=== PATIENT | male | born 1970 | race Caucasian/White ===

== ENCOUNTER 2018-02-12 23:20 | Emergency (ER) | payer OTHER, SELFPAY ==
[2018-02-12 23:21] VITALS: BP 163/81; PULSE 85; RESP 16; TEMP 37; O2SAT 100; BMI 30.8
--- NOTE | 2018-02-12 23:35 | RAD_ITS ---
STUDY: X-RAY - LEFT HAND, ATTENTION FIFTH FINGER REASON FOR EXAM: Male, 47 years old. Smash injury. TECHNIQUE: 3 view(s) of the finger were obtained. COMPARISON: None. FINDINGS: Normal metacarpal head. Normal metacarpophalangeal joint. Normal proximal phalanx. Normal middle phalanx. There is a nondisplaced fracture of the tip of the distal phalanx. Normal proximal interphalangeal joint. Normal distal interphalangeal joint. There is soft tissue swelling. RAD/Finger(s) Min 2 Views IMPRESSION: Fracture of the tip of the distal phalanx. Electronically Signed: Rolly Brandon MD at 23:53 EDT Tel , Service support ,
--- NOTE | 2018-02-12 23:36 | ED.VISSUMM ---
- ER Visit Summary Date of Service: 02/12/18 Chief Complaint: Finger injury History of Present Illness: The patient is a 47 M who is right-hand dominant. He crushed his left small finger between a skid and a metal upright at around 7:30 PM today. He has noted some pain and swelling to the distal phalanx of the small finger. He had a small abrasion which was bleeding. He does not take blood thinners. He denies any other complaints or injuries. Physical Examination: Vital signs unremarkable. Left hand shows swelling of the small finger distal phalanx, diffusely. There is a pinpoint abrasion which is not bleeding. He also has a pinpoint subungual hematoma. Nail intact and normal. No obvious deformities. Normal sensation and capillary refill. Test Results: Xrays pending. Emergency Department Course and Treatment: Patient treated with Motrin and ice pack while awaiting results. X-rays show a tuft fracture. Although he has an abrasion, this is not an open fracture. Nailbed is normal. Patient placed in AlumaFoam splint. Follow-up with corporate care. Rest, ice, elevate. Bnem-mih-lylxehg remedies for pain. Will prescribe a short course of [place]. Treatment Plan: As above Disposition: Discharged Impression: 1. Left small finger tuft fracture This note was generated with [employer] dictation software. It may contain incorrect words, spelling, and punctuation that were not noted in review of the chart prior to signing ED Disposition - Plan for ED Patient: Chief Complaint: Upper Extremity Injury Referrals: NOT,DEFINED [NON-STAFF] -
[2018-02-12] MEDS: Ibuprofen 600 MG Tablet PO (23:48)
--- NOTE | 2018-02-13 00:01 | ED.DEP ---
ED Disposition - Plan for ED Patient: Chief Complaint: Upper Extremity Injury Instructions: ED Fx Finger Closed Prescriptions: Hydrocodone Bitart/Apap 5-325 [[place] 5MG-325MG] 1 tab PO Q6H PRN PRN 3 Days #10 tab PRN Reason: Pain Referrals: Corporate,Care [GROUP OF PHYSICIANS] -
[2018-02-13] MEDS: HYDROcodone Bitartrate/Apap 5/325 Tablet PO (00:13)
== END 2018-02-13 00:13 | disposition home or self-care (01) ==
LOC: ED 23:38
PROVIDERS: Emergency Provider Emergency Medicine
DX: S62.667A Nondisplaced fracture of distal phalanx of left little finger, initial encounter for closed fracture (principal); W23.0XXA Caught, crushed, jammed, or pinched between moving objects, initial encounter; Y93.9 Activity, unspecified; Y92.9 Unspecified place or not applicable; Y99.0 Civilian activity done for income or pay; I10 Essential (primary) hypertension
CPT/HCPCS: 73140; 99284

== ENCOUNTER 2019-08-19 09:14 | Inpatient (IN) | payer BC, SELFPAY ==
[2019-08-19] VITALS (23 sets, daily range): BP systolic 113–184; BP diastolic 69–117; PULSE 65–95; RESP 14–21; TEMP 36.5–36.9; O2SAT 95–100; BMI 29.5; BMI 29.6
--- NOTE | 2019-08-19 09:30 | EKG12_ITS ---
Test Reason : REPEAT CHEST PAIN Blood Pressure : / mmHG Vent. Rate : 098 BPM Atrial Rate : 098 BPM P-R Int : 176 ms QRS Dur : 092 ms QT Int : 356 ms P-R-T Axes : 044 013 066 degrees QTc Int : 454 ms Normal sinus rhythm ST elevation consider inferior injury or acute infarct ACUTE OR / STEMI Confirmed by RONAK GREY, MASHA ([id number]), dictionary editor SRI GUZMAN ([id number]) on 08/20/2019 9:27:08 AM Referred By: Pio Olivarez Confirmed By:MASHA SIMONS MD
--- NOTE | 2019-08-19 09:30 | EKG12_ITS ---
Test Reason : CP Blood Pressure : / mmHG Vent. Rate : 093 BPM Atrial Rate : 093 BPM P-R Int : 168 ms QRS Dur : 088 ms QT Int : 370 ms P-R-T Axes : 041 018 040 degrees QTc Int : 460 ms Normal sinus rhythm Abnormal ECG Subtle ST elevation in III, AVF Confirmed by RONAK GREY, MASHA ([id number]), script editor SRI GUZMAN ([id number]) on 08/20/2019 9:28:05 AM Referred By: Pio Olivarez Confirmed By:MASHA SIMONS MD
--- NOTE | 2019-08-19 09:30 | RAD_ITS ---
STUDY: X-RAY CHEST REASON FOR EXAM: Male, 49 years old. STEMI TECHNIQUE: Single portable frontal chest. COMPARISON: June 15, 2011. FINDINGS: The lungs appear clear. There is no pleural effusion. There is no pneumothorax. Normal size heart. Normal mediastinum and fiona. Normal visualized pulmonary arteries. Normal visualized aortic arch and descending thoracic aorta. There is no evident acute osseous abnormality. There is no demonstrated abnormality of the visualized soft tissue structures of the upper abdomen. RAD/Chest 1 View (Portable) IMPRESSION: No plain film evident acute cardiopulmonary disease. Electronically Signed: Fede Mata MD at 9:48 EST , Service support ,
--- NOTE | 2019-08-19 09:38 | ED.VIS.GEN ---
History of Present Illness Chief Complaint: Chest Pain Informant: Patient Onset: Today - 5 AM Timing: Waxes and wanes Current Severity: Moderate Maximum Severity: Moderate Narrative: Patient presents with chest pain that started at 5 AM this morning when he was at work. He states it was rather severe at onset and he laid his head down on the desk. He states he has been told in the past that he had spasm in his chest and he did not think much of it. He went home and tried to lie down to sleep, but pain became worse and he presented to the emergency room. He has a history of hypertension and high cholesterol. He has not been on medications in quite some time. - Past Medical History (1) High cholesterol Status: Chronic (2) Benign essential HTN Status: Chronic Past Medical History - Allergies and Home Meds Allergies/Adverse Reactions: Allergies No Known Allergies Allergy (Verified 08/19/19 09:21) Primary Care Physician: Care Physician,No Primary [Primary Care Provider] - Prior records reviewed: Yes Surgical History: no surgical history Lives: With Family Smoking Status: Former smoker Review of Systems General: Denies: Chills, Fever Eyes: Denies: Visual changes - bilaterally ENT: Denies: Bilateral ear pain Cardiovascular: Reports: Chest pain Respiratory: Reports: Dyspnea Gastrointestinal: Denies: Nausea, Vomiting Genitourinary: Denies: Dysuria Neurological: Denies: Headache Hematologic: Denies: Easy bruising Allergy: Denies: Uticaria Physical Exam Vital Signs/Narrative: Vital Signs Temp Pulse Resp BP Pulse Ox 08/19/19 09:15 97.7 F L 95 17 174/117 H 100 Inital Vital Signs reviewed: Yes General: Well nourished, Well developed Head: Normocephalic ENT: Moist mucous membranes Neck: Supple Cardiovascular: Regular rate, Regular rhythm Respiratory: No distress, CTA bilaterally Abdomen: Soft, Nontender Skin: Normal color, Rash Neurological: Alert Psychological: - - Anxious Diagnostic/Tx/Re-eval - EKG Initial EKG Interpretation: Sinus Rhythm - Initial EKG was sinus rhythm with minimal elevation in lead III only. Follow-up EKG Interpretation: Sinus Rhythm - ST elevation in the inferior leads with reciprocal ST depression in the high lateral leads. - Medical Decision Making Initial EKG was somewhat concerning in lead III only. EKG was repeated within 5 minutes and showed clear evidence of an inferior STEMI. STEMI alert was called. I spoke with Dr. Olivarez. Patient was consented, given aspirin, Brilinta, and heparin. 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 ED Disposition - Plan for ED Patient: Disposition: Acute Care Hospital [facility] Diagnosis: STEMI (ST elevation myocardial infarction) Referrals: Care Physician,No Primary [Primary Care Provider] -
[2019-08-19 09:42] LABS: Absolute Lymphocyte Count 2.12 X10^3/uL (0.83-4.51); Absolute Neutrophil Count 7.1 X10^3/uL (2.0-7.7); Basophil# 0.05 X10^3/uL; Basophil% 0.5 % (0-1); Eosinophil# 0.14 X10^3/uL; Eosinophils% 1.4 % (0-5); Hematocrit 45.7 % (40-54); Hemoglobin 15.8 g/dL (13.0-16.5); Lymphocyte # 2.12 X10^3/ul (4.0); Lymphocyte % 20.8 % (19-41); Mean Corp Hgb Conc 34.6 g/dL (32-36); Mean Corpuscular Hgb 28.4 pg (27.0-32.0); Mean Corpuscular Volume 82.2 fL (80-94); Mean Platelet Vol. 8.7 fl (6.2-12.0); Monocyte# 0.73 X10^3/uL; Monocyte% 7.1 % (0-10); NRBC Flagged by Analyzer 0 % (0-5); Neutrophil # 7.12 X10^3/uL (2.7-7.7); Neutrophil % 69.7 % (47-70); Platelet Count 377 K/mm3 (150-450); RBC Distribution Width CV 12.7 % (11.6-14.6); RBC Distribution Width SD 37.5 fl (35.1-43.9); Red Blood Count 5.56 M/mm3 (4.6-6.2); White Blood Count 10.2 K/mm3 (4.4-11.0)
[2019-08-19 09:53] LABS: Anion Gap 6 (5-15); BUN 16 mg/dL (7-18); BUN/Creat Ratio 18.2 RATIO (10-20); Calcium,Total 9.9 mg/dL (8.5-10.1); Chloride 108 mmol/L (98-107); Creatinine, Serum 0.88 mg/dL (0.70-1.30); EST Glomerular Filtration Rate 99 mL/min (>60); Est Glom Filt Rate - Afr Amer 120 mL/min (>60); Estimated Creatinine Clearance 124.03 ml/min; Glucose 111 mg/dL (74-106); International Normalized Ratio 1.1; Partial Thromboplast Time 27.5 Seconds (24.1-36.2); Potassium 4.1 mmol/L (3.5-5.1); Prothrombin Time (Protime)PT. 13.8 SECONDS (11.7-14.9); Sodium Level 143 mmol/L (136-145)
[2019-08-19 10:36] LABS: ACT Activated Clotting Time 175 sec (74-137)
[2019-08-19 10:36] LABS: ACT Activated Clotting Time 197 sec (74-137)
--- NOTE | 2019-08-19 10:48 | ECHOCS_ITS ---
Reason For Study: CAD/ASHD Procedure This was a 2D Doppler, Color Flow transthoracic echocardiogram. Contrast injection was performed. Exam performed portable in ICU/CCU. Left Ventricle Normal size and thickness. The estimated ejection fraction is 65 %. Normal diastology for age. No regional wall motion abnormalities noted. Right Ventricle Normal size and thickness. Normal systolic function. Atria Normal left atrium. Normal right atrium. Normal atrial septum. Mitral Valve The mitral valve is structurally normal. No prolapse or stenosis seen. Tricuspid Valve Normal tricuspid valve. Trivial tricuspid valve insufficiency. Right ventricular systolic pressure estimated to be 21 mmHg. Aortic Valve Normal aortic valve. Trisinus/trileaflet aortic valve. Pulmonic Valve Normal pulmonic valve. Trivial pulmonic valve insufficiency. Great Vessels Normal aortic root. Normal arch. Normal inferior vena cava. Inferior vena cava collapse with sniff. Pericardium/Pleural No pericardial effusion. Medication Diluted definity 2ml given slow IV push to enhance endocardial definition. MMode/2D Measurements & Calculations LVIDd: 4.3 cm IVSd: 1.3 cm Ao root diam: 3.1 cm LVIDs: 3.0 cm LVPWd: 1.1 cm RVDd: 4.1 cm FS: 31.4 % LAV(MOD-bp): 37.7 ml LVAd ap4: 30.6 cm2 SV(MOD-sp4): 56.7 ml LAV(MOD-bp) Indexed: 16.1 ml/m2 EDV(MOD-sp4): 94.8 ml LAV(MOD-sp2): 51.4 ml EDV(sp4-el): 98.0 ml LAV(MOD-sp4): 24.2 ml LVAs ap4: 18.3 cm2 ESV(MOD-sp4): 38.0 ml ESV(sp4-el): 39.9 ml EF(MOD-sp4): 59.9 % EF(sp4-el): 59.3 % SV(sp4-el): 58.1 ml LA A4 area: 12.5 cm2 LA dimension(2D): 3.6 cm RA A4 area: 14.3 cm2 Doppler Measurements & Calculations MV E max jatin: 51.3 cm/sec Lat Peak E' Jatin: 8.0 cm/sec Med Peak E' Jatin: 5.1 cm/sec MV A max jatin: 52.1 cm/sec E/E' lat: 6.4 E/E' med: 10.1 MV E/A: 0.99 Ao V2 max: 95.3 cm/sec LV V1 max: 90.6 cm/sec PA V2 max: 74.0 cm/sec Ao max P.6 mmHg LV V1 max P.3 mmHg Ao V2 mean: 69.4 cm/sec Ao mean P.1 mmHg Ao V2 VTI: 19.0 cm TR max jatin: 203.6 cm/sec TR max P.6 mmHg Interpretation Summary The estimated ejection fraction is 65 %. Normal diastology for age. Trivial tricuspid valve insufficiency. Right ventricular systolic pressure estimated to be 21 mmHg. The study was technically difficult. Contrast injection was performed. There is no comparison study available. Ordering Physician: Pio Olivarez Referring Physician: Pio Olivarez Performed By: Deborah Saldana, LORETO, RVT
--- NOTE | 2019-08-19 10:49 | EKG12_ITS ---
Test Reason : AM EKG Blood Pressure : / mmHG Vent. Rate : 058 BPM Atrial Rate : 058 BPM P-R Int : 180 ms QRS Dur : 094 ms QT Int : 446 ms P-R-T Axes : 047 022 025 degrees QTc Int : 437 ms Sinus bradycardia Otherwise normal ECG Confirmed by PERLA GREY, ELI ([id number]), dials supervisor NEAL KISER ([id number]) on 08/22/2019 11:31:29 AM Referred By: Pio Olivarez Confirmed By:ELI DUNCAN MD
--- NOTE | 2019-08-19 10:57 | CL.I_ITS ---
Patient Name: ALCIDES SHAH Study Date: 08/19/2019 Performing: Pio Olivarez MD Ht: 75.19 inches 191 cm : 1970 Wt: 235.89 lbs 107 kg Age: 49 Gender: male BSA: 2.36 PROCEDURE(S) PERFORMED PB86-WBF/COR/LV TJ84-CSI, SEAN AND/OR PTCA, ARTERY OR GRAFT, SINGLE VESSEL CLINICAL PROFILE AND CO-MORBIDITIES Indications: ACS <= 24 hrs, Suspected CAD, Acute Coronary Syndrome, STEMI inferior/lateral Heart Failure: None Stress/Imaging Stress/Image Study Performed: No Angina Classification Anginal Classification w/in 2 Weeks: No symptoms CAD Presentations: STEMI. 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 Unable to cross into ostial OM1 with new 2.0 x 8 Emerge balloon, no additional PCI perfromed on ostia l OM#1. 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 Olivarez Successful Mynx Control closure of RFA. Medical management of remaining CAD. DESCRIPTION OF PROCEDURE The patient arrived to the procedure lab. The risks and benefits of the procedure as well as a full d escription of our services here and lack of surgical backup were fully explained to the patient and/o r their significant other prior to the catheterization. The Timeout was completed, verifying the martha ect patient and procedure. The patient's procedural site was prepped and draped in the usual fashion. Local anesthetic was given subcutaneously to right groin region with Lidocaine 2%. Using a modified Seldinger technique, arterial access was obtained via the right femoral artery, a 6Fr sheath was inse rted.. Left Coronary Artery selective angiography was performed in multiple views using a 4 Fr. JL5 catheter. Right Coronary Artery selective angiography was then performed in multiple views using a 4 Fr. 3DRC catheter. Left Ventriculography was performed in MANCILLA projection using a 4 Fr. Pigtail cathet er. LV to AO pullback pressures were then recordedThe images were reviewed and options discussed. A decision was then made to proceed with an Intervention, IVUS or other adjunct procedure. Arterial sheath was exchanged for a 6 Fr Sheath. ebu 3.75 Guide catheter was inserted and engaged into the LCA. runthrough Guide wire was advanced to the Circumflex. emerge 2.00 x 12 Balloon cathete r was advanced across lesion in the circumflex, mid. PTCA balloon inflated at 9 atms for 5 secs. Hailey ogram performed post balloon dilatation. PTCA balloon inflated at 10 atms for 8 secs. synergy 3.00 x 20 Drug Eluting stent was advanced across the lesion in the circumflex, mid. Angiogram performed post stent deployment. nc emerge 3.5 x 8 Balloon catheter was inserted post stent. Angiogram performed po st balloon dilatation. bmw Guide wire was inserted as a lora wire into the main circ emerge 2.00 x 1 2 Balloon catheter was advanced across lesion in the first obtuse marginal, prox. on bmw PTCA balloon inflated at 8 atms for 8 secs. PTCA balloon inflated at 10 atms for 9 secs. synergy 2.5 x 16 Drug El uting stent was advanced across the lesion in the circumflex artery, mid. Angiogram performed post stent deployment. nc emerge 3.5 x 8 Balloon catheter was inserted post stent. Contrast was injected through the sheath and the Right Iliac and Femoral artery were assessed for possible cl osure device. The arterial sheath was pulled and a Mynx closure device was deployed for hemostasis CORONARY ANGIOGRAPHY DOMINANCE: Co- Dominant LEFT HEART ASSESSMENT Left Ventricular Ejection Fraction: by LV Gram 65 % Normal Left Ventricular systolic function LVEDP: 12 mmHg Normal Left Ventricular End Diastolic Pressure Normal LV wall motion LEFT MAIN: Angiographically normal LEFT ANTERIOR DESCENDING ARTERY: Mild luminal irregularities less than 30% CIRCUMFLEX ARTERY: MID CIRC: 85 % Stenosis RIGHT CORONARY ARTERY: Mild luminal irregularities less than 30% INTERVENTION INFORMATION LESION SITE: Circumflex (Mid) Lesion Complexity: High/C, lesion at bifurcation: Yes, thrombus present: No, lesion length: 36 mm, cu lprit lesion: Yes Pre Stenosis: 85 % Pre intervention MAYELIN flow: 3 PROCEDURE: Drug Eluting Stent with pre and post dilatation Post Stenosis: 0 % Post intervention MAYELIN flow: 3 Lesion Devices: Justino Sci EMERGE MR 2.00x12 BALLOON Terumo .014 Runthrough Extra Floppy 180cm straight Medtronic 6 Fr EBU3.75 100cm Guide Catheter Justino Sci Synergy MR SEAN 3.00x20 Justino Sci NC EMERGE MR 3.50x08 BALLOON Justino Sci Synergy MR SEAN 2.50x16 Lesion Devices: Terumo .014 Runthrough Extra Floppy 180cm straight [place] .014 [employer] [place] Straight 190cm Justino Sci EMERGE MR 2.00x08 BALLOON COMPLICATIONS No Complications PROCEDURE MEDICATIONS Oxygen: 2 L/min via nasal cannula Heparin 6000 unit(s) IV 08/19/2019 09:48:11 Nitro 200 mcg IC 08/19/2019 09:47:24 Nitro 200 mcg IC 08/19/2019 09:47:24 Nitro 200 mcg IC 08/19/2019 09:50:37 SUMMARY OF HEMODYNAMIC DATA Time AIR REST ECG 09:40:38 AO 152/107 (129) SA 09:43:24 LV 143/-20, 14 10:18:50 LV 132/-16, 11 10:18:57 LVp 135/-21, 14 10:19:11 AOp 128/74 (96) 10:19:16 Signed By Pio Olivarez MD On 08/19/2019 10:56:38 AM Pio Olivarez MD
[2019-08-19 11:22] LABS: Cholesterol 255 mg/dL (200); High Density Lipoprotein 44 mg/dL; Triglycerides 109 mg/dL; Very Low Density Lipoprotein 22 mg/dL (5-40)
[2019-08-19] MEDS: 0.9% Normal Saline 1,000 ML 150 ML IV (11:47)
[2019-08-19] MEDS: Acetaminophen 325 MG Tablet 650 MG PO ×2 (11:57→18:22)
[2019-08-19] MEDS: diazePAM 5 MG Tablet PO (11:58)
[2019-08-19] MEDS: Metoprolol Tartrate 25 MG Tablet PO ×2 (12:17→21:04)
[2019-08-19] MEDS: Lisinopril 5 MG Tablet PO (12:18)
--- NOTE | 2019-08-19 12:35 | HP.PCM_ITS ---
Problem List (1) Arteriosclerosis of coronary artery in patient with history of myocardial infarction Status: Chronic Comment: Successful PTCA/SEAN to mid LCX with a 3.0 x 20 Promus Synergy. Unable to cross into ostial OM1 with new 2.0 x 8 Emerge balloon, no additional PCI perfromed on ostial OM#1. Per DJN @ [facility] 08/19/19 (2) Hyperlipidemia Status: Chronic (3) Stented coronary artery Status: Acute Comment: Successful PTCA/SEAN to mid LCX with a 3.0 x 20 Promus Synergy. Unable to cross into ostial OM1 with new 2.0 x 8 Emerge balloon, no additional PCI perfromed on ostial OM#1. 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 Patient felt sudden onset of midsternal chest pain with radiation to left arm associated with mild shortness of breath. Patient admitted that he was having shortness of breath on exertion for few weeks but he was ignored. Patient also has history of hypertension, dyslipidemia but is not on any medications. In ED, twelve-lead EKG showed ST elevation in lead III and a STEMI alert was called. Patient had aspirin and Brilinta and heparin IV bolus. Patient blood pressure was high in ED 170/117, 184/112 and was controlled. Patient had emergent cardiac cath which showed near subtotal occlusion of mid circumflex and PCI was done. Patient admitted in ICU Past Medical History Past Medical History (Chronic Problems): Chronic Problems (Last Updated 08/19/19 @ 11:03 by Ann Haji) Arteriosclerosis of coronary artery in patient with history of myocardial inf arction (Chronic) Successful PTCA/SEAN to mid LCX with a 3.0 x 20 Promus Synergy. Unable to cross into ostial OM1 with new 2.0 x 8 Emerge balloon, no additional PCI perfromed on ostial OM#1. Per DJN @ [facility] 08/19/19 Hyperlipidemia (Chronic) Calculus of kidney and ureter (Chronic) Benign essential HTN (Chronic) Aspiration pneumonia (Chronic) Medical History: Medical History (Last Updated 08/19/19 @ 11:03 by Ann Haji) Arteriosclerosis of coronary artery in patient with history of myocardial infarction (Chronic) I25.10, I25.2 Successful PTCA/SEAN to mid LCX with a 3.0 x 20 Promus Synergy. Unable to cross into ostial OM1 with new 2.0 x 8 Emerge balloon, no additional PCI perfromed on ostial OM#1. Per DJN @ [facility] 08/19/19 Hyperlipidemia (Chronic) E78.5 STEMI (ST elevation myocardial infarction) (Acute) I21.3 Calculus of kidney and ureter (Chronic) N20.2 Benign essential HTN (Chronic) I10 Aspiration pneumonia (Chronic) J69.0 Allergies No Known Allergies Allergy (Verified 08/19/19 09:21) Home Medications: Ambulatory Orders Medication Instructions Recorded Gabapentin 800 mg PO QHS 08/19/19 Pramipexole Di-HCl [Pramipexole 0.5 mg PO QHS 08/19/19 Dihydrochloride] Ramelteon 8 mg PO QHS 08/19/19 Surgical History: Surgical History (Last Updated 08/19/19 @ 11:03 by Ann Haji) Stented coronary artery (Chronic) Onset Date: 08/19/19 Z95.5 Successful PTCA/SEAN to mid LCX with a 3.0 x 20 Promus Synergy. Unable to cross into ostial OM1 with new 2.0 x 8 Emerge balloon, no additional PCI perfromed on ostial OM#1. Per DJN @ [facility] 08/19/19 Surgical History: no surgical history Lives: With Family Smoking Status: Former smoker Tobacco Use: Chew - Quit 2 years ago - *Family History Sibling History Items: Hypertension Review of Systems Constitutional: Denies: Chills, Fever, Weight Change HEENT: Denies: Head Aches, Sinus Congestion, Sinus Drainage Cardiovascular: Reports: Chest Pain. Denies: Palpitations Respiratory: Reports: Shortness of breath at rest, Shortness of breath upon exertion. Denies: Cough, Sputum production Gastrointestinal: Denies: Abdominal Pain, Nausea, Vomiting Genitourinary: Denies: Dysuria Musculoskeletal: Denies: Joint Pain, Joint Tenderness Skin: Denies: Rash, Wounds Neurological: Denies: Numbness, Tingling, Focal weakness Psychiatric: Denies: Anxiety, Depression, Homicidal Ideations, Suicidal Ideations Hematologic/ Lymphatic: Denies: Easy Bruising, Easy Bleeding VTE Information - Inpt Only VTE Present on Admission: No VTE Mechan Device Prophylaxis: None VTE Pharm Prophylaxis ordered?: Yes Patient Problems: Active and Suspected Problems (Last Updated 08/19/19 @ 11:03 by Ann Haji) Stented coronary artery (Acute 08/19/19) Successful PTCA/SEAN to mid LCX with a 3.0 x 20 Promus Synergy. Unable to cross into ostial OM1 with new 2.0 x 8 Emerge balloon, no additional PCI perfromed on ostial OM#1. Per DJN @ [facility] 08/19/19 STEMI (ST elevation myocardial infarction) (Acute) - Physical Exam Vitals/I&O's: Vital Signs Temp Pulse Resp BP Pulse Ox 98.4 F 88 18 164/112 H 98 08/19/19 12:00 08/19/19 12:17 08/19/19 12:00 08/19/19 12:17 08/19/19 12:00 Oxygen Delivery Method Room Air Weight: 236 lb 8.896 oz Body Mass Index (BMI) 29.5 Intake and Output for Last 24 Hours 08/17/19 08/18/19 08/19/19 23:59 23:59 23:59 Output Total 600 / 600 Balance -600 / -600 General: Alert, Oriented x3, Cooperative HEENT: Atraumatic, PERRLA, EOMI, Normocephalic Neck: Supple, No JVD, Negative Carotid Bruits Lungs: Clear to auscultation, Normal air movement, No rhonchi, No rales Cardiovascular: Regular rate, Regular Rhythm, Normal S1, Normal S2, No murmurs Abdomen: Bowel Sounds Present, Soft, Non Tender, Non-Distended Extremities: No edema, Capillary Refill Less than 3 Seconds Skin: No rashes, No breakdown, - - Right groin cardiac cath access site: No bruise or hematoma Musculoskeletal: No Tenderness to Palpation of Joints or Extremities Neurological: Cranial nerves II-XII grossly intact Psych/Mental Status: Normal Affect, Appropriate Laboratory Results 08/19/19 09:20: WBC 10.2, RBC 5.56, Hgb 15.8, Hct 45.7, MCV 82.2, MCH 28.4, MCHC 34.6, RDW Std Deviation 37.5, RDW Coeff of Ottoniel 12.7, Plt Count 377, MPV 8.7, Immature Gran % (Auto) 0.500, Neut % (Auto) 69.7, Lymph % (Auto) 20.8, [place] % (Auto) 7.1, Eos % (Auto) 1.4, Baso % (Auto) 0.5, Absolute Neuts (auto) 7.1, Absolute Lymphs (auto) 2.12, Nucleated RBC % 0 08/19/19 09:20: PT 13.8, INR 1.1, APTT 27.5 08/19/19 09:20: Sodium 143, Potassium 4.1, Chloride 108 H, Carbon Dioxide 29.0, Anion Gap 6, BUN 16, Creatinine 0.88, Estim Creat Clear Calc 124.03, Est GFR (MDRD) Af Amer 120, Est GFR (MDRD) Non-Af 99, BUN/Creatinine Ratio 18.2, Glucose 111 H, Calcium 9.9, Troponin I 0.076 H 08/19/19 09:20: Triglycerides 109, Cholesterol 255 H, LDL Cholesterol 189 H, VLDL Cholesterol 22, HDL Cholesterol 44 08/19/19 09:46: Activated Clotting Time 175 H 08/19/19 10:20: Activated Clotting Time 197 H Current Medications Acetaminophen (Tylenol) 650 mg PO Q6H PRN PRN PRN Reason: Pain Score 1-3/10 Last Admin: 08/19/19 11:57 Dose: 650 mg Documented by: Aspirin (Ecotrin) 81 mg PO DAILY@0800 [facility] Atorvastatin Calcium (Lipitor) 80 mg PO QHS [facility] Atropine Sulfate () 0.5 mg IV UD PRN PRN Reason: HR <50 bpm Diazepam (Valium) 5 mg PO Q6H PRN PRN PRN Reason: BACK SPASMS/ANXIETY Last Admin: 08/19/19 11:58 Dose: 5 mg Documented by: Gabapentin (Neurontin) 800 mg PO QHS [facility] Heparin Sodium (Beef Lung) (Heparin 500 Unit/5 Ml (100/Ml)) 500 unit IV UD PRN PRN Reason: HEPARIN FLUSH Sodium Chloride () 1,000 mls @ 150 mls/hr IV .Q6H40M [facility] Stop: 08/19/19 17:28 Last Admin: 08/19/19 11:47 Dose: 150 mls/hr Documented by: Labetalol HCl (Trandate) 5 mg IV X1 PRN PRN Reason: SBP > 160 when pulling sheath Lisinopril (Zestril) 5 mg PO DAILY [facility] Last Admin: 08/19/19 12:18 Dose: 5 mg Documented by: Metoclopramide HCl (Reglan) 5 mg IV Q6H PRN PRN PRN Reason: NAUSEA/VOMITING Metoprolol Tartrate (Lopressor (Beta Veronica)) 25 mg PO BID [facility] Last Admin: 08/19/19 12:17 Dose: 25 mg Documented by: Morphine Sulfate () 2 - 4 mg IV Q4H PRN PRN PRN Reason: Pain Score 1-10/10 Nitroglycerin (Nitrostat) 0.4 mg SUBLINGUAL Q5M PRN PRN Reason: CARDIAC/CHEST PAIN Non-Formulary Medication (Ramelteon) 8 mg PO QHS [facility] Pramipexole Dihydrochloride (Mirapex) 0.5 mg PO QHS [facility] Sodium Chloride () 500 ml IV BOLUS PRN PRN Reason: VASO-VAGAL PROTOCOL Ticagrelor (Brilinta) 90 mg PO BID [facility] Assessment/Plan All Active Problems (Last Updated 08/19/19 @ 11:03 by Ann Haji) Stented coronary artery (Acute 08/19/19) STEMI (ST elevation myocardial infarction) (Acute) The patient is a 49 year old M with history of hypertension and dyslipidemia came to ER with chest pain that started about 5 AM while he was at work. Patient felt sudden onset of midsternal chest pain with radiation to left arm associated with mild shortness of breath. In ED, twelve-lead EKG showed ST elevation in lead III and a STEMI alert was called. Patient had aspirin and Brilinta and heparin IV bolus. Patient blood pressure was high in ED 170/117, 184/112 and was controlled. Patient had emergent cardiac cath which showed near subtotal occlusion of mid circumflex and PCI was done. 1 Inferior wall STEMI/single-vessel coronary artery disease: Patient is admitted in ICU. Cardiac cath showed EF 65% by LV gram single-vessel coronary artery disease of mid left circumflex. On aspirin, Brilinta, lisinopril, metoprolol and high intensity statin, atorvastatin 80 mg at bedtime. 2D echo is ordered. 2. Hypertension: On lisinopril 5 mg daily. Currently blood pressure is controlled. Needs further follow-up and titrate up the dose as needed. 3. Dyslipidemia: Fasting profile shows total cholesterol 255, LDL 189, HDL 44: On atorvastatin as mentioned above. 4. DVT prophylaxis: On Lovenox 40 mg to be started 24 hours after the removal of sheath. BiLateral SCDs Code Visit Inpatient E&M: 25943 Init Hosp L3
--- NOTE | 2019-08-19 13:06 | CRPHASE1_ITS ---
Patient Communication PHII Cardiac Rehab Discussed with Patient:: Yes Guide to Cardiac Rehab Given to Patient:: Yes Cardiac Rehab Facility Choice List Given to Patient:: Yes - pt chooses [facility] Choice Program [facility] CR PHII:: Communication Given to CR, Refer to [facility] Conservation Or Heritage Architect:: Pio Olivarez Phase II Cardiac Rehab:: Yes Sessions:: 36 sessions - 3 days/wk, 12 weeks Risk Factors/Lifestyle Hx Hypertension: Yes Hx Dyslipidemia: Yes Hx Obesity: Yes Height: 1.91 m Weight:: 107.048 kg BMI: 29.5 Laboratory Values: Cardiac Rehab Phase I Labs Triglycerides 109 mg/dL (-199) 08/19/19 09:20 Cholesterol 255 mg/dL (200) H 08/19/19 09:20 LDL Cholesterol 189 mg/dL (0-130) H 08/19/19 09:20 HDL Cholesterol 44 mg/dL (40-) 08/19/19 09:20 Phase I Education Given On:: [place], Nutrition, Antiplatelet medication, CHF, Smoking cessation, Diabetes - Type I, Diabetes - Type II Issues Affecting Care:: None Knowledge of Condition:: Yes Hospital Course Cardiac Cath Date:: 08/19/19 Medical/Surgical History CA:: Yes - STEMI Hypertension:: Yes Dyslipidemia:: Yes Discharge/Home/Social Eval Discharge Disposition: Home Cardiac Rehabilitation Info Cardiac Rehabilitation Program Information: Cardiac Rehabilitation is important for patients like you who are recovering from a heart problem. Cardiac rehabilitation programs are recognized as integral to the continued care of the patient with coronary heart disease. The cardiac rehabilitation program is designed to optimize a patient's physical, psychological, and social functioning. Health neonatal intensive care unit nurse work in cardiac rehabilitation programs and assist you with getting the treatments you need to get stronger and healthier - like exercise, healthy eating habits, and medications. Cardiac rehabilitation has been show to help people with heart problems live longer and have better life enjoyment than people who do not go to cardiac rehabilitation. Please contact the Cardiac Rehabilitation Program at [facility] at in two weeks if you have not heard from them.
--- NOTE | 2019-08-19 13:10 | CRPH1.INSTRU ---
General Education CAD and cardiac anatomy and function:: Patient communicates acknowledgment Explanation of diagnoses and procedures:: Patient communicates acknowledgment Sign/Symptoms of AL:: Patient communicates acknowledgment Antiplatelet therapy: Patient communicates acknowledgment Proper use of NTG-SL: Not instructed Emergency procedures and activation of EMS: Patient communicates acknowledgment Compliance of all prescribed medications: Patient communicates acknowledgment Smoking Nicotine/Smoking Response Code:: Patient communicates acknowledgment Dyslipidemia Patient Dyslipidemia Risk Factors Are:: Total Cholesterol, Triglycerides Dyslipidemia Response Code:: Patient communicates acknowledgment Overweight/Obesity Patient Overweight/Obesity Risk Factors Are:: Overweight = 26-29 Recommendations Include:: Weight loss of 5-10%, Reduced calorie diet, Exercise 5-7 times/week Overweight/Obesity:: Patient communicates acknowledgment Hypertension Recommendations Include:: Maintain BP <130/85, BP <130/80 if diabetic, DASH dietary guidelines, Decrease/maintain normal body weight, Moderation of ETOH Hypertension:: Patient communicates acknowledgment Heart Disease Heart Disease Response Code:: Patient communicates acknowledgment Diabetes Diabetes:: Patient communicates acknowledgment Metabolic Syndrome Metabolic Syndrome Response Code:: Patient communicates acknowledgment Sedentary Sedentary Response Code:: Patient communicates acknowledgment Stress Stress Response Code:: Patient communicates acknowledgment
[2019-08-19] MEDS: Pramipexole Di-HCl 0.5 MG Tablet PO (21:04)
[2019-08-19] MEDS: Atorvastatin Calcium 80 MG Tablet PO (21:04)
[2019-08-19] MEDS: TICAGRELOR 90 MG TABLET PO (21:04)
[2019-08-19] MEDS: Gabapentin 800 MG Tablet PO (21:04)
[2019-08-19] MEDS: RAMELTEON 8 MG TABLET PO (21:05)
[2019-08-20] VITALS (18 sets, daily range): BP systolic 84–132; BP diastolic 52–87; PULSE 50–91; RESP 12–20; TEMP 36.6–37.2; O2SAT 95–100
[2019-08-20 04:15] LABS: Hematocrit 39.7 % (40-54); Hemoglobin 13.5 g/dL (13.0-16.5); Mean Corpuscular Hgb 28.3 pg (27.0-32.0); Mean Corpuscular Volume 83.2 fL (80-94); Mean Platelet Vol. 8.7 fl (6.2-12.0); Platelet Count 261 K/mm3 (150-450); RBC Distribution Width CV 12.8 % (11.6-14.6); RBC Distribution Width SD 38.6 fl (35.1-43.9); Red Blood Count 4.77 M/mm3 (4.6-6.2); White Blood Count 8.1 K/mm3 (4.4-11.0)
[2019-08-20 04:59] LABS: AST(SGOT) 23 U/L (15-37); Alanine Aminotransfer ALT/SGPT 39 U/L (16-61); Albumin, Serum 3.3 g/dL (3.2-5.0); Alkaline Phosphatase 83 U/L (45-117); Anion Gap 4 (5-15); BUN 15 mg/dL (7-18); BUN/Creat Ratio 19.4 RATIO (10-20); Calcium,Total 8.4 mg/dL (8.5-10.1); Chloride 108 mmol/L (98-107); Creatinine, Serum 0.77 mg/dL (0.70-1.30); EST Glomerular Filtration Rate 115 mL/min (>60); Est Glom Filt Rate - Afr Amer 139 mL/min (>60); Estimated Creatinine Clearance 141.75 ml/min; Globulin 3.2 g/dL (2.2-4.2); Glucose 99 mg/dL (74-106); Potassium 4.3 mmol/L (3.5-5.1); Protein, Total 6.5 g/dL (6.4-8.2); Sodium Level 139 mmol/L (136-145)
[2019-08-20] MEDS: Aspirin E.C. 81 MG Tablet PO (08:20)
[2019-08-20] MEDS: Acetaminophen 325 MG Tablet 650 MG PO ×2 (08:20→16:48)
--- NOTE | 2019-08-20 08:22 | PN_ITS ---
Patient Problems: Active and Suspected Problems (Last Updated 08/19/19 @ 11:03 by Ann Haji) Stented coronary artery (Acute 08/19/19) Successful PTCA/SEAN to mid LCX with a 3.0 x 20 Promus Synergy. Unable to cross into ostial OM1 with new 2.0 x 8 Emerge balloon, no additional PCI perfromed on ostial OM#1. Per DJN @ [facility] 08/19/19 STEMI (ST elevation myocardial infarction) (Acute) Reason for Visit: Inferior wall STEMI. 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 Currently 112/65. Heart rate normal sinus rhythm. Vitals/I&O's: Vital Signs Temp Pulse Resp BP Pulse Ox 97.9 F 79 16 112/65 100 08/20/19 04:00 08/20/19 07:31 08/20/19 07:00 08/20/19 07:00 08/20/19 07:00 Oxygen Delivery Method Room Air Weight: 231 lb 0.711 oz Body Mass Index (BMI) 29.5 Intake and Output for Last 24 Hours 08/18/19 08/19/19 08/20/19 23:59 23:59 23:59 Intake Total 1600 / 1600 120 / 120 Output Total 1350 / 1350 Balance 250 / 250 120 / 120 General: Alert, Oriented x3, Cooperative HEENT: Atraumatic, PERRLA, EOMI, Normocephalic Neck: Supple, No JVD, Negative Carotid Bruits Lungs: Clear to auscultation, Normal air movement, No rhonchi, No wheeze, No rales Cardiovascular: Regular rate, Regular Rhythm, Normal S1, Normal S2, No murmurs, - - Normal sinus rhythm on cardiac telemetry Abdomen: Bowel Sounds Present, Soft, Non Tender Extremities: No edema, Capillary Refill Less than 3 Seconds Skin: No rashes, No breakdown Musculoskeletal: No Tenderness to Palpation of Joints or Extremities Neurological: Cranial nerves II-XII grossly intact Psych/Mental Status: Normal Affect, Appropriate Laboratory Results 08/19/19 09:20: WBC 10.2, RBC 5.56, Hgb 15.8, Hct 45.7, MCV 82.2, MCH 28.4, MCHC 34.6, RDW Std Deviation 37.5, RDW Coeff of Ottoniel 12.7, Plt Count 377, MPV 8.7, Immature Gran % (Auto) 0.500, Neut % (Auto) 69.7, Lymph % (Auto) 20.8, [place] % (Auto) 7.1, Eos % (Auto) 1.4, Baso % (Auto) 0.5, Absolute Neuts (auto) 7.1, Absolute Lymphs (auto) 2.12, Nucleated RBC % 0 08/19/19 09:20: PT 13.8, INR 1.1, APTT 27.5 08/19/19 09:20: Sodium 143, Potassium 4.1, Chloride 108 H, Carbon Dioxide 29.0, Anion Gap 6, BUN 16, Creatinine 0.88, Estim Creat Clear Calc 124.03, Est GFR (MDRD) Af Amer 120, Est GFR (MDRD) Non-Af 99, BUN/Creatinine Ratio 18.2, Glucose 111 H, Calcium 9.9, Troponin I 0.076 H 08/19/19 09:20: Triglycerides 109, Cholesterol 255 H, LDL Cholesterol 189 H, VLDL Cholesterol 22, HDL Cholesterol 44 08/19/19 09:46: Activated Clotting Time 175 H 08/19/19 10:20: Activated Clotting Time 197 H 08/19/19 12:50: Troponin I 0.860 H* 08/19/19 14:45: Troponin I 1.370 H* 08/19/19 18:05: Troponin I 2.110 H* 08/20/19 04:00: WBC 8.1, RBC 4.77, Hgb 13.5, Hct 39.7 L, MCV 83.2, MCH 28.3, MCHC 34.0, RDW Std Deviation 38.6, RDW Coeff of Ottoniel 12.8, Plt Count 261, MPV 8.7 08/20/19 04:00: Sodium 139, Potassium 4.3, Chloride 108 H, Carbon Dioxide 27.0, Anion Gap 4 L, BUN 15, Creatinine 0.77, Estim Creat Clear Calc 141.75, Est GFR (MDRD) Af Amer 139, Est GFR (MDRD) Non-Af 115, BUN/Creatinine Ratio 19.4, Glucos e 99, Calcium 8.4 L, Total Bilirubin 0.70, AST 23, ALT 39, Alkaline Phosphatase 83, Total Protein 6.5, Albumin 3.3, Globulin 3.2, Albumin/Globulin Ratio 1.0 Current Medications Acetaminophen (Tylenol) 650 mg PO Q6H PRN PRN PRN Reason: Pain Score 1-3/10 Last Admin: 08/20/19 08:20 Dose: 650 mg Documented by: Aspirin (Ecotrin) 81 mg PO DAILY@0800 [facility] Last Admin: 08/20/19 08:20 Dose: 81 mg Documented by: Atorvastatin Calcium (Lipitor) 80 mg PO QHS [facility] Last Admin: 08/19/19 21:04 Dose: 80 mg Documented by: Atropine Sulfate () 0.5 mg IV UD PRN PRN Reason: HR <50 bpm Diazepam (Valium) 5 mg PO Q6H PRN PRN PRN Reason: BACK SPASMS/ANXIETY Last Admin: 08/19/19 11:58 Dose: 5 mg Documented by: Enoxaparin Sodium (Lovenox) 40 mg SC DAILY [facility] Gabapentin (Neurontin) 800 mg PO QHS [facility] Last Admin: 08/19/19 21:04 Dose: 800 mg Documented by: Heparin Sodium (Beef Lung) (Heparin 500 Unit/5 Ml (100/Ml)) 500 unit IV UD PRN PRN Reason: HEPARIN FLUSH Labetalol HCl (Trandate) 5 mg IV X1 PRN PRN Reason: SBP > 160 when pulling sheath Lisinopril (Zestril) 5 mg PO DAILY [facility] Last Admin: 08/19/19 12:18 Dose: 5 mg Documented by: Metoclopramide HCl (Reglan) 5 mg IV Q6H PRN PRN PRN Reason: NAUSEA/VOMITING Metoprolol Tartrate (Lopressor (Beta Veronica)) 25 mg PO BID [facility] Last Admin: 08/19/19 21:04 Dose: 25 mg Documented by: Morphine Sulfate () 2 - 4 mg IV Q4H PRN PRN PRN Reason: Pain Score 1-10/10 Nitroglycerin (Nitrostat) 0.4 mg SUBLINGUAL Q5M PRN PRN Reason: CARDIAC/CHEST PAIN Pramipexole Dihydrochloride (Mirapex) 0.5 mg PO QHS [facility] Last Admin: 08/19/19 21:04 Dose: 0.5 mg Documented by: Sodium Chloride () 500 ml IV BOLUS PRN PRN Reason: VASO-VAGAL PROTOCOL Ticagrelor (Brilinta) 90 mg PO BID [facility] Last Admin: 08/19/19 21:04 Dose: 90 mg Documented by: STROKE Vital Signs/Narrative: Vital Signs Pulse Resp BP Pulse Ox 08/20/19 07:31 79 08/20/19 07:00 73 16 112/65 100 08/20/19 06:00 56 L 13 98/62 99 08/20/19 05:00 50 L 17 105/85 H 98 Medical Necessity - Tobacco Use Smoking Status: Former smoker Tobacco Use: Chew - Quit 2 years ago Assessment/Plan All Active Problems (Last Updated 08/19/19 @ 11:03 by Ann Haji) Stented coronary artery (Acute 08/19/19) STEMI (ST elevation myocardial infarction) (Acute) The patient is a 49 year old M with history of hypertension and dyslipidemia came to ER with chest pain that started about 5 AM while he was at work. Patient felt sudden onset of midsternal chest pain with radiation to left arm associated with mild shortness of breath. In ED, twelve-lead EKG showed ST elevation in lead III and a STEMI alert was called. Patient had aspirin and Brilinta and heparin IV bolus. Patient blood pressure was high in ED 170/117, 184/112 and was controlled. Patient had emergent cardiac cath which showed near subtotal occlusion of mid circumflex and PCI was done. 1 Inferior wall STEMI/single-vessel coronary artery disease: Patient is admitted in ICU. Cardiac cath showed EF 65% by LV gram single-vessel coronary artery disease of mid left circumflex. On aspirin, Brilinta, lisinopril, metoprolol and high intensity statin, atorvastatin 80 mg at bedtime. 2D echo is ordered. 08/20: Discussed with lead maintenance technician. Need 1 more day of monitoring. On low-dose lisinopril 5 mg daily. Continue aspirin, Brilinta, beta-veronica metoprolol and atorvastatin. 2. Hypertension: On lisinopril 5 mg daily. Currently blood pressure is controlled. 08/20: Blood pressure is on lower side. Continue lisinopril with holding par ameter. 3. Dyslipidemia: Fasting profile shows total cholesterol 255, LDL 189, HDL 44: On atorvastatin as mentioned above. 4. DVT prophylaxis: On Lovenox 40 mg to be started 24 hours after the removal of sheath. BiLateral SCDs Code Visit Inpatient E&M: 36010 Subs Hosp L3
--- NOTE | 2019-08-20 08:48 | PN.CARD_ITS ---
Subjectve: Patient doing very well this morning. Minimal chest pain from yesterday, mostly some soreness, right groin is clean/dry/intact, no evidence of thrills, bruits or hematoma. No significant tenderness. 2+ DP and PT pulses bilaterally. EKG shows normal sinus rhythm with complete resolution of his inferior ST elevation and minimal inferior Q waves. Max troponin 2.1 thus far. Telemetry negative. Echo pending. Objective: Vital Signs Temp Pulse Resp BP Pulse Ox 98.5 F 68 13 119/77 100 08/20/19 08:00 08/20/19 08:00 08/20/19 08:00 08/20/19 08:00 08/20/19 08:00 Oxygen Delivery Method Room Air Weight: 231 lb 0.711 oz Body Mass Index (BMI) 29.5 Intake and Output for Last 24 Hours 08/18/19 08/19/19 08/20/19 23:59 23:59 23:59 Intake Total 1600 / 1600 120 / 120 Output Total 1350 / 1350 Balance 250 / 250 120 / 120 General: Awake, Alert, Oriented x 3 HEENT: PERRL, EOMI, Sclera Non Icteric Neck: Supple, Good ROM, No Lymph Node Enlargement Lungs: Clear to auscultation Cardiovascular: Regular Rhythm, Normal S1, Normal S2, No Murmurs, No Rubs, No Gallops 08/19/19 09:20: WBC 10.2, RBC 5.56, Hgb 15.8, Hct 45.7, MCV 82.2, MCH 28.4, MCHC 34.6, Plt Count 377, MPV 8.7, Immature Gran % (Auto) 0.500, Neut % (Auto) 69.7, Lymph % (Auto) 20.8, [place] % (Auto) 7.1, Eos % (Auto) 1.4, Baso % (Auto) 0.5, Absolute Neuts (auto) 7.1, Nucleated RBC % 0 08/19/19 09:20: PT 13.8, INR 1.1, APTT 27.5 08/19/19 09:20: Sodium 143, Potassium 4.1, Chloride 108 H, Carbon Dioxide 29.0, Anion Gap 6, BUN 16, Creatinine 0.88, Est GFR (MDRD) Af Amer 120, Est GFR (MDRD) Non-Af 99, BUN/Creatinine Ratio 18.2, Glucose 111 H, Calcium 9.9, Troponin I 0.076 H 08/19/19 09:20: Triglycerides 109, Cholesterol 255 H, LDL Cholesterol 189 H, VLDL Cholesterol 22, HDL Cholesterol 44 08/19/19 12:50: Troponin I 0.860 H* 08/19/19 14:45: Troponin I 1.370 H* 08/19/19 18:05: Troponin I 2.110 H* 08/20/19 04:00: WBC 8.1, RBC 4.77, Hgb 13.5, Hct 39.7 L, MCV 83.2, MCH 28.3, MCHC 34.0, Plt Count 261, MPV 8.7 08/20/19 04:00: Sodium 139, Potassium 4.3, Chloride 108 H, Carbon Dioxide 27.0, Anion Gap 4 L, BUN 15, Creatinine 0.77, Est GFR (MDRD) Af Amer 139, Est GFR (MDRD) Non-Af 115, BUN/Creatinine Ratio 19.4, Glucose 99, Calcium 8.4 L, Total Bilirubin 0.70 Rhythm: EKG: ECHO: Pending Stress Test: Cardiac Cath: PCI: CT Surgery: Holter monitor: EPS: PPM: CXR: Chest CT Scan: Medical Necessity - Tobacco Use Smoking Status: Former smoker Tobacco Use: Chew - Quit 2 years ago Assessment/Plan 1. Coronary artery disease: The patient presents with acute inferior wall ST elevation myocardial infarction and underwent successful emergent angioplasty and drug-eluting stenting x2 to the left circumflex with an excellent result. The patient has no additional coronary arteries that require further evaluation. An echocardiogram is pending. At this point I would recommend continuing the patient on baby aspirin, B rilinta, Lopressor and lisinopril. We will decrease his lisinopril to 2.5 mg a day given his asymptomatic hypotension. I would recommend continued telemetry monitoring but on a PCU status. The bernadette ent has no significant arrhythmias and is tolerating his medicines well, he may be discharged home tomorrow morning. Patient require least 1 week of work off given his STEMI and right groin access. Patient will be enrolled in cardiac rehab which will he will attend in 2 weeks time. 2. Hyperlipidemia: Patient was initiated on antilipid therapy of Lipitor. He requires aggressive LDL reduction. Repeat lipid profile in 6 weeks time. 3. Thank you very much for the opportunity to participate in the cardiac care of your patient. Discussed with Dr. Weathers. Code Visit Inpatient E&M: 33762 Subs Hosp L2
--- NOTE | 2019-08-20 09:55 | CASEMGMT ---
RN CM Assessment Presentation: PTCA/SEAN to mid LCx, PCI ostial OM#1 Intro role of CM and purpose of RN CM assessment. Demographics, PCP and Pharmacy verified. PCP: No PCP. List of [facility] PCP's given to pt (from [employer] website). Reviewed process and benefits for establishing with local PCP on discharge. Pt is agreeable would like to set this up on his own after reviewing list. Specialists: Dr. Olivarez, cardiology Preferred Pharmacy: [facility] Insurance: [employer] Prescription Benefit: yes. Reviewed Brilinta Card and copay reduction savings at pharmacy. Pt has good understanding including strict medication compliance as ordered by physician and f/u as recommended. LNOK: Drea Zambrano Living Arrangements: Lives independently, no ambulatory DME or care needs. Transportation: drives DME: Cpap Patient DC goals: Home DC PLAN: Home. Lydia PERKINS RN ACM
[2019-08-20] MEDS: Lisinopril 2.5 MG Tablet PO (10:07)
[2019-08-20] MEDS: Metoprolol Tartrate 25 MG Tablet PO ×2 (10:07→21:30)
[2019-08-20] MEDS: TICAGRELOR 90 MG TABLET PO ×2 (10:07→21:30)
--- NOTE | 2019-08-20 10:49 | EKG12_ITS ---
Test Reason : PCI Blood Pressure : / mmHG Vent. Rate : 088 BPM Atrial Rate : 088 BPM P-R Int : 182 ms QRS Dur : 088 ms QT Int : 366 ms P-R-T Axes : 057 029 029 degrees QTc Int : 442 ms Normal sinus rhythm Normal ECG Confirmed by PERLA GREY, ELI ([id number]), editorial manager GABY PRUETT ([id number]) on 08/23/2019 3:22:43 PM Referred By: Pio Olivarez Confirmed By:ELI DUNCAN MD
[2019-08-20] MEDS: Morphine 4 MG/ML Syringe IV (12:24)
[2019-08-20] MEDS: Enoxaparin 40 MG/0.4 ML Syringe SC (12:24)
--- NOTE | 2019-08-20 12:25 | CASEMGMT ---
RN CM Note: Updated pt's pharmacy correctly in computer. Bettye Ko. Call to [facility]- pharmacy is open tomorrow 9-5pm. Pt is aware. Lydia PERKINS RN ACM
[2019-08-20] MEDS: Gabapentin 800 MG Tablet PO (21:29)
[2019-08-20] MEDS: RAMELTEON 8 MG TABLET PO (21:29)
[2019-08-20] MEDS: Atorvastatin Calcium 80 MG Tablet PO (21:30)
[2019-08-20] MEDS: Pramipexole Di-HCl 0.5 MG Tablet PO (21:30)
[2019-08-21] VITALS: PULSE 71
[2019-08-21 03:15] VITALS: BP 102/59; PULSE 79; RESP 17; TEMP 36.7; O2SAT 96
[2019-08-21 04:00] VITALS: PULSE 61
[2019-08-21 07:49] VITALS: PULSE 81
--- NOTE | 2019-08-21 07:57 | DCINST_ITS ---
- Discharge Diagnoses Current Active Problems: Current Active and Chronic Problems (Last Updated 08/19/19 @ 11:03 by Ann Haji) Arteriosclerosis of coronary artery in patient with history of myocardial infarction (Chronic) Successful PTCA/SEAN to mid LCX with a 3.0 x 20 Promus Synergy. Unable to cross into ostial OM1 with new 2.0 x 8 Emerge balloon, no additional PCI perfromed on ostial OM#1. Per [facility] @ [facility] 08/19/19 Hyperlipidemia (Chronic) Stented coronary artery (Acute 08/19/19) Successful PTCA/SEAN to mid LCX with a 3.0 x 20 Promus Synergy. Unable to cross into ostial OM1 with new 2.0 x 8 Emerge balloon, no additional PCI perfromed on ostial OM#1. [facility] 08/19/19 STEMI (ST elevation myocardial infarction) (Acute) You will use the following diet at home:: Cardiac Weight Bearing Status: Weight bearing as tolerated Additional Activity Instructions:: No riding, heavy lifting or driving or heavy work for 1 week. Work off for 1 week Call your doctor if you observe: Fever of 101 or Higher, Coldness, Increased Pain, Change in Color, Inability to urinate, Inability to have a bowel movement, Shortness of breath, Dizziness, Fainting spells, Swelling in the ankles, Chest pain, Prolonged hiccoughing, Increased palpitations (irregular heartbeat), Calf discomfort, Uncontrolled pain Allergies/Adverse Reactions: Allergies No Known Allergies Allergy (Verified 08/19/19 09:21) Medications to take at Discharge Gabapentin 800 mg PO QHS 08/19/19 Pramipexole Di-HCl [Pramipexole Dihydrochloride] 0.5 mg PO QHS 08/19/19 Ramelteon 8 mg PO QHS 08/19/19 Aspirin E.C. [Ecotrin] 81 mg PO DAILY@0800 #30 tab 08/21/19 Atorvastatin Calcium [Lipitor] 80 mg PO QHS #30 tab 08/21/19 Lisinopril [Zestril] 2.5 mg PO DAILY #30 tab 08/21/19 Metoprolol Tartrate [Lopressor (beta opal)] 25 mg PO BID #60 tab 08/21/19 Nitroglycerin (INPATIENT USE) [Nitrostat] 0.4 mg SUBLINGUAL Q5M PRN #30 tab.subl 08/21/19 Ticagrelor [Brilinta] 90 mg PO BID #60 tab 08/21/19 The following prescriptions were given: Ticagrelor [Brilinta] 90 mg PO BID #60 tab Transmission Status: Pending to [id number] Aspirin E.C. [Ecotrin] 81 mg PO DAILY@0800 #30 tab Transmission Status: Pending to [facility] [place] [address] Atorvastatin Calcium [Lipitor] 80 mg PO QHS #30 tab Transmission Status: Pending to [facility] Metoprolol Tartrate [Lopressor (beta opal)] 25 mg PO BID #60 tab Transmission Status: Pending to [facility] [place] [address] Nitroglycerin (INPATIENT USE) [Nitrostat] 0.4 mg SUBLINGUAL Q5M PRN #30 tab.subl PRN Reason: Cardiac/Chest Pain Transmission Status: Pending to [facility] [facility] Lisinopril [Zestril] 2.5 mg PO DAILY #30 tab Transmission Status: Pending to [facility] [facility] Orders to be completed after discharge: Phase II, Outpatient Cardiac Rehab Location: None Selected Primary Care Physician: Care Physician,No Primary [Primary Care Provider] - Please follow up with your Primary Care Physician in: in 2 week Test Results: Test results from this visit will be discussed in further detail at your follow- up appointment, if applicable. Please Follow Up With: Pio Olivarez MD When: in 2 weeks
--- NOTE | 2019-08-21 07:58 | PCM.DC.SUM ---
Discharge Date and Diagnosis - Problem List Patient Problems: Active and Suspected Problems (Last Updated 08/19/19 @ 11:03 by Ann Haji) Stented coronary artery (Acute 08/19/19) Successful PTCA/SEAN to mid LCX with a 3.0 x 20 Promus Synergy. Unable to cross into ostial OM1 with new 2.0 x 8 Emerge balloon, no additional PCI perfromed on ostial OM#1. Per [facility] 08/19/19 STEMI (ST elevation myocardial infarction) (Acute) Date of Admission: 08/19/19 Date of Discharge: 08/21/19 - Primary Discharge Diagnosis Active and Suspected Problems (Last Updated 08/19/19 @ 11:03 by Ann Haji) Stented coronary artery (Acute 08/19/19) Successful PTCA/SEAN to mid LCX with a 3.0 x 20 Promus Synergy. Unable to cross into ostial OM1 with new 2.0 x 8 Emerge balloon, no additional PCI perfromed on ostial OM#1. Per [facility] 08/19/19 STEMI (ST elevation myocardial infarction) (Acute) - Secondary Discharge Diagnosis Chronic Problems (Last Updated 08/19/19 @ 11:03 by Ann Haji) Arteriosclerosis of coronary artery in patient with history of myocardial infarction (Chronic) Successful PTCA/SEAN to mid LCX with a 3.0 x 20 Promus Synergy. Unable to cross into ostial OM1 with new 2.0 x 8 Emerge balloon, no additional PCI perfromed on ostial OM#1. Per [facility] 08/19/19 Hyperlipidemia (Chronic) Calculus of kidney and ureter (Chronic) Benign essential HTN (Chronic) Aspiration pneumonia (Chronic) Hospital Course and Treatment Summary of Care Provided: [] The patient is a 49 year old M with history of hypertension and dyslipidemia came to ER with chest pain that started about 5 AM while he was at work. Patient felt sudden onset of midsternal chest pain with radiation to left arm associated with mild shortness of breath. In ED, twelve-lead EKG showed ST elevation in lead III and a STEMI alert was called. Patient had aspirin and Brilinta and heparin IV bolus. Patient blood pressure was high in ED 170/117, 184/112 and was controlled. Patient had emergent cardiac cath which showed near subtotal occlusion of mid circumflex and PCI was done. 1 Inferior wall STEMI/single-vessel coronary artery disease: Patient is admitted in ICU. Cardiac cath showed EF 65% by LV gram single-vessel coronary artery disease of mid left circumflex. On aspirin, Brilinta, lisinopril, metoprolol and high intensity statin, atorvastatin 80 mg at bedtime. 08/20: Discussed with forestry extension specialist. Need 1 more day of monitoring. On low-dose lisinopril 5 mg daily. Continue aspirin, Brilinta, beta-veronica metoprolol and atorvastatin. Lisinopril changed to 2.5 mg daily 08/21/2019: Echo on 08/20/2019 reported as: Interpretation Summary The estimated ejection fraction is 65 %. Normal diastology for age. Trivial tricuspid valve insufficiency. Right ventricular systolic pressure estimated to be 21 mmHg. The study was technically difficult. Contrast injection was performed. There is no comparison study available. Blood pressure is on lower side. On low-dose of lisinopril 2.5 mg daily. Advised to hold if systolic blood pressure less than 110 mmHg. 2. Hypertension: Blood pressure on lower side. On lisinopril 2.5 mg daily. Currently blood pressure is controlled. 08/20: Blood pressure is on lower side. Continue lisinopril with holding parameter. 3. Dyslipidemia: Fasting profile shows total cholesterol 255, LDL 189, HDL 44: On atorvastatin as mentioned above. 4. DVT prophylaxis: On Lovenox 40 mg to be started 24 hours after the removal of sheath. BiLateral SCDs Discharge medication reconciliation done. Discharge follow-up instructions completed. Discharge process discussed with the patient and all questions were answered to patient's satisfaction. Patient was advised no heavy work/lifting, riding or driving for 1 week. Work off for 1 week. Prescription sent to the patient's pharmacy. Total time spent, exact 35 minutes on discharge meds reconciliation, examination, review of imaging and blood test and discussion with the patient on follow-up instructions. Patient Problems: Active and Suspected Problems (Last Updated 08/19/19 @ 11:03 by Ann Haji) Stented coronary artery (Acute 08/19/19) Successful PTCA/SEAN to mid LCX with a 3.0 x 20 Promus Synergy. Unable to cross into ostial OM1 with new 2.0 x 8 Emerge balloon, no additional PCI perfromed on ostial OM#1. Per [facility] @ [facility] 08/19/19 STEMI (ST elevation myocardial infarction) (Acute) Subjective: Seen and examined. Telemetry shows normal sinus rhythm. No acute events overnight. Blood pressure overnight was 108/69, 102/59 - Physical Exam Vitals/I&O's: Vital Signs Temp Pulse Resp BP Pulse Ox 98.0 F 81 17 102/59 L 96 08/21/19 03:15 08/21/19 07:49 08/21/19 03:15 08/21/19 03:15 08/21/19 03:15 Oxygen Delivery Method Room Air Weight: 231 lb 0.711 oz Body Mass Index (BMI) 29.5 Intake and Output for Last 24 Hours 08/19/19 08/20/19 08/21/19 23:59 23:59 23:59 Intake Total 1600 / 1600 1320 / 1320 120 / 120 Output Total 1350 / 1350 Balance 250 / 250 1320 / 1320 120 / 120 General: Alert, Oriented x3, Cooperative HEENT: Atraumatic, PERRLA, EOMI, Normocephalic Neck: Supple, No JVD, Negative Carotid Bruits Lungs: Clear to auscultation, Normal air movement, No rhonchi, No wheeze, No rales Cardiovascular: Regular rate, Regular Rhythm, Normal S1, Normal S2, No murmurs Abdomen: Bowel Sounds Present, Soft, Non Tender, Non-Distended Extremities: No edema, Capillary Refill Less than 3 Seconds, - - Right groin hematoma Skin: No rashes, No breakdown Musculoskeletal: No Tenderness to Palpation of Joints or Extremities, Arthritic Changes Neurological: Cranial nerves II-XII grossly intact, Deep Tendon Reflexes 2+/4 and Symmetrical, Neuro grossly intact, Motor Exam 5/5 strength throughout Psych/Mental Status: Normal Affect, Appropriate Current Medications Acetaminophen (Tylenol) 650 mg PO Q6H PRN PRN PRN Reason: Pain Score 1-3/10 Last Admin: 08/20/19 16:48 Dose: 650 mg Documented by: Aspirin (Ecotrin) 81 mg PO DAILY@0800 [facility] Last Admin: 08/20/19 08:20 Dose: 81 mg Documented by: Atorvastatin Calcium (Lipitor) 80 mg PO QHS [facility] Last Admin: 08/20/19 21:30 Dose: 80 mg Documented by: Atropine Sulfate () 0.5 mg IV UD PRN PRN Reason: HR <50 bpm Diazepam (Valium) 5 mg PO Q6H PRN PRN PRN Reason: BACK SPASMS/ANXIETY Last Admin: 08/19/19 11:58 Dose: 5 mg Documented by: Enoxaparin Sodium (Lovenox) 40 mg SC DAILY [facility] Last Admin: 08/20/19 12:24 Dose: 40 mg Documented by: Gabapentin (Neurontin) 800 mg PO QHS [facility] Last Admin: 08/20/19 21:29 Dose: 800 mg Documented by: Heparin Sodium (Beef Lung) (Heparin 500 Unit/5 Ml (100/Ml)) 500 unit IV UD PRN PRN Reason: HEPARIN FLUSH Labetalol HCl (Trandate) 5 mg IV X1 PRN PRN Reason: SBP > 160 when pulling sheath Lisinopril (Zestril) 2.5 mg PO DAILY [facility] Last Admin: 08/20/19 10:07 Dose: 2.5 mg Documented by: Metoclopramide HCl (Reglan) 5 mg IV Q6H PRN PRN PRN Reason: NAUSEA/VOMITING Metoprolol Tartrate (Lopressor (Beta Veronica)) 25 mg PO BID [facility] Last Admin: 08/20/19 21:30 Dose: 25 mg Documented by: Morphine Sulfate () 2 - 4 mg IV Q4H PRN PRN PRN Reason: Pain Score 1-10/10 Last Admin: 08/20/19 12:24 Dose: 2 mg Documented by: Nitroglycerin (Nitrostat) 0.4 mg SUBLINGUAL Q5M PRN PRN Reason: CARDIAC/CHEST PAIN Pramipexole Dihydrochloride (Mirapex) 0.5 mg PO QHS [facility] Last Admin: 08/20/19 21:30 Dose: 0.5 mg Documented by: Sodium Chloride () 500 ml IV BOLUS PRN PRN Reason: VASO-VAGAL PROTOCOL Ticagrelor (Brilinta) 90 mg PO BID [facility] Last Admin: 08/20/19 21:30 Dose: 90 mg Documented by: Home Medications: Medications to take at Discharge Gabapentin 800 mg PO QHS 08/19/19 Pramipexole Di-HCl [Pramipexole Dihydrochloride] 0.5 mg PO QHS 08/19/19 Ramelteon 8 mg PO QHS 08/19/19 Aspirin E.C. [Ecotrin] 81 mg PO DAILY@0800 #30 tab 08/21/19 Atorvastatin Calcium [Lipitor] 80 mg PO QHS #30 tab 08/21/19 Lisinopril [Zestril] 2.5 mg PO DAILY #30 tab 08/21/19 Metoprolol Tartrate [Lopressor (beta veronica)] 25 mg PO BID #60 tab 08/21/19 Nitroglycerin (INPATIENT USE) [Nitrostat] 0.4 mg SUBLINGUAL Q5M PRN #30 tab.subl 08/21/19 Ticagrelor [Brilinta] 90 mg PO BID #60 tab 08/21/19 Following Prescrptions Were Given to Patient: Ticagrelor [Brilinta] 90 mg PO BID #60 tab Transmission Status: Pending to [address] Aspirin E.C. [Ecotrin] 81 mg PO DAILY@0800 #30 tab Transmission Status: Pending to [address] Atorvastatin Calcium [Lipitor] 80 mg PO QHS #30 tab Transmission Status: Pending to [address] Metoprolol Tartrate [Lopressor (beta veronica)] 25 mg PO BID #60 tab Transmission Status: Pending to [address] Nitroglycerin (INPATIENT USE) [Nitrostat] 0.4 mg SUBLINGUAL Q5M PRN #30 tab.subl PRN Reason: Cardiac/Chest Pain Transmission Status: Pending to [address] Lisinopril [Zestril] 2.5 mg PO DAILY #30 tab Transmission Status: Pending to [address] Other Amb Orders: Phase II, Outpatient Cardiac Rehab Location: None Selected Primary Care Physician: Care Physician,No Primary [Primary Care Provider] - Please Follow Up With: Pio Olivarez MD Medical Necessity - Tobacco Use Smoking Status: Former smoker Tobacco Use: Chew - Quit 2 years ago Meaningful Use Info Meaningful Use Diagnoses (Choose all that apply): AMI - AMI Aspirin given w/in 24hrs of arrival?: Yes ASA at discharge?: Yes Statins at discharge?: Yes Karthikeyan/ARB at discharge?: Yes Beta Veronica at discharge?: Yes Done w/ Acute UT measure.: Yes Documented LVEF (%): 65 Code Visit Inpatient E&M: 15935 Disch Hosp
--- NOTE | 2019-08-21 08:33 | PCM.PN.CARD ---
Subjectve: Patient doing very well this morning. No further chest pain, ambulated around without difficulty. Telemetry negative. EKG demonstrates normal sinus rhythm with resolving inferior wall myocardial infarction. Hemoglobin and creatinine are within nominal limits. Objective: Vital Signs Temp Pulse Resp BP Pulse Ox 98.0 F 81 17 102/59 L 96 08/21/19 03:15 08/21/19 07:49 08/21/19 03:15 08/21/19 03:15 08/21/19 03:15 Oxygen Delivery Method Room Air Weight: 231 lb 0.711 oz Body Mass Index (BMI) 29.5 Intake and Output for Last 24 Hours 08/19/19 08/20/19 08/21/19 23:59 23:59 23:59 Intake Total 1600 / 1600 1320 / 1320 120 / 120 Output Total 1350 / 1350 Balance 250 / 250 1320 / 1320 120 / 120 General: Awake, Alert, Oriented x 3 HEENT: PERRL, EOMI, Sclera Non Icteric Neck: Supple, Good ROM, No Lymph Node Enlargement Lungs: Clear to auscultation Cardiovascular: Regular Rhythm, Normal S1, Normal S2, No Murmurs, No Rubs, No Gallops Vascular: No Carotid Bruits, Normal Femoral Pulses, Normal Radial Pulses, Normal Dorsalis Pedal Pulse, Normal Posterior Tibial Pulses Abdomen: Bowel Sounds Present, Soft, Non Tender, No HSM, No Organomegaly Extremities: No Cyanosis, No Clubbing, No edema Neurological: No Focal Motor or Sensory Deficit Rhythm: EKG: ECHO: Stress Test: Cardiac Cath: PCI: CT Surgery: Holter monitor: EPS: PPM: CXR: Chest CT Scan: Medical Necessity - Tobacco Use Smoking Status: Former smoker Tobacco Use: Chew - Quit 2 years ago Assessment/Plan 1. Coronary artery disease: The patient presents with acute inferior wall ST elevation myocardial infarction and underwent successful emergent angioplasty and drug-eluting stenting x2 to the left circumflex with an excellent result. The patient has no additional coronary arteries that require further evaluation. An echocardiogram is pending. At this point I would recommend continuing the patient on baby aspirin, Brilinta, Lopressor and lisinopril. Patient's blood pressure seems to be tolerating lower dose lisinopril. Patient had no further arrhythmias overnight. Patient may be discharged home and follow-up with Dr. Olivarez going forward. He will be enrolled in cardiac rehab in 2 weeks time. Arrangements will be made for the patient to see us in the office in 1 to 2 weeks time. Patient require least 1 week of work off given his STEMI and right groin access. 2. Hyperlipidemia: Patient's LDL was 189, and HDL was 44. Patient was initiated on antilipid therapy of Lipitor. He requires aggressive LDL reduction. Repeat lipid profile in 6 weeks time. 3. Thank you very much for the opportunity to participate in the cardiac care of your patient. Patient will be discharged home. Code Visit Inpatient E&M: 74420 Subs Hosp L2
[2019-08-21 09:03] VITALS: BP 151/99; PULSE 78; RESP 16; TEMP 36.8; O2SAT 99
[2019-08-21 09:05] VITALS: PULSE 85
[2019-08-21] MEDS: Aspirin E.C. 81 MG Tablet PO (09:05)
[2019-08-21] MEDS: Metoprolol Tartrate 25 MG Tablet PO (09:05)
[2019-08-21] MEDS: TICAGRELOR 90 MG TABLET PO (09:05)
[2019-08-21] MEDS: Lisinopril 2.5 MG Tablet PO (09:08)
--- NOTE | 2019-08-21 10:00 | EKG12_ITS ---
Test Reason : AM EKG Blood Pressure : / mmHG Vent. Rate : 065 BPM Atrial Rate : 065 BPM P-R Int : 172 ms QRS Dur : 092 ms QT Int : 406 ms P-R-T Axes : 048 009 012 degrees QTc Int : 422 ms Normal sinus rhythm Inferior infarct , age undetermined Abnormal ECG When compared with ECG of 20-AUG-2019 05:31, MANUAL COMPARISON REQUIRED, DATA IS UNCONFIRMED Confirmed by RONAK GREY, MASHA ([id number]), newspaper editor managing SRI GUZMAN ([id number]) on 08/27/2019 9:15:07 AM Referred By: Pio Olivarez Confirmed By:MASHA SIMONS MD
== END 2019-08-21 09:35 | disposition home or self-care (01) | DRG 247 ==
LOC: ED 09:33 → ICU 09:40
PROVIDERS: Admitting Provider Internal Medicine; Emergency Provider Emergency Medicine; Referring Provider Internal Medicine Cardiovascular Disease; Visit Provider Internal Medicine
DX: I21.19 ST elevation (STEMI) myocardial infarction involving other coronary artery of inferior wall (principal); I10 Essential (primary) hypertension; E78.5 Hyperlipidemia, unspecified; I25.10 Atherosclerotic heart disease of native coronary artery without angina pectoris; Z87.891 Personal history of nicotine dependence
CPT/HCPCS: 71045; 80048; 80053; 80061; 84484; 85025; 85027; 85347; 85610; 85730; 92941; 93005; 93306; 93458; 99284; J7030; J7040; Q9957; Q9967; A4216; C1725; C1769; C1874; C1887; C8929; C9606

== ENCOUNTER → 2020-04-17 14:16 | Outpatient (CLI) | payer BC, SELFPAY ==
[2019-08-19 13:10] VITALS: BMI 29.5
[2020-04-06 11:08] VITALS: BMI 29.8
--- NOTE | 2020-04-17 14:41 | PCM.CR.HP2 ---
CR - History & Physical - General Arrival date:: 04/17/20 Arrival time:: 14:15 Date of Referral:: 08/19/19 - DELAYED START DUE TO COVID- Date of CR Evaluation:: 04/17/20 Referring Physician: DR. DIEZ patient will be going under Dr. Raymond's services Primary Diagnosis: STEMI, S/P PCI w/coronary stenting - History of Present Cardiac Event Onset Date: Enter Onset Date of cardiac illnesses in Comment field below Acute Myocardial Infarction within 12 months:: Yes - STEMI 08/19/20196 PTCA or coronary stenting:: Yes - 08/19/2019 Type of Symptoms:: CHEST PAIN, DIAPHORESIS, NAUSEA, SHORTNESS OF BREATH Interventions with present event:: HEART CATH / STENT PLACEMENT - Medications Home Medications: Ambulatory Orders Medication Instructions Recorded Gabapentin 800 mg PO QHS 08/19/19 Pramipexole Di-HCl [Pramipexole 0.5 mg PO QHS 08/19/19 Dihydrochloride] Ramelteon 8 mg PO QHS 08/19/19 Nitroglycerin (INPATIENT USE) 0.4 mg SUBLINGUAL Q5M PRN #30 08/21/19 [Nitrostat] tab.subl losartan 25 mg tablet 12.5 mg PO DAILY #30 tab 09/03/19 aspirin 81 mg tablet,delayed 81 mg PO DAILY@0800 #30 tab 09/17/19 release atorvastatin 80 mg tablet 80 mg PO QHS #30 tab 09/17/19 metoprolol tartrate 25 mg tablet 25 mg PO BID #60 tab 09/17/19 ticagrelor 90 mg tablet 90 mg PO BID #60 tab 09/17/19 - Allergies Allergies/Adverse Reactions: Allergies lisinopril Adverse Reaction (Intermediate, Verified 09/03/19 14:34) cough - Sleep Disorder Evaluation Hx of Sleep Apnea: Yes Do you snore loudly (louder than talking or can be heard through closed doors)?: Yes - PATIENT HAS CPAP at HS Do you often feel tired/ fatigued/ sleepy during daytime?: No Has anyone observed you stop breathing during sleep?: No History of Hypertension (for STOP score): Yes STOP Results: Positive Advanced Directives - Advanced Directives Power of Fermentation Scientist: No Living Will: No Advance Directives Information Provided: Yes Advance Directives on File: No DNR Order?:: No - MOLST See MOLST form: No Past Medical History - Covid-19 Screening Fever: No Unexplained muscle aches: No Current respiratory symptoms: No Upper respiratory infections symptoms: No Gastro-intestinal symptoms: No Hbs-Cqud-Ikhifj symptoms: No Has tested positive for COVID-19 in last 30 days: No Had contact w/person w/symptoms or Covid-19 (+) last 14 days: No Has High Risk Exposures ID'd by Health dept/Inf Control team: No 65 years or older:: No Lives in Assisted Living facility:: No Has a chronic lung disease or moderate to severe asthma:: No Has a serious heart condition:: No Immunocompromised:: No Severely obese (Body Mass Index of 40 or higher):: No Diabetic:: No Has chronic kidney disease undergoing dialysis:: No - Past Medical Illness Medical History: Past Medical History (Last Reviewed 04/06/20 @ 11:08 by Ann Haji) Arteriosclerosis of coronary artery in patient with history of myocardial infarction (Chronic) I25.10, I25.2 Successful PTCA/SEAN to mid LCX with a 3.0 x 20 Promus Synergy. Unable to cross into ostial OM1 with new 2.0 x 8 Emerge balloon, no additional PCI perfromed on ostial OM#1. 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 Unable to cross into ostial OM1 with new 2.0 x 8 Emerge balloon, no additional PCI perfromed on ostial OM#1. Per DJN @ [facility] 08/19/19 Surgical History: no surgical history Social History - Smoking History Smoking Status: Former smoker Hx Tobacco Use: No Hx Smoking Exposure: No - Alcohol Use Alcohol Usage: Yes - SOCIALLY, - Substance Abuse Hx Substance Use: No - Occupation Occupation (List type of work in comments):: Employed Hours worked per day:: 12 - GOING TO 12 HOUR SHIFTS 6A-6P - Hobbies, Recreation, Social Activities Hobbies: Other Recreational Activities: I am able to engage in all my recreational activities Social Environment - Status Marital Status: - Current Living Arrangements Living Environment:: Spouse - Children How many children do you have?: 5 Do any of your children live nearby?: Yes - OLDEST 25, YOUNGEST AGE 7 - Safety Do you feel safe in your surroundings?: Yes - Assistance Do you need any assistance at home?: NONE Review of Systems - Review of Systems Hints: Right click = Denies (Slash). Left click = Reports (Humphrey) Review of Present Symptoms: Reports: Dizziness/Lightheadedness - IF RAISE UP TO FAST; STILL GETTING USED TO LOW BP., Sleep - Normal. 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 PATIENT WAS REFERRED BY DR. SIDRA DIEZ BUT WILL BE TRANSFERRING TO DR. RAYMOND'S SERVICES DUE TO THE DEPARTURE OF DR. DIEZ. - Vital Signs Temperature: 97.2 F Respiratory Rate: 124 Pulse Ox: 97 Blood Pressure: 120/68 - Pulse Pulse Rate: 91 - Hypertension Blood Pressure Sitting - Left Arm: 120/68 - Stress Stress: Recent, Work-related, Home/Family - Blood Cholesterol/Lipids Total Cholesterol (mg/dL) Goal = less than 200 mg/dL: 150 - 08/19/2019 HDL Cholesterol (mg/dL) Goal = less than 40 mg/dL: 44 LDL Cholesterol (mg/dL) Goal = less than 70 mg/dL: 189 Triglycerides (mg/dL) Goal = less than 150 mg/dL: 109 - Obesity Height: 6 ft 3 in Weight:: 239 lb Weight in Pounds: 239.0 lbs Weight Source: Estimated by Patient Body Mass Index (BMI): 29.8 Nutritional Referral for Obesity: No - Physical Inactivity Physical Inactivity: Reg Exercise 30 min/day, Physically demanding job - Risk Stratification Risk Guidelines: Lowest Risk: Risk Factor for Smoking, Risk Factor for Dyslipidemia, Risk Factor for Diabetes, Risk Factor for Hypertension, Risk Factor for Sedentary Lifestyle, Risk Factor for Depression, Moderate Risk: Risk Factor for Obesity - For Smoking Smoking Risk Guidelines: Smoking Low Risk: None or quit greater than 6 months ago. Smoking Moderate Risk: Smoker or quit 6 months or less ago. Smoking High Risk: Smoker - For Dyslipidemia Dyslipidemia Risk Guidelines: Low Risk: Moderate Risk: High Risk: 15-25% fat 25.1-29% fat >/= 30% fat. <7% sat fat 7-9% sat fat >9% sat fat. <150 mg chol 150-299 mg chol >/= 300 mg chol. LDL <100 LDL 100-129 LDL >/= 130. Chol/HDL ratio <5.0 Chol/HDL ratio 5.0-6.0 Chol/HDL ratio >6.0. Triglycerides <100 Triglycerides 100-149 Triglycerides >/= 150 - For Diabetes Mellitus Diabetes Risk Guidelines: Diabetes Low Risk: HgA1c <6.5% and/or FBG <120. Diabetes Moderate Risk: HgA1c 6.6-7.9% and/or FBG 120-180. Diabetes High Risk: HgA1c >/= 8% and/or FBG >180 - For Obesity/Overweight Obesity/Overweight Risk Guidelines: Obesity Low Risk: BMI <25.0. Obesity Moderate Risk: BMI 25-29.9. Obesity High Risk: BMI >/= 30.0 - For Hypertension Hypertension Risk Guidelines: Hypertension Low Risk: Systolic <120 and Diastolic <80. Hypertension Moderate Risk: Systolic 120-139 and Diastolic 80-89. Hypertension High Risk: Systolic >/= 140 and Diastolic >/= 90 - For Sedentary Lifestyle Sedentary Lifestyle Risk Guidelines: Sedentary Lifestyle Low Risk: >/= 1,500 kcal/week. Sedentary Lifestyle Moderate Risk: 700-1,499 kcal/week. Sedentary Lifestyle High Risk: < 700 kcal/week - For Depression Depression Risk Guidelines: Depression Low Risk: Not clinically depressed. Depression Moderate Risk: Mildly depressed. Depression High Risk: Clinically depressed Motivation - Motivation to Participate On a scale of 1 to 10, how prepared are you to commit to attending program?: 9 What do you see as barriers to successfully being able to complete the program?: WORK SCHEDULE SINCE CHANGE JOBS AND GOING TO 12 HOUR SHIFTS What do you see as the benefits of succesfully completing the program? In other words, what do you hope to get out of participating in the program?: GET HEALTHIER Are there issues you are dealing with that will interfere with completing the program?: NONE Do you have a spouse or signficant other, family or friends who will help support you to complete the program?: YES
--- NOTE | 2020-04-17 14:42 | CR.ITP_ITS ---
Diagnosis - General Information Admitting Diagnosis: STEMI, S/P PCI W/CORONARY STENT Personal Learning Style:: Audio/Visual, Written Barriers to Learning: Vision Impairment Gave educational material for:: Treating Heart Disease, Emotions & Heart Disease, Stress Management & Relaxation, Sleep Disorders & Heart Disease, How The Heart Works, What it means to have Heart Disease, How Coronary Artery Disease is Diagnosed, Heart Procedures, What Heart Medications Do, Risk Factors & Modifications, Living an Active Life, Nutrition - Education/Goals Individual Counseling: Initial Assessment: Abnormal Cholesterol Levels, High Blood Pressure Cardiac Rehabilitation Goals: 1. Maintain the individual as the primary focus of care. 2. To improve the patient's quality of life. 3. Identification of cardiac risk factors and provide cardiac risk factor management. 4. Enhance the psychosocial status of the patient. 5. Reconditioning enough to allow the patient to resume customary activities. 6. Control symptoms of cardiac disease Personal Goals: Initial Assessment: Improve energy level, Participate in home exercise program, Improve muscle strength and endurance, Improve diet and eating habits (eat healthier), Control risk factors (learn risk factor modification) Scale for measuring improvement of personal goals: Enter appropriate number in Comments. 2 = Unchanged. 3 = Slightly Better. 4 = Moderate Improvement. 5 = Met my Goal - Diagnosis & Disease Process Outcomes/Goals: Pt IDs own risk factors & lifestyle modifications by Session 10, Verbalizes symptoms of angina & response by session 3., Pt independently manages Plan/Interventions: Assist Pt to ID & engage in lifestyle modification to reduce CVD risk, Instruct on individual risk factors, Review symptoms of angina & emergency actions, Review secondary diagnosis & identify educational needs. - Safety Referral to Physical Therapy: No Referral to [facility] Case Management: No Fall Risk Assessed:: Yes Assistive Devices:: None Exercise - Initial Assessment - Visit Date of Eval: 04/17/20 Session #:: 0 - PRE CARDIAC REHAB EVALUATION Mets: Pre-: >7 METS for 30 minutes by discharge - Physician Prescribed Exercise Modalities: Treadmill, Rower, Airdyne, NuStep Frequency: 2x/week for 18 weeks [36 sessions] - PATIENT CHANGING JOBS TO 12 HOUR SHIFTS, MAY ONLY BE DOING 2 DAYS PER WEEK DUE TO WORK SCHEDULE Intensity: 60-80% of age predicted maximum heart rate reserve Target Heart Rate:: 112-146 EKG Type: NSR Current Physical Activity or Exercising minutes: PHYSICAL RELATED JOB - Outcomes & Goals Goals:: Verbalizes understanding of THR, RPE & goal METS by session 6, Documents in home exercise log/reports 30 min aerobic 5 day/wk by DC, Demonstrates accurate pulse taking by DC - Intervention & Plan Exercise Program Goals: Instruct on personal THR & RPE, Instruct on MET level & personal MET goal, Show patient to take own pulse /validate performance until accurate, Instruct on home exercise - Physical Activity Home Exercise Physical Activity - Home Exercise: Safe Exercise, Warm-up, Self-monitoring, Cool-Down, Home Exercise > 30 min Daily, Sitting Time <3 hours/daily - Outcomes & Goals Outcomes/Goals: Demonstrates correct Warm-up/exercise Cool-Down (S3) if = 2.5 METs, Verbalizes symptoms of exercise intolerance by Session 3 (S3), Demonstrate safe equipment use (S3) & follows exercise prescrition (6) - Intervention & Plan Plan/Intervention: Instruct warm-up & cool-down if exercising at > 2 METs, Instruct on symptoms of exercise intolerance & actions to take, Instruct & monitor on saf, Assess intial functional capacity & safety risk Nutrition - Initial Assessment - Program Goals Nutrition Program Goals: LDL <100 optimal. 100 - 129 Near optimal. 130 - 159 Borderline High. 160 - 189 High. Total Cholesterol <200 desirable. 200 - 239 Borderline High. >/= 240 High. HDL < 40 Low >/=60 High. Triglycerides <150 desirable. <199 optimal. VlDL 5 - 40. HgbA1C <7%. BMI <25 Patient has diagnosis of Hyperlipidemia (ICD E78)?: Yes - Visit Date of Assessment:: 04/17/20 Session #:: 0 - PRE CARDIAC REHAB ASSESSMENT - Cholesterol/Lipids Triglycerides (mg/dL): 109 - 08/20/2019 Total Cholesterol (mg/dL): 150 LDL Cholesterol (mg/dL): 189 HDL Cholesterol (mg/dL): 44 Determine presence & major risk factors that modify LDL goal: Hypertension or hypertensive medication, Age men > 45 years; women >/= 55 years Outcomes/Goals: Pt IDs own risk factors & lifestyle modifications by Session 10, Verbalizes symptoms of angina & response by session 3., Pt independently manages Intervention/Plan: Instruct on personal lipid levels & lipid goals/NCEP guidelines, Instruct on cholesterol Referral to dietitian:: Yes - MEDICAL NUTRITION THERAPY - Diabetes (Other Core Measures) Diabetes Type: Not Applicable - Weight Mgt (Other Care) Not Applicable: Yes Height: 6 ft 3 in Weight:: 239 lb BMI: 29.8 Diagnosis Overweight/Obesity BMI> 30% ICD-10 E66: No Diagnosis High BMI/Morbid Obesity BMI> 35% ICD-10 Z68: No Outcomes/Goals: Pt sets, maintains & shows weight loss goal & trend during rehab Intervention/Plan: Instruct on ideal BMI & set weight loss goal w/patient - Healthy Eating Habits Will attend diet classes:: Yes Outcomes/Goals:: Consume diet rich in vegs,fruits,whole grain/high fiber,fish,lean meat, Limit sat/trans fats,cholesterol & added salts & sugars Intervention/Plan:: Assess current eating habits - Education Gave educational materials for:: Healthy eating Medical - Initial Assessment - Visit Date of Eval: 04/17/20 Session #:: 0 - PRE CARDIAC REHAB - Medication Compliance Preventative Medication(s):: Aspirin, Ticagrelor/P2Y12 inhibitor, Statin/lipid, Beta opal H/O mental health issues: depression, anxiety, or addiction?: No Doesn?t believe in the benefits of treatment?: No Believes medications are unnecessary or harmful?: No Has a concern about medication side effects?: No Expresses concern over the cost of medications?: No Outcomes/Goals: Verbalizes medications,desired effect & common side effects @ DC, Pt self-reports following medication regimen, Keeps card in wallet w/medications listed by DC Interventions/plans: Instruct on medication effects & side effects, Review medication list w/patient every two weeks, Instruct importance of taking meds as ordered & assist problem solving - Tobacco Use Tobacco Use: Non-smoker - Hypertension Resting Blood Pressure:: 120/68 [place] [employer] Hypertension Guidelines: [place] [employer] Hypertension Guidelines. Normal BP Less than 120/80. Elevated BP 120/80. Hypertension Stage 1: BP 130-139/80-89. Hypertesnion Stage 2: BP 140 or higher/90 or higher. Hypertension Crisis: BP higher than 180/120 - Tobacco Cessation Referral Smoking Cessation Referral:: No Individual Education/Counseling:: No Education Schedule Given:: Yes Psychosocial - Initial Assess - VIsit Date of Eval: 04/17/20 Session #:: 0 - PRE-CARDIAC REHAB Not Applicable: No History of previous Mental disease:: No History of Emotional Disorders: Depression Self-reported stressors: Family, Financial - Target Goals Target Goals: Assess presence or absence of depression. Using a valid screening tool, maximizes coping skills. Positive support system - Psychosocial Test Tool Used:: Eric Burrows QOL Cardiac, PHQ-9 Questionnaire phq-9 Severity: Severity. 1-4 Minimal Depression. 5-9 Mild Depression. 10-14 Moderate Depression. 15-19 Moderately Sever Depression. 20-27 Severe Depression. Rule: - Referral to Behavioral Health PS - Interventions: Yes Attend Stress Management Classes, No Referral to Behavioral Health if PHQ-9 score >9:, No Referral to [facility], No Referral to Physician if PHQ-9 if score is 5-9: - Outcomes/Goals: See list Psychosocial Outcomes/Goals:: ID's personal stressors & 2 strategies to manage stress by discharge - Intervention/Plan: See List Interventions/Plan:: Assess stressors,coping strategies & signs of derpression on admission, Instruct/assist pt to develop coping & personal stress Mgt strategies, Instruct patient to recognize signs & symptoms of depression, Instruct patient to recog Patient Health Questionnaire Initial Assessment 1. Little interest or pleasure in doing things: More than half the days 2. Feeling down, depressed, or hopeless: Several days 3. Trouble falling or staying asleep, or sleeping too much: More than half the days 4. Feeling tired or having little energy: More than half the days 5. Poor appetite or overeating: Nearly every day 6. Feeling bad about yourself -- or that you are a failure or have let yourself or your family down: Not at all 7. Trouble concentrating on things, such as reading the newspaper or watching television: Not at all 8. Moving or speaking so slowly that other people could have noticed. Or the opposite - being so fidgety or restless that you have been moving around a lot more than usual: Not at all 9. Thoughts that you would be better off , or of hurting yourself in some way: Not at all How difficult have these problems made it for you to do your work, take care of things at home, or get along with other people?: Not difficult at all Total Score: 10 HENRY-Q SV Test - Statements CAD is a disease of the arteries in the heart: False Examples of risk factors for heart disease: True Angina is chest pain or discomfort: I Don't Know The benefits of resistance training include: True Eating more meat and dairy products: I Don't Know Anti-platelet medications such as aspirin are important: True The only effective way to manage stress: I Don't Know An exercise warm-up slowly increases heart rate: True Prepared, processed foods usually have high sodium: I Don't Know Depression is common after a heart attack: I Don't Know The statin medications lower cholesterol: True To control blood pressure, lower the amount of sodium: True If someone gets chest discomfort during walking: False Transfats are partially hydrogenated vegetable oils: I Don't Know Sleep apnea that is not treated increases the risk: I Don't Know To control cholesterol, one should become a vegetarian: I Don't Know Someone knows if he/she is exercising at the right level: I Don't Know Diabetes cannot be prevented with exercise & health eating: False Stress is a large risk for heart attack: True A diet that can help lower blood pressure is rich in: True - Total Score Total Correct Responses: 11 Self-Efficacy Initial Assessment We would like to know how confident you are in doing certain activities. Please select your confidence level for:: Select your confidence level for the following using the scale 1-10 where 1 is not at all confident and 10 is totally confident. Your score is the average of all 6 responses. Fatigue: How confident are you that you can keep the fatigue caused by your disease from interfering with the things you want to do? Select Number: 3 Physical Discomfort or Pain: How confident are you that you can keep the physical discomfort or pain of your disease from interfering with the things you want to do? Select Number: 3 Emotional Distress: How confident are you that you can keep the emotional distress caused by your disease from interfering with the things you want to do? Select Number: 3 Other Symptoms or Health Problems: How confident are you that you can keep other symptoms or health problems from interfering with the things you want to do? Select Number: 3 Different Tasks and Activities: How confident are you that you can do the different tasks and activities needed to manage your health condition so as to reduce your need to see a doctor? Select Number: 10 Medication: How confident are you that you can do things other than just taking medication to reduce how much your illness affects your everyday life? Select Number: 10 Total Score:: 5 Nutrition Survey - Nutrition Survey Instructions Scoring Instructions: Scoring is as follows: Yes = 1 points. No = 0 point. Patient score that is >/=12 is considered to be at potential nutritional risk and could benefit from a referral to a registered dietitian. - Nutrition Survey Initial Have you lost >10 lbs over the past 2 months without trying?: No Are you following a special diet at home for diabetes, low fat, or low salt?: No Are you interested in meeting with a dietitian for help understanding your diet?: No Do you eat less than 3 meals a day?: Yes Do you eat fatty meats (lott, sausage, ribs, etc), fried foods, desserts, large amounts of salad dressings, margarine, butter, or cheese most days?: Yes Do you have food allergies? [Enter types in comment field]: No Do you eat in restaurants more than 3 times a week?: No Do you season food with salt, seasoning salt, or garlic salt?: Yes Do you used canned, boxed, frozen meals, or soups, seasoning packets?: Yes Total Score:: 4
[2020-04-17 15:00] VITALS: BP 120/68; PULSE 91; RESP 124; TEMP 36.2; O2SAT 97; BMI 29.8
[2020-04-17 15:33] VITALS: BP 120/68; BMI 29.8
== END ==
PROVIDERS: Referring Provider Internal Medicine Cardiovascular Disease; Visit Provider Internal Medicine Cardiovascular Disease
DX: Z95.5 Presence of coronary angioplasty implant and graft (principal)

== ENCOUNTER → 2020-08-28 11:02 | Outpatient (CLI) | payer OTHER, SELFPAY ==
[2020-04-17 15:00] VITALS: BMI 29.8
[2020-04-17 15:33] VITALS: BMI 29.8
[2020-08-28 12:08] LABS: AST(SGOT) 19 U/L (15-37); Alanine Aminotransfer ALT/SGPT 30 U/L (16-61); Albumin, Serum 4.3 g/dL (3.2-5.0); Alkaline Phosphatase 110 U/L (45-117); Bilirubin, Direct 0.21 mg/dL (0.00-0.30); Cholesterol 108 mg/dL (200); Globulin 3.4 g/dL (2.2-4.2); High Density Lipoprotein 41 mg/dL; Protein, Total 7.7 g/dL (6.4-8.2); Triglycerides 47 mg/dL; Very Low Density Lipoprotein 9 mg/dL (5-40)
== END ==
PROVIDERS: Referring Provider Specialist; Visit Provider Specialist
DX: E78.5 Hyperlipidemia, unspecified (principal); I25.10 Atherosclerotic heart disease of native coronary artery without angina pectoris; I25.2 Old myocardial infarction
CPT/HCPCS: 36415; 80061; 80076

== ENCOUNTER 2021-04-11 16:09 | Emergency (ER) | payer OTHER, SELFPAY ==
[2020-04-17 15:33] VITALS: BMI 29.8
[2021-04-11 16:10] VITALS: BP 150/92; PULSE 76; RESP 16; TEMP 36.7; O2SAT 100; BMI 28.1
--- NOTE | 2021-04-11 16:22 | EDS_ITS ---
HPI History of Present Illness Chief Complaint: Cough Detail of Chief Complaint: Cough and Covid symptoms x3 days Informant: patient Narrative Narrative: Patient presents to the emergency department with complaint of a cough x3 days. He complains of headache as well as body aches. Patient states that he has had several coworkers tested positive for COVID-19 although he was not in their immediate area. Patient's has been immunized against Covid and she is asymptomatic. Cough is mostly nonproductive. Patient denies any chest pain. Patient does have history of hypertension coronary artery disease with 2 cardiac stents. Prior similar symptoms: No PFSH PFSH Medical History (Updated 04/11/21 @ 17:[address] Ramez Cohen, DO) Arteriosclerosis of coronary artery in patient with history of myocardial infarction Aspiration pneumonia Benign essential HTN Calculus of kidney and ureter Hyperlipidemia STEMI (ST elevation myocardial infarction) Home Medications gabapentin 800 mg PO QHS 08/19/19 [History Last Taken 08/18/19] pramipexole 0.5 mg PO QHS 08/19/19 [History Last Taken 08/18/19] ramelteon 8 mg PO QHS 08/19/19 [History Last Taken 08/19/19] aspirin 81 mg tablet,delayed release 81 mg PO DAILY@0800 #30 tab 09/17/19 [Rx Last Taken Unknown] losartan 25 mg tablet 12.5 mg PO DAILY #45 tab 09/21/20 [Rx Last Taken Unknown] atorvastatin 80 mg tablet 80 mg PO QHS #90 tab 10/05/20 [Rx Last Taken Unknown] metoprolol tartrate 25 mg tablet 25 mg PO BID #180 tab 10/05/20 [Rx Last Taken Unknown] ticagrelor 90 mg tablet 90 mg PO BID #60 tab 10/12/20 [Rx Last Taken Unknown] nitroglycerin 0.4 mg sublingual tablet 0.4 mg SUBLINGUAL Q5M PRN #25 tab 12/24/20 [Rx Last Taken Unknown] Allergy/AdvReac Type Severity Reaction Status Date / Time lisinopril AdvReac Intermediate cough Verified 11/02/20 08:54 Surgical History Stented coronary artery (08/19/19) Social History (Updated 11/02/20 @ 09:25 by Kalpesh Saldana TRANSIT DRIVER, TRANSIT DRIVER-C) Smoking Status: Unknown if ever smoked ROS ROS ED Constitutional Constitutional ED: Reports systems reviewed and no addt'l complaints, except as documented; Denies body ache(s), change in weight or chills Eyes Eyes: Denies acute decrease in peripheral vision, change in vision, double vision or loss of vision ENT ENT ED: Reports none; Denies ear pain, lip swelling, loss taste/smell, neck pain, otalgia or sore throat Cardiovascular Cardiovascular: Reports none; Denies abdominal pain, chest pain with activity, leg edema, lightheadedness, palpitations, rapid heart rate or syncope Respiratory/Chest Respiratory/Chest: Reports none and cough; Denies change in mental status, dry cough, dyspnea, hemoptysis, shortness of breath at rest or shortness of breath with exertion Gastrointestinal Gastrointestinal: Reports none; Denies abdominal pain, change in stool character, diarrhea, hematemesis, hematochezia, melena, rectal bleeding or vomiting Genitourinary Genitourinary ED: Reports none; Denies abdominal discomfort, anuria, dysuria, genital pain or polyuria Musculoskeletal Musculoskeletal: Reports none and myalgias; Denies arthralgias, back pain, diff iculty walking, extremity pain or muscle weakness Integumentary Reports none; Denies abscess or rash Neurologic Neurologic: Reports none; Denies abnormal gait, confusion, focal weakness, frequent falls, headache(s), loss of vision, numbness, paresthesias, radicular pain, vertigo or weakness Psychiatric Psychiatric: Reports systems reviewed and no addt'l complaints, except as documented and none; Denies behavioral changes, confusion, difficulty concentrating, hallucinations, suicidal ideation, tactile hallucinations or visual hallucinations Endocrine Endocrinology: Denies none, cold intolerance, excessive sweating, fatigue or heat intolerance Hematologic/Lymphatic Hematologic/Lymphatic: Reports none; Denies anemia, easy bleeding or easy bruising Allergic/Immunologic Allergic/Immunologic ED: Denies as per HPI, none, lip swelling, mouth swelling, throat swelling, tongue swelling or hives EXAM Physical Exam Const Vital Signs: 04/11/21 16:10 04/11/21 17:05 Temperature 98.0 F Temperature Source Temporal Pulse Rate 76 Respiratory Rate 16 Respiratory Effort Normal Non-Labored Respiratory Depth Normal Respiratory Pattern Normal Blood Pressure 150/92 H Blood Pressure Mean 111 Pulse Ox 100 Oxygen Delivery Method Room Air Positive well nourished and well developed General Appearance ED: well developed and NAD HEENT Reports TM's clear and moist mucous membranes normocephalic and atraumatic; Negative for trauma or tenderness Tympanic Membrane ED: Yes TM's clear Eyes PERRL and EOMs intact bilaterally General Eye ED: Negative for pale conjunctiva or scleral icterus Neck no lymphadenopathy, supple and no JVD General: Negative for tenderness Chest Wall inspection of chest normal and palpation of chest normal Chest: Negative for tenderness Resp normal respiratory effort and clear to auscultation bilaterally Effort and Inspection: Negative for respiratory distress or pain with movement Auscultation: Negative for rhonchi, wheezes or diminished lung sounds Cardio regular rate, regular rhythm, S1 normal heart sound, S2 normal heart sound and no murmurs Peripheral Pulses: pulses 2+ throughout GI normal to inspection, nondistended, normoactive bowel sounds, soft to palpation, non-tender, non-distended and no masses Back/Spine no CVA tenderness and no thoracic nor lumbar tenderness Extremity normal to inspection General Extremety ED: Negative for edema General Extremity: Negative for edema Neuro oriented x3, CN's II-XII intact bilaterally, no sensory deficits noted and gait normal Sensorium / Orientation: awake, alert, oriented to person, oriented to place and oriented to time Motor Exam: strength 5/5 throughout and strength abnormal Psych mental status grossly normal Skin no rashes or lesions noted and no wounds MDM MDM MDM Narrative Medical decision making narrative: We will make a referral to outpatient antibody infusion. Patient advised return if increasing shortness of breath or conditions worsen anyway. He is advised to quarantine for 14 days. Lab Data Attestation: I reviewed the patient's lab results. Discharge Plan Triage Chief Complaint: Cough ED Provider: Ramez Cohen Dx/Rx/DC Orders Clinical Impression: COVID-19 Instructions: COVID-19 and the Flu: What's the Difference?, How COVID-19 Spreads, Symptoms of COVID-19 Infection Prescriptions: No Action pramipexole 0.5 MG tablet 0.5 mg PO QHS RF: 0 gabapentin 800 tablet 800 mg PO QHS RF: 0 ramelteon 8 tablet 8 mg PO QHS RF: 0 aspirin 81 mg tablet,delayed release (DR/EC) 81 mg PO DAILY@0800 Qty: 30 RF: 12 losartan 25 mg tablet 12.5 mg PO DAILY Qty: 45 RF: 3 atorvastatin 80 mg tablet 80 mg PO QHS Qty: 90 RF: 3 metoprolol tartrate 25 mg tablet 25 mg PO BID Qty: 180 RF: 3 ticagrelor 90 mg tablet 90 mg PO BID Qty: 60 RF: 12 nitroglycerin 0.4 mg tablet, sublingual 0.4 mg sublingual Q5M PRN (Reason: Cardiac/Chest Pain) Qty: 25 RF: 3 Other Ambulatory Orders: COVID Outpatient Monoclonal Antibody Referral (Routine) Location: None Selected Ordered By: Dr. Ramez Cohen Primary Care Provider: Care Physician,No Primary Referrals: Jared Oliva MD [STAFF PHYSICIAN] - 1 Week Care Physician,No Primary [Primary Care Provider] -
== END 2021-04-11 17:25 ==
LOC: ED 16:37
PROVIDERS: Emergency Provider Emergency Medicine
DX: U07.1 COVID-19 (principal); I25.10 Atherosclerotic heart disease of native coronary artery without angina pectoris; I25.2 Old myocardial infarction; Z95.5 Presence of coronary angioplasty implant and graft
CPT/HCPCS: 87426; 99282

== ENCOUNTER 2021-04-12 15:54 | Outpatient (CLI) | payer OTHER, SELFPAY ==
[2020-04-17 15:33] VITALS: BMI 29.8
[2021-04-12] MEDS: 0.9% Saline Lock 10 ML Syringe IV (16:17)
[2021-04-12 16:18] VITALS: BP 115/91; PULSE 87; RESP 20; TEMP 37.7; O2SAT 98; BMI 28.0
[2021-04-12 16:55] VITALS: BP 119/83; PULSE 86; RESP 16; TEMP 37.7; O2SAT 96
[2021-04-12 17:51] VITALS: BP 116/80; PULSE 86; RESP 16; TEMP 37.2; O2SAT 97
== END 2021-04-12 17:55 | disposition home or self-care (01) ==
LOC: ICUOUT 15:54 → MS2 15:55
PROVIDERS: Referring Provider Nurse Practitioner Acute Care; Visit Provider Nurse Practitioner Acute Care
DX: U07.1 COVID-19 (principal)
CPT/HCPCS: 96365; J7050; M0243; A4216; Q0244

== ENCOUNTER → 2021-12-21 | Outpatient (CLI) | payer OTHER, SELFPAY ==
[2020-04-17 15:33] VITALS: BMI 29.8
[2021-12-21 15:29] LABS: AST(SGOT) 42 U/L (15-37); Alanine Aminotransfer ALT/SGPT 66 U/L (16-61); Albumin, Serum 3.7 g/dL (3.2-5.0); Alkaline Phosphatase 89 U/L (45-117); Bilirubin, Direct 0.25 mg/dL (0.00-0.30); Cholesterol 117 mg/dL (200); Globulin 3.2 g/dL (2.2-4.2); High Density Lipoprotein 39 mg/dL; Protein, Total 6.9 g/dL (6.4-8.2); Triglycerides 88 mg/dL; Very Low Density Lipoprotein 18 mg/dL (5-40)
== END | disposition home or self-care (01) ==
LOC: LAB 14:31
PROVIDERS: Referring Provider Physician Assistant Medical; Visit Provider Physician Assistant Medical
DX: E78.00 Pure hypercholesterolemia, unspecified (principal); E78.5 Hyperlipidemia, unspecified
CPT/HCPCS: 36415; 80061; 80076

== ENCOUNTER 2022-04-11 15:13 | Emergency (ER) | payer OTHER, SELFPAY ==
[2020-04-17 15:33] VITALS: BMI 29.8
[2022-04-11 15:14] VITALS: BP 167/104; PULSE 60; RESP 16; TEMP 36.6; O2SAT 98; BMI 28.0
--- NOTE | 2022-04-11 15:23 | CT_ITS ---
HISTORY: Abdominal and left groin symptoms started this a.m., history of kidney stones. TECHNIQUE: Helically acquired images were obtained of the abdomen and pelvis without oral or IV contrast. A radiation dose optimization technique was used for this scan. 444 images. COMPARISON: None.. FINDINGS: LOWER CHEST: Lung bases clear. BOWEL: Mild hiatal hernia. Bowel including appendix nondilated. Mild colonic diverticulosis. No focal pericolonic inflammatory change. PERITONEUM: No significant free fluid. LIVER/SPLEEN: Nonenlarged. Calcified splenic granulomas. GALLBLADDER/BILIARY TREE: Small calcified gallstone. KIDNEYS AND URETERS: 2 mm left upper pole calculus. 5 mm left lower pole calculus. Mild left hydronephrosis secondary to a 2 mm distal ureteral calculus. No right nephrolithiasis or hydronephrosis. PANCREAS: No peripancreatic inflammation. ADRENAL GLANDS: 2.4 cm low-attenuation right adrenal nodule. VESSELS: No abdominal aortic aneurysm. Mild atherosclerosis. PELVIC ORGANS: Decompressed urinary bladder. ABDOMINAL WALL: Small fat-containing umbilical and inguinal hernias. BONES: Intact. CT/Abdomen/Pelvis without Cont IMPRESSION: Mild left hydronephrosis secondary to a 2 mm distal ureteral calculus. Left nephrolithiasis. Cholelithiasis. Mild hiatal hernia. Colonic diverticulosis without acute diverticulitis. Small right adrenal adenoma. Electronically Signed: Alla Vasquez MD at 16:36 EDT ,
--- NOTE | 2022-04-11 15:25 | EDS_ITS ---
HPI History of Present Illness Chief Complaint: Abd Pain Informant: patient Onset/Context/Timing Onset: Today Current Severity: Severe Maximum Severity: Severe Narrative Narrative: Patient presents with left flank pain that started around noon today. Feels similar to prior kidney stones. Patient states the pain started in his back and is now along the left groin line. He has had cold sweats and nausea from the pain. He has not yet taken anything for pain. [facility] Medical History Aspiration pneumonia Atherosclerotic heart disease of [place] coronary artery without angina pectoris Calculus of kidney and ureter COVID-19 (04/11/21) Essential hypertension Hyperlipidemia ST elevation myocardial infarction (STEMI) of inferior wall (08/19/19) Home Medications gabapentin 800 mg tablet 800 mg PO QHS 08/19/19 [History Last Taken 04/11/21] pramipexole 0.5 mg tablet 0.5 mg PO QHS 08/19/19 [History Last Taken 04/11/21] aspirin 81 mg tablet,delayed release 81 mg PO DAILY@0800 #30 tabs 09/17/19 [Rx Last Taken 04/12/21] nitroglycerin 0.4 mg sublingual tablet 0.4 mg sublingual Q5M PRN Cardiac/Chest Pain #25 tabs 12/24/20 [Rx Last Taken Unknown] losartan 25 mg tablet 12.5 mg PO DAILY #45 tabs 09/21/21 [Rx Last Taken Unknown] atorvastatin 80 mg tablet 80 mg PO QHS #90 tabs 09/29/21 [Rx Last Taken Unknown] metoprolol tartrate 25 mg tablet 25 mg PO BID #180 tabs 10/18/21 [Rx Last Taken Unknown] doxepin 10 mg capsule 10 mg PO DAILY 12/21/21 [History Last Taken Unknown] mirtazapine 45 mg tablet 45 mg PO DAILY 12/21/21 [History Last Taken Unknown] hydrocodone-acetaminophen 5-325mg 5mg-325mg 1 tab PO Q6H PRN pain 3 days #14 tabs 04/11/22 [Rx Last Taken Unknown] ketorolac 10 mg tablet 10 mg PO Q6H PRN pain 3 days #10 tabs 04/11/22 [Rx Last Taken Unknown] ondansetron 4 mg disintegrating tablet 4 mg PO Q8H PRN nausea and vomiting #10 tabs 04/11/22 [Rx Last Taken Unknown] tamsulosin 0.4 mg capsule (Flomax) 0.4 mg PO DAILY #7 caps 04/11/22 [Rx Last Taken Unknown] Allergy/AdvReac Type Severity Reaction Status Date / Time lisinopril AdvReac Intermediate cough Verified 04/11/22 15:16 Surgical History History of coronary artery stent placement (08/19/19) Social History Smoking Status: Former smoker ROS ROS ED Constitutional Constitutional ED: Reports sweats; Denies chills or fever(s) Eyes Eyes: Denies change in vision or discharge from eye(s) ENT ENT ED: Denies discharge from eye(s), rhinorrhea or sore throat Cardiovascular Cardiovascular: Denies chest pain or palpitations Respiratory/Chest Respiratory/Chest: Denies cough or dyspnea Gastrointestinal Gastrointestinal: Reports abdominal pain and nausea; Denies diarrhea or vomiting Genitourinary Genitourinary ED: Denies difficulty urinating or dysuria Musculoskeletal Musculoskeletal: Reports back pain; Denies extremity pain Integumentary Denies Abrasions or rash Neurologic Neurologic: Denies headache(s) or weakness Allergic/Immunologic Allergic/Immunologic ED: Denies lip swelling or urticaria EXAM Physical Exam Const Vital Signs: 04/11/22 15:14 04/11/22 17:15 Temperature 97.8 F Temperature Source Temporal Pulse Rate 60 Respiratory Rate 16 Blood Pressure 167/104 H Blood Pressure Mean 125 Pulse Ox 98 20 Oxygen Delivery Method Room Air Room Air Positive well nourished and well developed General Appearance ED: well developed HEENT Reports normocephalic and head/scalp atraumatic Eyes PERRL and EOMs intact bilaterally Neck supple Chest Wall inspection of chest normal and palpation of chest normal Resp normal respiratory effort and clear to auscultation bilaterally Cardio regular rate and regular rhythm GI non-tender Palpation: soft Back/Spine General Back: CVA tenderness left Extremity normal to inspection Neuro oriented x3 and no sensory deficits noted Sensorium / Orientation: alert Motor Exam: strength 5/5 throughout Psych mental status grossly normal Skin no rashes or lesions noted MDM MDM MDM Narrative Medical decision making narrative: Patient was given Toradol, morphine, Zofran, IV fluids. This was followed by a dose of Dilaudid for continued pain. Lab work obtained along with CT scan and urinalysis. Lab Data Attestation: I reviewed the patient's lab results. Labs: Laboratory Results - last 24 hr 04/11/22 04/11/22 15:40 15:40 WBC 7.0 RBC 5.41 Hgb 15.7 Hct 44.3 MCV 81.9 MCH 29.0 MCHC 35.4 RDW Std Deviation 37.8 RDW Coeff of [place] 12.9 Plt Count 326 MPV 8.8 Immature Gran % (Auto) 0.400 Neut % (Auto) 68.0 Lymph % (Auto) 20.9 [place] % (Auto) 6.2 Eos % (Auto) 3.6 Baso % (Auto) 0.9 Absolute Neuts (auto) 4.7 Absolute Lymphs (auto) 1.46 Nucleated RBC % 0 Sodium 144 Potassium 3.5 Chloride 111 H Carbon Dioxide 26.0 Anion Gap 7 BUN 9 Creatinine 1.02 Estim Creat Clear Calc 106.37 Est GFR (MDRD) Af Amer 99 Est GFR (MDRD) Non-Af 82 BUN/Creatinine Ratio 8.8 L Glucose 146 H Calcium 9.3 Radiography Diagnostic Testing: Clinical Impression(s) from Imaging Studies Abdomen/Pelvis CT 04/11/22 15:23 IMPRESSION: Mild left hydronephrosis secondary to a 2 mm distal ureteral calculus. Left nephrolithiasis. Cholelithiasis. Mild hiatal hernia. Colonic diverticulosis without acute diverticulitis. Small right adrenal adenoma. Electronically Signed: Alla Vasquez MD at 16:36 EDT , Treatment and Re-Evaluation Narrative: Low repeat evaluation patient still having significant pain. CBC and chemistry studies unremarkable with normal renal function. He has not yet been able to provide a urine sample. CT scan reveals mild left hydronephrosis secondary to a 2 mm distal left ureteral calculus. Test results discussed with patient and at bedside. Patient will be remedicated at this time. I will have oncoming physician check urine and ensure his pain is under control prior to discharge. I anticipate discharge and will have prescriptions at the pharmacy for him. Discharge Plan Triage Chief Complaint: Abd Pain ED Provider: Floridalma Wang Dx/Rx/DC Orders Clinical Impression: Ureterolithiasis Instructions: ED Kidney Stone w/ Colic Prescriptions: New hydrocodone-acetaminophen 5-325 mg tablet 1 tab PO Q6H PRN (Reason: pain) 3 Days Qty: 14 0RF ondansetron 4 mg tablet,disintegrating 4 mg PO Q8H PRN (Reason: nausea and vomiting) Qty: 10 0RF ketorolac 10 mg tablet 10 mg PO Q6H PRN (Reason: pain) 3 Days Qty: 10 0RF tamsulosin [Flomax] 0.4 mg capsule 0.4 mg PO DAILY Qty: 7 0RF No Action mirtazapine 45 mg tablet 45 mg PO DAILY doxepin 10 mg capsule 10 mg PO DAILY pramipexole 0.5 MG tablet 0.5 mg PO QHS gabapentin 800 tablet 800 mg PO QHS aspirin 81 mg tablet,delayed release (DR/EC) 81 mg PO DAILY@0800 Qty: 30 12RF nitroglycerin 0.4 mg tablet, sublingual 0.4 mg sublingual Q5M PRN (Reason: Cardiac/Chest Pain) Qty: 25 3RF losartan 25 mg tablet 12.5 mg PO DAILY Qty: 45 3RF atorvastatin 80 mg tablet 80 mg PO QHS Qty: 90 3RF metoprolol tartrate 25 mg tablet 25 mg PO BID Qty: 180 3RF Primary Care Provider: Fely Bob NP Referrals: Shaquille Atkinson MD [Med Staff - Active Staff] - As Needed Fely Bob NP, MANAGER PROJECT MANAGEMENT-C [Primary Care Provider] - Disposition Disposition: Home, Self Care
[2022-04-11] MEDS: Morphine 4 MG/ML Syringe IV (15:45)
[2022-04-11] MEDS: 0.9% Normal Saline 1,000 ML 250 ML IV (15:45)
[2022-04-11] MEDS: Ondansetron 4 MG/2 ML Vial IV ×2 (15:45→17:57)
[2022-04-11] MEDS: Ketorolac 30 MG/ML Syringe IV (15:45)
[2022-04-11 15:55] LABS: Absolute Lymphocyte Count 1.46 X10^3/uL (0.83-4.51); Absolute Neutrophil Count 4.7 X10^3/uL (2.0-7.7); Basophil# 0.06 X10^3/uL; Basophil% 0.9 % (0-1); Eosinophil# 0.25 X10^3/uL; Eosinophils% 3.6 % (0-5); Hematocrit 44.3 % (40-54); Hemoglobin 15.7 g/dL (13.0-16.5); Lymphocyte # 1.46 X10^3/ul (0.83-4.51); Lymphocyte % 20.9 % (19-41); Mean Corp Hgb Conc 35.4 g/dL (32-36); Mean Corpuscular Volume 81.9 fL (80-94); Mean Platelet Vol. 8.8 fl (6.2-12.0); Monocyte# 0.43 X10^3/uL; Monocyte% 6.2 % (0-10); NRBC Flagged by Analyzer 0 % (0-5); Neutrophil # 4.74 X10^3/uL (2.7-7.7); Platelet Count 326 K/mm3 (150-450); RBC Distribution Width CV 12.9 % (11.6-14.6); RBC Distribution Width SD 37.8 fl (35.1-43.9); Red Blood Count 5.41 M/mm3 (4.6-6.2)
[2022-04-11] MEDS: HYDROmorphone 1 MG/ML Syringe IV ×2 (16:06→17:57)
[2022-04-11 16:18] LABS: Anion Gap 7 (5-15); BUN 9 mg/dL (7-18); BUN/Creat Ratio 8.8 RATIO (10-20); Calcium,Total 9.3 mg/dL (8.5-10.1); Chloride 111 mmol/L (98-107); Creatinine, Serum 1.02 mg/dL (0.70-1.30); EST Glomerular Filtration Rate 82 mL/min (>60); Est Glom Filt Rate - Afr Amer 99 mL/min (>60); Estimated Creatinine Clearance 106.37 ml/min; Glucose 146 mg/dL (74-106); Potassium 3.5 mmol/L (3.5-5.1); Sodium Level 144 mmol/L (136-145)
[2022-04-11] MEDS: Tamsulosin HCl 0.4 MG Capsule PO (17:00)
[2022-04-11] MEDS: HYDROmorphone 0.5 MG/0.5 ML SYRINGE IV (17:00)
[2022-04-11 17:15] VITALS: RESP 20
[2022-04-11 18:16] LABS: Mucous, Urine 0 SEEN /hpf (<or=2+); Squamous Epithelial Cells - UA 0 SEEN /hpf (0-5)
[2022-04-11 18:24] LABS: Color, Urine Amber (Yellow); Glucose, Dipstick Normal (Normal); Ketone-Dipstick 15 mg/dl (Negative); Leukocyte Esterase-Dipstick 25 /ul (Negative); Nitrite-Dipstick Negative (Negative); Occult Blood-Urine 250 /ul (Negative); Protein-Dipstick 30 mg/dl (Negative); Urine Bilirubin Dipstick Negative (Negative); Urine Clarity Sl. Cloudy (Clear); Urine Urobilinogen 4 mg/dl (Normal)
[2022-04-11 18:39] LABS: Red Blood Cells-Urine 50-100 SEEN /hpf (0-5)
[2022-04-11 18:40] LABS: Bacteria 1+ /hpf (None Seen); Calcium Oxalate Crystals Ur RARE /hpf (<or=2+)
[2022-04-11 18:41] LABS: White Blood Cells 0-5 SEEN /hpf (0-5)
[2022-04-11 19:24] VITALS: PULSE 74; RESP 15; O2SAT 99
== END 2022-04-11 19:29 | disposition home or self-care (01) ==
PROVIDERS: Emergency Provider Emergency Medicine; PCP Nurse Practitioner Family; Visit Provider Emergency Medicine
DX: N20.1 Calculus of ureter (principal); E78.5 Hyperlipidemia, unspecified; R11.0 Nausea; I10 Essential (primary) hypertension; I25.10 Atherosclerotic heart disease of native coronary artery without angina pectoris; R10.9 Unspecified abdominal pain; Z79.82 Long term (current) use of aspirin; Z79.899 Other long term (current) drug therapy; Z87.891 Personal history of nicotine dependence
CPT/HCPCS: 74176; 80048; 81001; 85025; 96361; 96374; 96375; 96376; 99283; J7030; A4216; J2405

== ENCOUNTER 2022-04-14 11:24 | Observation (INO) | payer OTHER, SELFPAY ==
[2020-04-17 15:33] VITALS: BMI 29.8
[2022-04-14 11:26] VITALS: BP 142/105; PULSE 70; RESP 17; TEMP 36.5; O2SAT 99; BMI 30.5
[2022-04-14] MEDS: morphine 8 MG/ML Syringe IV (11:47)
[2022-04-14] MEDS: Ondansetron 4 MG/2 ML Vial IV ×2 (11:47→12:37)
[2022-04-14] MEDS: Ketorolac 15 MG/ML Vial IV (11:47)
--- NOTE | 2022-04-14 11:53 | EDS_ITS ---
HPI History of Present Illness Chief Complaint: Flank Pain Detail of Chief Complaint: Acute left flank pain Informant: patient Onset/Context/Timing Onset: Hours Context: Sudden Onset Timing: Continuous and Waxes and wanes Quality: Left flank radiating to the left groin Location: Left flank that is colicky Current Severity: Severe Maximum Severity: Severe Worsened by: Nothing Relieved by: Nothing Associated Symptoms Associated Symptoms: Nausea and urgency Narrative Narrative: Patient is a 52-year-old male who was seen 2 days ago and diagnosed with a left distal 2 mm ureteral calculus. Patient does not have a urologist. Patient denies fever or chills. Patient denies vomiting or diarrhea. Patient denies change in color of his urine, dysuria. Does report urgency. He denies testicular or scrotal swelling. There is no history of trauma. He has not noted a rash. Prior similar symptoms: Yes Recent Illness/Hospitalization: Yes [facility] Medical History Aspiration pneumonia Atherosclerotic heart disease of [place] coronary artery without angina pectoris Calculus of kidney and ureter COVID-19 (04/11/21) Essential hypertension Hyperlipidemia ST elevation myocardial infarction (STEMI) of inferior wall (08/19/19) Home Medications gabapentin 800 mg tablet 800 mg PO QHS 08/19/19 [History Last Taken 04/11/21] pramipexole 0.5 mg tablet 0.5 mg PO QHS 08/19/19 [History Last Taken 04/11/21] aspirin 81 mg tablet,delayed release 81 mg PO DAILY@0800 #30 tabs 09/17/19 [Rx Last Taken 04/12/21] nitroglycerin 0.4 mg sublingual tablet 0.4 mg sublingual Q5M PRN Cardiac/Chest Pain #25 tabs 12/24/20 [Rx Last Taken Unknown] losartan 25 mg tablet 12.5 mg PO DAILY #45 tabs 09/21/21 [Rx Last Taken Unknown] atorvastatin 80 mg tablet 80 mg PO QHS #90 tabs 09/29/21 [Rx Last Taken Unknown] metoprolol tartrate 25 mg tablet 25 mg PO BID #180 tabs 10/18/21 [Rx Last Taken Unknown] doxepin 10 mg capsule 10 mg PO DAILY 12/21/21 [History Last Taken Unknown] mirtazapine 45 mg tablet 45 mg PO DAILY 12/21/21 [History Last Taken Unknown] hydrocodone-acetaminophen 5-325mg 5mg-325mg 1 tab PO Q6H PRN pain 3 days #14 tabs 04/11/22 [Rx Last Taken Unknown] ketorolac 10 mg tablet 10 mg PO Q6H PRN pain 3 days #10 tabs 04/11/22 [Rx Last Taken Unknown] ondansetron 4 mg disintegrating tablet 4 mg PO Q8H PRN nausea and vomiting #10 tabs 04/11/22 [Rx Last Taken Unknown] tamsulosin 0.4 mg capsule (Flomax) 0.4 mg PO DAILY #7 caps 04/11/22 [Rx Last Taken Unknown] Allergy/AdvReac Type Severity Reaction Status Date / Time lisinopril AdvReac Intermediate cough Verified 04/14/22 11:25 Surgical History History of coronary artery stent placement (08/19/19) Social History (Updated 04/14/22 @ 11:[address] Juan Watts MD) household members: spouse Smoking Status: Former smoker substance use type: does not use ROS ROS ED Constitutional Constitutional ED: Denies chills, fever(s), subjective, sweats or weight loss Eyes Eyes: Denies blurry vision, change in vision or diplopia Cardiovascular Cardiovascular: Denies chest pain or palpitations Respiratory/Chest Respiratory/Chest: Denies cough or dyspnea Gastrointestinal Gastrointestinal: Reports abdominal pain and nausea; Denies diarrhea, melena or vomiting Genitourinary Genitourinary ED: Reports urinary frequency; Denies dysuria or hematuria Musculoskeletal Musculoskeletal: Reports back pain; Denies arthralgias, myalgias or neck pain Integumentary Denies abscess, Abrasions or rash Neurologic Neurologic: Denies paresthesias or weakness Hematologic/Lymphatic Hematologic/Lymphatic: Reports systems reviewed and no addt'l complaints, except as documented; Denies anemia, easy bleeding or easy bruising Allergic/Immunologic Allergic/Immunologic ED: Denies mouth swelling, tongue swelling or urticaria EXAM Physical Exam Const Vital Signs: 04/14/22 11:26 04/14/22 12:41 04/14/22 13:13 Temperature 97.7 F L Temperature Source Temporal Pulse Rate 70 89 Respiratory Rate 17 23 H 18 Blood Pressure 142/105 H 144/113 H Blood Pressure Mean 117 123 Pulse Ox 99 98 Oxygen Delivery Method Room Air Room Air Room Air Positive well nourished and well developed; Negative for unkempt General Appearance ED: well developed; Negative for unkempt, cyanotic, diaphoretic, NAD or pallor HEENT Reports moist mucous membranes HEENT Narrative: Head is atraumatic normocephalic. Ears normal. Nares patent. Teeth normal. Eyes PERRL and EOMs intact bilaterally General Eye ED: Negative for pale conjunctiva or scleral icterus Neck no lymphadenopathy, supple and no JVD Chest Wall inspection of chest normal and palpation of chest normal Resp normal respiratory effort and clear to auscultation bilaterally Cardio regular rate, regular rhythm, S1 normal heart sound, S2 normal heart sound and no murmurs GI normal to inspection, nondistended, normoactive bowel sounds, non-tender and non-distended; Negative for hepatosplenomegaly Back/Spine no CVA tenderness Cervical Spine: Negative for cervical spine tenderness Thoracic Spine / Upper Back: Negative for thoracic spinal tenderness Lumbar Spine / Lower Back: Negative for lumbar spinal tenderness Extremity normal to inspection Neuro oriented x3, CN's II-XII intact bilaterally and no sensory deficits noted Sensorium / Orientation: alert Motor Exam: strength 5/5 throughout Psych Psych Narrative: Patient is in obvious distress. Patient is curled up with his buttocks in the ER. Appearance: Negative for unkempt Skin no rashes or lesions noted, no wounds and skin turgor normal General Skin Exam: Negative for jaundice or pallor MDM MDM MDM Narrative Medical decision making narrative: Since patient was seen 2 days ago and had a CAT scan that indicated the etiology of his pain was a 2 mm left UVJ stone and no history of passing the stone will treat him symptomatically. Will obtain UA to rule out infection. He was treated with Zofran, morphine and Toradol IV push. Patient was reassessed at 1230. He is still in significant pain. He had episode of emesis. Additional dose of Zofran was ordered and 1 mg of Dilaudid was ordered. I was informed that 1315 patient is still in position in obvious discomfort. An additional milligram of Dilaudid was ordered. KUB was ordered. Patient does have microscopic hematuria as well as calcium oxalate crystals. If there is no improvement after the second dose of Dilaudid will contact urology for admission. Patient was reassessed at 1353. He is still in discomfort. He is no longer diaphoretic. He states the pain has improved but is still severe. Lab Data Attestation: I reviewed the patient's lab results. Labs: Laboratory Results - last 24 hr 04/14/22 11:45 Urine Color Yellow Urine Clarity Clear Urine pH 5.0 Ur Specific [place] 1.025 Urine Protein 30 H Urine Glucose (UA) Normal Urine Ketones 5 H Urine Occult Blood 250 H Urine Nitrite Negative Urine Bilirubin Negative Urine Urobilinogen 1 H Ur Leukocyte Esterase 25 H Urine RBC 5-10 SEEN Urine WBC 0 SEEN Ur Squamous Epith Cells 0 SEEN Calcium Oxalate Crystal 2+ Urine Bacteria 0 SEEN Urine Mucus 2+ Radiography Chest X-Ray - ED: 1 View and Read by ED Physician (KUB reveals small calcified stone in the area of the left UVJ. Since patient is still in significant pain will contact urology for admission) Diagnostic Testing: Clinical Impression(s) from Imaging Studies KUB X-Ray 04/14/22 13:25 IMPRESSION: 4.8 mm calculus in the lower pole calyx of the left kidney. Electronically Signed: Kelvin Okeefe MD at 13:43 EDT , Discharge Plan Dx/Rx/DC Orders Clinical Impression: Hydronephrosis with urinary obstruction due to ureteral calculus, Nausea & vomiting Disposition Disposition: Acute Care [facility]
[2022-04-14 11:55] LABS: Bacteria 0 SEEN /hpf (None Seen); Squamous Epithelial Cells - UA 0 SEEN /hpf (0-5); White Blood Cells 0 SEEN /hpf (0-5)
[2022-04-14 11:58] LABS: Color, Urine Yellow (Yellow); Glucose, Dipstick Normal (Normal); Ketone-Dipstick 5 mg/dl (Negative); Leukocyte Esterase-Dipstick 25 /ul (Negative); Nitrite-Dipstick Negative (Negative); Occult Blood-Urine 250 /ul (Negative); Protein-Dipstick 30 mg/dl (Negative); Specific Gravity, Urine 1.025 (1.002-1.030); Urine Bilirubin Dipstick Negative (Negative); Urine Clarity Clear (Clear); Urine Urobilinogen 1 mg/dl (Normal)
[2022-04-14] MEDS: 0.9% Normal Saline 1,000 ML 150 ML IV (12:04)
[2022-04-14] MEDS: HYDROmorphone 1 MG/ML Syringe IV ×2 (12:37→13:20)
[2022-04-14 12:41] VITALS: RESP 23
[2022-04-14 13:13] VITALS: BP 144/113; PULSE 89; RESP 18; O2SAT 98
[2022-04-14 13:17] LABS: Calcium Oxalate Crystals Ur 2+ /hpf (<or=2+); Mucous, Urine 2+ /hpf (<or=2+); Red Blood Cells-Urine 5-10 SEEN /hpf (0-5)
--- NOTE | 2022-04-14 13:25 | RAD_ITS ---
STUDY: X-RAY - ABDOMEN/PELVIS REASON FOR EXAM: Male, 52 years old. 2 mm stone left UVJ TECHNIQUE: Single AP view of the abdomen / pelvis. COMPARISON: None. FINDINGS: There is a moderate amount of colonic fecal material. There is a 4.8 mm calculus in the lower pole calyx of the left kidney. The visualized liver, spleen are grossly normal in size and morphology. Normal soft tissue structures. Normal visualized osseous structures. RAD/Abdomen Single View (Portable) IMPRESSION: 4.8 mm calculus in the lower pole calyx of the left kidney. Electronically Signed: Kelvin Okeefe MD at 13:43 EDT ,
--- NOTE | 2022-04-14 14:00 | NURSING ---
MED SURG OBS DENNIS HYDRONEPHROSIS DUE TO LEFT UVJ STONE, NAUSEA, VOMITING
[2022-04-14 14:03] VITALS: BP 144/113; PULSE 89; RESP 18; TEMP 36.5; O2SAT 98
[2022-04-14 15:12] VITALS: BMI 30.5
[2022-04-14] MEDS: 0.9% Normal Saline 1,000 ML 100 ML IV (15:44)
[2022-04-14] MEDS: Cefazolin 1 GM/50 ML BAG IV ×2 (15:50→23:06)
[2022-04-14] MEDS: Morphine 2 MG/ML Syringe IV ×3 (15:53→20:23)
[2022-04-14] MEDS: Ketorolac 30 MG/ML Syringe IV ×2 (16:36→23:06)
[2022-04-14 16:37] LABS: Hematocrit 41.9 % (40-54); Hemoglobin 14.8 g/dL (13.0-16.5); Mean Corp Hgb Conc 35.3 g/dL (32-36); Mean Corpuscular Hgb 28.8 pg (27.0-32.0); Mean Corpuscular Volume 81.7 fL (80-94); Platelet Count 289 K/mm3 (150-450); RBC Distribution Width CV 12.7 % (11.6-14.6); RBC Distribution Width SD 38.3 fl (35.1-43.9); Red Blood Count 5.13 M/mm3 (4.6-6.2); White Blood Count 9.3 K/mm3 (4.4-11.0)
[2022-04-14 16:50] LABS: Anion Gap 8 (5-15); BUN 14 mg/dL (7-18); BUN/Creat Ratio 13.9 RATIO (10-20); Calcium,Total 9.2 mg/dL (8.5-10.1); Chloride 109 mmol/L (98-107); Creatinine, Serum 1.01 mg/dL (0.70-1.30); EST Glomerular Filtration Rate 83 mL/min (>60); Est Glom Filt Rate - Afr Amer 101 mL/min (>60); Estimated Creatinine Clearance 104.58 ml/min; Glucose 117 mg/dL (74-106); Potassium 3.8 mmol/L (3.5-5.1); Sodium Level 142 mmol/L (136-145)
[2022-04-14 19:39] VITALS: BP 110/65; PULSE 68; RESP 18; TEMP 36.6; O2SAT 100
[2022-04-14 23:05] VITALS: PULSE 66
[2022-04-14] MEDS: Metoprolol Tartrate 25 MG Tablet PO (23:05)
[2022-04-14] MEDS: Gabapentin 800 MG Tablet PO (23:06)
[2022-04-14] MEDS: 0.9% Saline Lock 10 ML Syringe IV (23:06)
[2022-04-15] MEDS: Morphine 2 MG/ML Syringe IV (00:50)
[2022-04-15] MEDS: 0.9% Saline Lock 10 ML Syringe IV ×2 (00:51→06:07)
[2022-04-15 01:50] VITALS: PULSE 66; RESP 18; TEMP 36.9; O2SAT 95
[2022-04-15] MEDS: 0.9% Normal Saline 1,000 ML 100 ML IV (01:50)
[2022-04-15] MEDS: Cefazolin 1 GM/50 ML BAG IV (06:07)
[2022-04-15] MEDS: Ketorolac 30 MG/ML Syringe IV (06:07)
[2022-04-15 07:23] LABS: Hematocrit 34.7 % (40-54); Hemoglobin 11.9 g/dL (13.0-16.5); Mean Corp Hgb Conc 34.3 g/dL (32-36); Mean Corpuscular Hgb 28.6 pg (27.0-32.0); Mean Corpuscular Volume 83.4 fL (80-94); Platelet Count 202 K/mm3 (150-450); RBC Distribution Width CV 12.8 % (11.6-14.6); RBC Distribution Width SD 38.6 fl (35.1-43.9); Red Blood Count 4.16 M/mm3 (4.6-6.2); White Blood Count 8.9 K/mm3 (4.4-11.0)
--- NOTE | 2022-04-15 07:31 | PCM.HP.STD ---
HPI - General General Date of Admission: 04/14/22 HPI Narrative ALCIDES SHAH, is a 52 M who presents to the emergency room with severe pain on the left side he has a tiny stone in the distal left ureter probably is already passed the stone he has no severe pain this morning just some mild bother so we will probably discharge him home this morning after observation overnight. [facility] Medical History Aspiration pneumonia Atherosclerotic heart disease of [place] coronary artery without angina pectoris Calculus of kidney and ureter COVID-19 (04/11/21) Essential hypertension Former smoker Hernia Hyperlipidemia Restless legs syndrome (RLS) ST elevation myocardial infarction (STEMI) of inferior wall (08/19/19) Home Medications gabapentin 800 mg tablet 800 mg PO QHS 08/19/19 [History Last Taken 04/13/22] pramipexole 0.5 mg tablet 0.5 mg PO QHS 08/19/19 [History Last Taken 04/13/22] aspirin 81 mg tablet,delayed release 81 mg PO DAILY@0800 #30 tabs 09/17/19 [Rx Last Taken 04/13/22] nitroglycerin 0.4 mg sublingual tablet 0.4 mg sublingual Q5M PRN Cardiac/Chest Pain #25 tabs 12/24/20 [Rx Last Taken Unknown] losartan 25 mg tablet 12.5 mg PO DAILY #45 tabs 09/21/21 [Rx Last Taken 04/13/22] atorvastatin 80 mg tablet 80 mg PO QHS #90 tabs 09/29/21 [Rx Last Taken 04/13/22] metoprolol tartrate 25 mg tablet 25 mg PO BID #180 tabs 10/18/21 [Rx Last Taken 04/13/22] doxepin 10 mg capsule 10 mg PO QHS insomnia 12/21/21 [History Last Taken 04/13/22] hydrocodone-acetaminophen 5-325mg 5mg-325mg 1 tab PO Q6H PRN pain 3 days #14 tabs 04/11/22 [Rx Last Taken 04/13/22] ketorolac 10 mg tablet 10 mg PO Q6H PRN pain 3 days #10 tabs 04/11/22 [Rx Last Taken 04/13/22] ondansetron 4 mg disintegrating tablet 4 mg PO Q8H PRN nausea and vomiting #10 tabs 04/11/22 [Rx Last Taken 04/13/22] tamsulosin 0.4 mg capsule (Flomax) 0.4 mg PO DAILY #7 caps 04/11/22 [Rx Last Taken 04/13/22] citalopram 10 mg tablet 10 mg PO DAILY 04/14/22 [History Last Taken 04/13/22] mirtazapine 30 mg tablet 30 mg PO QHS sleep 04/14/22 [History Last Taken 04/13/22] ropinirole 1 mg tablet 1 mg PO DAILY 04/14/22 [History Last Taken 04/13/22] Allergy/AdvReac Type Severity Reaction Status Date / Time lisinopril AdvReac Intermediate cough Verified 04/14/22 11:25 Surgical History History of coronary artery stent placement (08/19/19) Social History (Updated 04/14/22 @ 11:[address] Juan Watts MD) household members: spouse Smoking Status: Former smoker substance use type: does not use Vital Signs Vital Signs Vital Signs: 04/14/22 11:26 04/14/22 12:41 04/14/22 13:13 Temperature 97.7 F L Temperature Source Temporal Pulse Rate 70 89 Respiratory Rate 17 23 H 18 Respiratory Effort Respiratory Depth Respiratory Pattern Blood Pressure 142/105 H 144/113 H Blood Pressure Mean 117 123 Blood Pressure Source Blood Pressure Position Blood Pressure Location Pulse Ox 99 98 Oxygen Delivery Method Room Air Room Air Room Air 04/14/22 14:03 04/14/22 16:44 04/14/22 19:39 Temperature 97.7 F L 97.9 F Temperature Source Temporal Oral Pulse Rate 89 68 Respiratory Rate 18 18 Respiratory Effort Normal Respiratory Depth Normal Respiratory Pattern Normal Blood Pressure 144/113 H 110/65 Blood Pressure Mean 123 80 Blood Pressure Source Monitor Blood Pressure Position Right Lateral Blood Pressure Location Left Arm Pulse Ox 98 100 Oxygen Delivery Method Room Air Room Air Room Air 04/14/22 23:05 04/15/22 01:50 Temperature 98.5 F Temperature Source Oral Pulse Rate 66 66 Respiratory Rate 18 Respiratory Effort Respiratory Depth Respiratory Pattern Blood Pressure Blood Pressure Mean Blood Pressure Source Monitor Blood Pressure Position Left Lateral Blood Pressure Location Right Arm Pulse Ox 95 Oxygen Delivery Method Room Air Weight Weight: 110.9 kg Body Mass Index (BMI) 30.5 Results Lab / Micro Data Result Diagrams: 04/15/22 06:05 04/14/22 11:45 Labs: Laboratory Results - last 24 hr 04/14/22 11:45: Urine Color Yellow, Urine Clarity Clear, Urine pH 5.0, Ur Specific [place] 1.025, Urine Protein 30 H, Urine Glucose (UA) Normal, Urine Ketones 5 H, Urine Occult Blood 250 H, Urine Nitrite Negative, Urine Bilirubin Negative, Urine Urobilinogen 1 H, Ur Leukocyte Esterase 25 H, Urine RBC 5-10 SEEN, Urine WBC 0 SEEN, Ur Squamous Epith Cells 0 SEEN, Calcium Oxalate Crystal 2+, Urine Bacteria 0 SEEN, Urine Mucus 2+ 04/14/22 11:45: WBC 9.3, RBC 5.13, Hgb 14.8, Hct 41.9, MCV 81.7, MCH 28.8, MCHC 35.3, RDW Std Deviation 38.3, RDW Coeff of Ottoniel 12.7, Plt Count 289, MPV 9.0 04/14/22 11:45: Sodium 142, Potassium 3.8, Chloride 109 H, Carbon Dioxide 25.0, Anion Gap 8, BUN 14, Creatinine 1.01, Estim Creat Clear Calc 104.58, Est GFR (MDRD) Af Amer 101, Est GFR (MDRD) Non-Af 83, BUN/Creatinine Ratio 13.9, Glucose 117 H, Calcium 9.2 04/15/22 06:05: WBC 8.9, RBC 4.16 L, Hgb 11.9 L, Hct 34.7 L, MCV 83.4, MCH 28.6, MCHC 34.3, RDW Std Deviation 38.6, RDW Coeff of [place] 12.8, Plt Count 202, MPV 9.0 Radiology Impression KUB X-Ray 04/14/22 13:25 IMPRESSION: 4.8 mm calculus in the lower pole calyx of the left kidney. Electronically Signed: Kelvin Okeefe MD at 13:43 EDT , Assessment & Plan Assessment/Plan (1) Ureterolithiasis: PLAN: Plan Admitted overnight for observation and management of pain from a small stick kidney stone looks like he has passed a stone we will discharge him home today with pain medicine he can follow-up in my office for checkup.
--- NOTE | 2022-04-15 07:32 | DCINST_ITS ---
Discharge Instructions Diet Discharge Diet: No restrictions Activity Discharge Activity: Return to Normal Activity Follow Up Care Please Follow Up With: Shaquille Atkinson MD When: Call office for follow-up appointment in 2 to 3 weeks Test Results: Test results from this visit will be discussed in further detail at your follow- up appointment, if applicable. Discharge Plan Admission Admit Date/Time: 04/14/22 14:10 Attending Provider: Shaquille Atkinson Primary Care Provider: Fely Bob NP Discharge Orders/Prescriptions Prescriptions: No Action doxepin 10 mg capsule 10 mg PO QHS pramipexole 0.5 MG tablet 0.5 mg PO QHS gabapentin 800 tablet 800 mg PO QHS hydrocodone-acetaminophen 5-325 mg tablet 1 tab PO Q6H PRN (Reason: pain) 3 Days Qty: 14 0RF ondansetron 4 mg tablet,disintegrating 4 mg PO Q8H PRN (Reason: nausea and vomiting) Qty: 10 0RF ketorolac 10 mg tablet 10 mg PO Q6H PRN (Reason: pain) 3 Days Qty: 10 0RF tamsulosin [Flomax] 0.4 mg capsule 0.4 mg PO DAILY Qty: 7 0RF ropinirole 1 mg tablet 1 mg PO DAILY Label Comments: take 1 tablet by mouth at bedtime citalopram 10 mg tablet 10 mg PO DAILY Label Comments: take 1 tablet by mouth once daily mirtazapine 30 mg tablet 30 mg PO QHS Label Comments: take 1 tablet by mouth at bedtime aspirin 81 mg tablet,delayed release (DR/EC) 81 mg PO DAILY@0800 Qty: 30 12RF nitroglycerin 0.4 mg tablet, sublingual 0.4 mg sublingual Q5M PRN (Reason: Cardiac/Chest Pain) Qty: 25 3RF losartan 25 mg tablet 12.5 mg PO DAILY Qty: 45 3RF atorvastatin 80 mg tablet 80 mg PO QHS Qty: 90 3RF metoprolol tartrate 25 mg tablet 25 mg PO BID Qty: 180 3RF Referrals / Follow Up: Fely Bob NP, PASTRY SUPERVISOR-C [Primary Care Provider] -
[2022-04-15 07:48] LABS: Anion Gap 4 (5-15); BUN 17 mg/dL (7-18); Chloride 110 mmol/L (98-107); Creatinine, Serum 1.13 mg/dL (0.70-1.30); EST Glomerular Filtration Rate 73 mL/min (>60); Est Glom Filt Rate - Afr Amer 88 mL/min (>60); Estimated Creatinine Clearance 93.47 ml/min; Glucose 87 mg/dL (74-106); Potassium 3.5 mmol/L (3.5-5.1); Sodium Level 142 mmol/L (136-145)
[2022-04-15 07:55] VITALS: BP 110/50; PULSE 56; RESP 16; TEMP 37; O2SAT 94
[2022-04-15 10:19] VITALS: BP 118/65; PULSE 65; RESP 16; TEMP 36.6; O2SAT 95
== END 2022-04-15 10:25 | disposition home or self-care (01) ==
LOC: ED 13:35 → MS3 14:15
PROVIDERS: Admitting Provider Urology; Emergency Provider Emergency Medicine; PCP Nurse Practitioner Family; Visit Provider Urology
DX: N13.2 Hydronephrosis with renal and ureteral calculous obstruction (principal); E78.5 Hyperlipidemia, unspecified; Z87.891 Personal history of nicotine dependence; Z86.16 Personal history of COVID-19; R31.29 Other microscopic hematuria; I10 Essential (primary) hypertension; I25.10 Atherosclerotic heart disease of native coronary artery without angina pectoris; Z79.82 Long term (current) use of aspirin; Z79.899 Other long term (current) drug therapy
CPT/HCPCS: 36415; 74018; 80048; 81001; 85027; 96361; 96365; 96366; 96375; 96376; 99218; 99284; J7030; A4216; G0378; J2405

== ENCOUNTER 2022-12-31 16:13 | Observation (INO) | payer BC, SELFPAY ==
[2020-04-17 15:33] VITALS: BMI 29.8
[2022-12-31 16:14] VITALS: BP 142/92; PULSE 76; RESP 18; TEMP 35.8; O2SAT 100; BMI 28.5
--- NOTE | 2022-12-31 16:36 | CT_ITS ---
STUDY: CT ABDOMEN AND PELVIS WITHOUT CONTRAST REASON FOR EXAM: Male, 52 years old. Pain RADIATION DOSAGE (If Supplied By Facility): CTDIvol = ( 12.21 ) mGy, DLP = ( 646.71 ) mGycm TECHNIQUE: Transaxial images were obtained from the dome of the diaphragm to the symphysis pubis without oral contrast, and without intravenous contrast. Sagittal and coronal images were reconstructed. Individualized dose optimization techniques were used for this CT. COMPARISON: 04/11/2022. FINDINGS: The visualized lung bases are unremarkable. The visualized portions of the heart are within normal Stable 2.6 cm cyst in the upper pole of the right kidney. Stable 2.3 cm cyst of the mid right kidney. Mild hydronephrosis of the left kidney and mild proximal hydroureter related to a 7 mm proximal to mid left ureteral stone seen on coronal image 67. Additional tiny nonobstructing stones in the left mid kidney. Normal liver. There is a solitary gallstone. There are multiple benign calcified granulomata of the spleen. Normal pancreas. Normal bilateral adrenal glands. Normal visualized stomach. Normal small intestine. Normal colon. The appendix is visualized and appears normal. There is diffuse atherosclerotic calcification of the abdominal aorta, without a demonstrated aneurysm. Normal inferior vena cava. Normal retroperitoneum. Nondistended urinary bladder. Stable bilateral small fat-containing inguinal hernias worse on the left. Normal osseous structures. CT/Abdomen/Pelvis without Cont IMPRESSION: Obstruction of the left kidney and collecting system from a 7 mm proximal to mid left ureteral stone. Additional small nonobstructing stones of the left kidney. Cholelithiasis. Electronically Signed: Munir Lund MD at 17:53 EDT ,
--- NOTE | 2022-12-31 16:39 | EX.ED.DYSGE1 ---
HPI <ZARI Staples - Last Filed: 12/31/22 19:46> History of Present Illness Chief Complaint: Flank Pain Narrative Narrative: Patient presenting today with left-sided sharp and constant flank pain that radiates to his left groin that he has had for the past 4 hours. He reports nausea and multiple episodes of vomiting. He has a history of kidney stones and thinks that this feels similar. He denies any fever, chills, dysuria, hematuria, increased urinary frequency, hematemesis, and diarrhea. PMH includes coronary artery disease with stent placement. PFSH <ZARI Staples - Last Filed: 12/31/22 19:46> PFSH Medical History Aspiration pneumonia Atherosclerotic heart disease of [place] coronary artery without angina pectoris Calculus of kidney and ureter COVID-19 (04/11/21) Essential hypertension Former smoker Hernia Hyperlipidemia Restless legs syndrome (RLS) ST elevation myocardial infarction (STEMI) of inferior wall (08/19/19) Home Medications gabapentin 800 mg tablet 800 mg PO QHS 08/19/19 [History Last Taken 04/13/22] pramipexole 0.5 mg tablet 0.5 mg PO QHS 08/19/19 [History Last Taken 04/13/22] aspirin 81 mg tablet,delayed release 81 mg PO DAILY@0800 #30 tabs 09/17/19 [Rx Last Taken 04/13/22] nitroglycerin 0.4 mg sublingual tablet 0.4 mg sublingual Q5M PRN Cardiac/Chest Pain #25 tabs 12/24/20 [Rx Last Taken Unknown] doxepin 10 mg capsule 10 mg PO QHS insomnia 12/21/21 [History Last Taken 04/13/22] hydrocodone-acetaminophen 5-325mg 5mg-325mg 1 tab PO Q6H PRN pain 3 days #14 tabs 04/11/22 [Rx Last Taken 04/13/22] ketorolac 10 mg tablet 10 mg PO Q6H PRN pain 3 days #10 tabs 04/11/22 [Rx Last Taken 04/13/22] ondansetron 4 mg disintegrating tablet 4 mg PO Q8H PRN nausea and vomiting #10 tabs 04/11/22 [Rx Last Taken 04/13/22] tamsulosin 0.4 mg capsule (Flomax) 0.4 mg PO DAILY #7 caps 04/11/22 [Rx Last Taken 04/13/22] citalopram 10 mg tablet 10 mg PO DAILY 04/14/22 [History Last Taken 04/13/22] mirtazapine 30 mg tablet 30 mg PO QHS sleep 04/14/22 [History Last Taken 04/13/22] ropinirole 1 mg tablet 1 mg PO DAILY 04/14/22 [History Last Taken 04/13/22] oxycodone-acetaminophen 5 mg-325 mg tablet 1 tab PO Q6H PRN pain 7 days #10 tabs 04/15/22 [Rx Last Taken Unknown] losartan 25 mg tablet 12.5 mg PO DAILY #45 tabs 10/03/22 [Rx Last Taken Unknown] atorvastatin 80 mg tablet 80 mg PO QHS #90 tabs 10/12/22 [Rx Last Taken Unknown] metoprolol tartrate 25 mg tablet 25 mg PO BID #180 tabs 10/17/22 [Rx Last Taken Unknown] Allergy/AdvReac Type Severity Reaction Status Date / Time lisinopril AdvReac Intermediate cough Verified 12/31/22 16:14 Surgical History History of coronary artery stent placement (08/19/19) Social History household members: spouse Smoking Status: Current some day smoker tobacco type: smokeless tobacco substance use type: does not use ROS <ZARI Staples - Last Filed: 12/31/22 19:46> ROS ED Constitutional Constitutional ED: Denies chills, fever(s) or sweats Cardiovascular Cardiovascular: Denies chest pain or palpitations Respiratory/Chest Respiratory/Chest: Denies cough or dyspnea Gastrointestinal Gastrointestinal: Reports nausea and vomiting; Denies abdominal pain or diarrhea Genitourinary Genitourinary ED: Denies dysuria, hematuria or urinary urgency Musculoskeletal Musculoskeletal: Reports back pain; Denies arthralgias, myalgias or neck pain Integumentary Denies abscess, Abrasions or rash Neurologic Neurologic: Denies weakness EXAM <ZARI Staples - Last Filed: 12/31/22 19:46> Physical Exam Const Vital Signs: 12/31/22 16:14 12/31/22 16:53 12/31/22 17:49 Temperature 96.4 F L Temperature Source Temporal Pulse Rate 76 Respiratory Rate 18 16 Respiratory Effort Normal Respiratory Pattern Normal Blood Pressure 142/92 H 138/88 H Blood Pressure Mean 108 104 Pulse Ox 100 Oxygen Delivery Method Room Air Positive well nourished, well developed and no apparent distress General Appearance ED: well developed HEENT Reports normocephalic and head/scalp atraumatic Mouth ED: Yes moist mucous membranes normal Eyes PERRL and EOMs intact bilaterally Neck full ROM and supple Chest Wall inspection of chest normal Resp normal respiratory effort and clear to auscultation bilaterally Cardio regular rate and regular rhythm GI soft to palpation, non-tender, non-distended and no masses Back/Spine normal ROM and normal to inspection General Back: CVA tenderness left Extremity normal to inspection and full ROM Neuro oriented x3, CN's II-XII intact bilaterally, moves all extremities, no focal motor deficits and no sensory deficits noted Sensorium / Orientation: awake and alert Psych mental status grossly normal and thought process normal Skin no rashes or lesions noted and no wounds <Dr. Malvin Pyle DO - Last Filed: 12/31/22 19:52> Physical Exam Const Vital Signs: 12/31/22 16:14 12/31/22 16:53 12/31/22 17:49 Temperature 96.4 F L Temperature Source Temporal Pulse Rate 76 Respiratory Rate 18 16 Respiratory Effort Normal Respiratory Pattern Normal Blood Pressure 142/92 H 138/88 H Blood Pressure Mean 108 104 Pulse Ox 100 Oxygen Delivery Method Room Air MDM <ZARI Staples - Last Filed: 12/31/22 19:46> [facility] Narrative Medical decision making narrative: Patient presenting with left-sided flank pain that he has had for the past 4 hours. He appears to be very uncomfortable and in a lot of pain. He is currently nauseous and vomiting. He will be given Zofran, morphine, fluids. Labs to be obtained to rule out leukocytosis, anemia, electrolyte abnormality, assess kidney function, and a urine will be obtained to rule out UTI. Slight leukocytosis at 11.7, UA shows [address] scan of the abdomen and pelvis will be obtained to rule out kidney stone, diverticulitis, appendicitis, SBO, and other abdominal etiology. CT scan does show a 7 mm stone to the left proximal to mid ureter and hydronephrosis. On reexamination, he is still vomiting and in a lot of pain. I have given him additional morphine and Toradol. I will cover him with Rocephin. On reexamination, he is still in pain, I have given him Dilaudid. I spoke to Dr. Atkinson and he will be admitted for pain control and to have a stent placed tomorrow. Patient also had to be admitted in March 2022 due to a 2 mm stone. Patient is comfortable with admission and will be admitted in stable condition. Attending note: Patient seen and evaluated with principle industrial hygienist. I perform my own [id number] evaluation. I agree with the plan of work-up. Worsening left flank pain rating to groin 4 hours prior to arrival nausea and vomiting. History of multiple kidney stones. No fevers. Exam uncomfortable and unable legs still. No CVA tenderness no rash. Work-up 7 mm proximal to mid ureteral stone hydronephrosis. Labs White count 11.7 creatinine 0.99 urine turbid, hematuria is 25 leukocytes. Urine culture sent. She covered Rocephin. Required multiple doses of pain medicines. Reviewing records admitted this past March for 2 mm stone for pain control with spontaneously passed and seen by Dr. Atkinson. We discussed with him over the phone, he reviewed the imagings, he we will admit the patient under service for planned intervention tomorrow. Lab Data Attestation: I reviewed the patient's lab results. Lab results narrative: WBC 11.7, BMP unremarkable, UA is turbid, elevated leukocytes Labs: Laboratory Results - last 24 hr 12/31/22 12/31/22 12/31/22 16:47 16:47 18:10 WBC 11.7 H RBC 5.54 Hgb 15.9 Hct 44.0 MCV 79.4 L MCH 28.7 MCHC 36.1 H RDW Std Deviation 35.6 RDW Coeff of Ottoniel 12.5 Plt Count 363 MPV 8.8 Immature Gran % (Auto) 0.300 Neut % (Auto) 87.1 H Lymph % (Auto) 8.0 L [place] % (Auto) 3.8 Eos % (Auto) 0.3 Baso % (Auto) 0.5 Absolute Neuts (auto) 10.2 H Absolute Lymphs (auto) 0.94 Nucleated RBC % 0 Sodium 140 Potassium 3.9 Chloride 108 H Carbon Dioxide 22.0 Anion Gap 10 BUN 17 Creatinine 0.99 Estim Creat Clear Calc 106.69 Est GFR (MDRD) Af Amer 103 Est GFR (MDRD) Non-Af 85 BUN/Creatinine Ratio 17.2 Glucose 152 H Calcium 9.6 Urine Color Brown Urine Clarity Turbid Urine pH 6.5 Ur Specific [place] 1.025 Urine Protein 100 H Urine Glucose (UA) Normal Urine Ketones 15 H Urine Occult Blood 250 H Urine Nitrite Negative Urine Bilirubin 1 H Urine Urobilinogen 1 H Ur Leukocyte Esterase 25 H Urine RBC > 100 SEEN Urine WBC 0-5 SEEN Ur Squamous Epith Cells 0 SEEN Urine Bacteria 0 SEEN Urine Mucus 0 SEEN Urine Yeast 1+ Radiography Diagnostic Testing: Clinical Impression(s) from Imaging Studies Abdomen/Pelvis CT 12/31/22 16:36 IMPRESSION: Obstruction of the left kidney and collecting system from a 7 mm proximal to mid left ureteral stone. Additional small nonobstructing stones of the left kidney. Cholelithiasis. Electronically Signed: Munir Lund MD at 17:53 EDT , CT also reviewed and interpreted by attending ED physician, in agreement with radiology. <Dr. Malvin Pyle, DO - Last Filed: 12/31/22 19:52> [facility] Narrative Medical decision making narrative: Patient presenting with left-sided flank pain that he has had for the past 4 hours. He appears to be very uncomfortable and in a lot of pain. He is currently nauseous and vomiting. He will be given Zofran, morphine, fluids. Labs to be obtained to rule out leukocytosis, anemia, electrolyte abnormality, assess kidney function, and a urine will be obtained to rule out UTI. CT scan of the abdomen and pelvis will be obtained to rule out kidney stone, diverticulitis, appendicitis, SBO, and other abdominal etiology. Attending note: Patient seen and evaluated with principle industrial hygienist. I perform my own [id number] evaluation. I agree with the plan of work-up. Worsening left flank pain rating to groin 4 hours prior to arrival nausea and vomiting. History of multiple kidney stones. No fevers. Exam uncomfortable and unable legs still. No CVA tenderness no rash. Work-up 7 mm proximal to mid ureteral stone hydronephrosis. Labs White count 11.7 creatinine 0.99 urine turbid, hematuria is 25 leukocytes. Urine culture sent. She covered Rocephin. Required multiple doses of pain medicines. Reviewing records admitted this past March for 2 mm stone for pain control with spontaneously passed and seen by Dr. Atkinson. We discussed with him over the phone, he reviewed the imagings, he we will admit the patient under service for planned intervention tomorrow. Lab Data Labs: Laboratory Results - last 24 hr 12/31/22 12/31/22 12/31/22 16:47 16:47 18:10 WBC 11.7 H RBC 5.54 Hgb 15.9 Hct 44.0 MCV 79.4 L MCH 28.7 MCHC 36.1 H RDW Std Deviation 35.6 RDW Coeff of [place]toniel 12.5 Plt Count 363 MPV 8.8 Immature Gran % (Auto) 0.300 Neut % (Auto) 87.1 H Lymph % (Auto) 8.0 L [place] % (Auto) 3.8 Eos % (Auto) 0.3 Baso % (Auto) 0.5 Absolute Neuts (auto) 10.2 H Absolute Lymphs (auto) 0.94 Nucleated RBC % 0 Sodium 140 Potassium 3.9 Chloride 108 H Carbon Dioxide 22.0 Anion Gap 10 BUN 17 Creatinine 0.99 Estim Creat Clear Calc 106.69 Est GFR (MDRD) Af Amer 103 Est GFR (MDRD) Non-Af 85 BUN/Creatinine Ratio 17.2 Glucose 152 H Calcium 9.6 Urine Color Brown Urine Clarity Turbid Urine pH 6.5 Ur Specific [place] 1.025 Urine Protein 100 H Urine Glucose (UA) Normal Urine Ketones 15 H Urine Occult Blood 250 H Urine Nitrite Negative Urine Bilirubin 1 H Urine Urobilinogen 1 H Ur Leukocyte Esterase 25 H Urine RBC > 100 SEEN Urine WBC 0-5 SEEN Ur Squamous Epith Cells 0 SEEN Urine Bacteria 0 SEEN Urine Mucus 0 SEEN Urine Yeast 1+ Radiography Diagnostic Testing: Clinical Impression(s) from Imaging Studies Abdomen/Pelvis CT 12/31/22 16:36 IMPRESSION: Obstruction of the left kidney and collecting system from a 7 mm proximal to mid left ureteral stone. Additional small nonobstructing stones of the left kidney. Cholelithiasis. Electronically Signed: Munir Lund MD at 17:53 EDT , Discharge Plan Dx/Rx/DC Orders Clinical Impression: Nausea & vomiting, Kidney stone on left side Disposition Disposition: Acute Care Hospital [facility] Discharge Date/Time: 12/31/22 19:28
[2022-12-31] MEDS: Morphine 4 MG/ML Syringe IV ×2 (16:56→17:41)
[2022-12-31] MEDS: Ondansetron 4 MG/2 ML Vial IV (16:56)
[2022-12-31] MEDS: 0.9% Normal Saline 1,000 ML 1000 ML IV (16:58)
[2022-12-31 17:02] LABS: Absolute Lymphocyte Count 0.94 X10^3/uL (0.83-4.51); Absolute Neutrophil Count 10.2 X10^3/uL (2.0-7.7); Basophil# 0.06 X10^3/uL; Basophil% 0.5 % (0-1); Eosinophil# 0.03 X10^3/uL; Eosinophils% 0.3 % (0-5); Hemoglobin 15.9 g/dL (13.0-16.5); Lymphocyte # 0.94 X10^3/ul (0.83-4.51); Mean Corp Hgb Conc 36.1 g/dL (32-36); Mean Corpuscular Hgb 28.7 pg (27.0-32.0); Mean Corpuscular Volume 79.4 fL (80-94); Mean Platelet Vol. 8.8 fl (6.2-12.0); Monocyte# 0.44 X10^3/uL; Monocyte% 3.8 % (0-10); NRBC Flagged by Analyzer 0 % (0-5); Neutrophil % 87.1 % (47-70); Platelet Count 363 K/mm3 (150-450); RBC Distribution Width CV 12.5 % (11.6-14.6); RBC Distribution Width SD 35.6 fl (35.1-43.9); Red Blood Count 5.54 M/mm3 (4.6-6.2); White Blood Count 11.7 K/mm3 (4.4-11.0)
[2022-12-31 17:15] LABS: Anion Gap 10 (5-15); BUN 17 mg/dL (7-18); BUN/Creat Ratio 17.2 RATIO (10-20); Calcium,Total 9.6 mg/dL (8.5-10.1); Chloride 108 mmol/L (98-107); Creatinine, Serum 0.99 mg/dL (0.70-1.30); EST Glomerular Filtration Rate 85 mL/min (>60); Est Glom Filt Rate - Afr Amer 103 mL/min (>60); Estimated Creatinine Clearance 106.69 ml/min; Glucose 152 mg/dL (74-106); Potassium 3.9 mmol/L (3.5-5.1); Sodium Level 140 mmol/L (136-145)
[2022-12-31] MEDS: Ketorolac 15 MG/ML Vial IV ×2 (17:41→22:21)
[2022-12-31 17:49] VITALS: BP 138/88; RESP 16
[2022-12-31 18:17] LABS: Bacteria 0 SEEN /hpf (None Seen); Mucous, Urine 0 SEEN /hpf (<or=2+); Squamous Epithelial Cells - UA 0 SEEN /hpf (0-5)
[2022-12-31 18:19] LABS: Color, Urine Brown (Yellow); Glucose, Dipstick Normal (Normal); Ketone-Dipstick 15 mg/dl (Negative); Leukocyte Esterase-Dipstick 25 /ul (Negative); Nitrite-Dipstick Negative (Negative); Occult Blood-Urine 250 /ul (Negative); Protein-Dipstick 100 mg/dl (Negative); Specific Gravity, Urine 1.025 (1.002-1.030); Urine Clarity Turbid (Clear); Urine Urobilinogen 1 mg/dl (Normal); Urine pH 6.5 (5.0 - 8.0)
[2022-12-31 18:21] LABS: Urine Bilirubin Dipstick 1 mg/dL (Negative)
[2022-12-31 18:27] LABS: White Blood Cells 0-5 SEEN /hpf (0-5)
[2022-12-31 18:28] LABS: Red Blood Cells-Urine > 100 SEEN /hpf (0-5); Yeast-Urine 1+ /hpf (None Seen)
[2022-12-31] MEDS: HYDROmorphone 0.5 MG/0.5 ML SYRINGE IV (18:48)
[2022-12-31 19:00] VITALS: BP 138/88; PULSE 76; RESP 16; TEMP 35.8; O2SAT 100
--- NOTE | 2022-12-31 19:01 | NURSING ---
305 DENNIS KIDNEY STONE
[2022-12-31 19:35] VITALS: BMI 27.4
[2022-12-31] MEDS: Ceftriaxone 1 GM/50 ML BAG IV (19:48)
[2022-12-31 19:52] VITALS: BP 144/80; PULSE 56; RESP 20; TEMP 36.3; O2SAT 100
[2022-12-31 20:04] VITALS: BMI 27.4
[2022-12-31] MEDS: Morphine 2 MG/ML Syringe IV (21:25)
[2022-12-31 21:38] VITALS: PULSE 60
[2022-12-31] MEDS: Mirtazapine 30 MG Tablet PO (21:38)
[2022-12-31] MEDS: Metoprolol Tartrate 25 MG Tablet PO (21:38)
[2022-12-31] MEDS: 0.9% Normal Saline 1,000 ML 100 ML IV (21:38)
[2022-12-31] MEDS: Doxepin Hydrochloride 10 MG Capsule PO (21:38)
[2022-12-31] MEDS: Gabapentin 800 MG Tablet PO (21:39)
[2022-12-31] MEDS: Atorvastatin Calcium 80 MG Tablet PO (21:39)
[2022-12-31] MEDS: 0.9% Saline Lock 10 ML Syringe IV (22:21)
[2023-01-01] VITALS (9 sets, daily range): BP systolic 123–157; BP diastolic 79–95; PULSE 51–63; RESP 15–16; TEMP 36.6–36.8; O2SAT 98–100
[2023-01-01] MEDS: Ketorolac 15 MG/ML Vial IV (05:54)
[2023-01-01] MEDS: 0.9% Saline Lock 10 ML Syringe IV (05:54)
[2023-01-01] MEDS: 0.9% Normal Saline 1,000 ML 100 ML IV (05:55)
--- NOTE | 2023-01-01 05:55 | EKG12_ITS ---
Test Reason : PRE-OP Blood Pressure : / mmHG Vent. Rate : 053 BPM Atrial Rate : 053 BPM P-R Int : 180 ms QRS Dur : 096 ms QT Int : 428 ms P-R-T Axes : 048 006 005 degrees QTc Int : 401 ms Sinus bradycardia Inferior infarct (cited on or before 21-AUG-2019) Abnormal ECG When compared with ECG of 21-AUG-2019 05:00, No significant change was found Confirmed by RONAK GREY, MASHA ([id number]), primer expeditor and drier SRI GUZMAN ([id number]) on 01/03/2023 10:02:24 AM Referred By: DENNIS Confirmed By:MASHA SIMONS MD
[2023-01-01 06:55] LABS: Absolute Lymphocyte Count 1.35 X10^3/uL (0.83-4.51); Basophil# 0.04 X10^3/uL; Basophil% 0.4 % (0-1); Eosinophil# 0.02 X10^3/uL; Eosinophils% 0.2 % (0-5); Hematocrit 40.1 % (40-54); Hemoglobin 13.6 g/dL (13.0-16.5); Lymphocyte # 1.35 X10^3/ul (0.83-4.51); Lymphocyte % 14.4 % (19-41); Mean Corp Hgb Conc 33.9 g/dL (32-36); Mean Corpuscular Hgb 28.4 pg (27.0-32.0); Mean Corpuscular Volume 83.7 fL (80-94); Mean Platelet Vol. 9.2 fl (6.2-12.0); Monocyte# 0.88 X10^3/uL; Monocyte% 9.4 % (0-10); NRBC Flagged by Analyzer 0 % (0-5); Neutrophil # 7.03 X10^3/uL (2.7-7.7); Neutrophil % 75.1 % (47-70); Platelet Count 281 K/mm3 (150-450); RBC Distribution Width CV 12.7 % (11.6-14.6); RBC Distribution Width SD 38.6 fl (35.1-43.9); Red Blood Count 4.79 M/mm3 (4.6-6.2); White Blood Count 9.4 K/mm3 (4.4-11.0)
[2023-01-01 07:18] LABS: Anion Gap 6 (5-15); BUN 17 mg/dL (7-18); BUN/Creat Ratio 13.3 RATIO (10-20); Calcium,Total 8.7 mg/dL (8.5-10.1); Chloride 111 mmol/L (98-107); Creatinine, Serum 1.28 mg/dL (0.70-1.30); EST Glomerular Filtration Rate 63 mL/min (>60); Est Glom Filt Rate - Afr Amer 76 mL/min (>60); Estimated Creatinine Clearance 82.52 ml/min; Glucose 97 mg/dL (74-106); Potassium 3.7 mmol/L (3.5-5.1); Sodium Level 142 mmol/L (136-145)
--- NOTE | 2023-01-01 07:57 | HP.PCM_ITS ---
HPI - General General Date of Admission: 12/31/22 HPI Narrative ALCIDES SHAH, is a 52 M who presents from the emergency room with a 7 mm stone in the mid left ureter severe intractable pain emergency room asked me to admit the patient for further care plan to place a stent today and discharge the patient antibiotics. PFSH Medical History Aspiration pneumonia Atherosclerotic heart disease of [place] coronary artery without angina pectoris Calculus of kidney and ureter COVID-19 (04/11/21) Essential hypertension Former smoker Hernia Hyperlipidemia Insomnia Restless legs syndrome (RLS) Sleep apnea ST elevation myocardial infarction (STEMI) of inferior wall (08/19/19) Tobacco chew use Home Medications gabapentin 800 mg tablet 800 mg PO QHS restless legs 08/19/19 [History Last Taken 12/30/22] aspirin 81 mg tablet,delayed release 81 mg PO DAILY@0800 #30 tabs 09/17/19 [Rx Last Taken 12/31/22 11:00] nitroglycerin 0.4 mg sublingual tablet 0.4 mg sublingual Q5M PRN Cardiac/Chest Pain #25 tabs 12/24/20 [Rx Last Taken Unknown] doxepin 10 mg capsule 10 mg PO QHS insomnia 12/21/21 [History Last Taken 12/30/22] citalopram 10 mg tablet 10 mg PO DAILY mood 04/14/22 [History Last Taken 12/31/22 11:00] mirtazapine 30 mg tablet 30 mg PO QHS sleep 04/14/22 [History Last Taken 12/30/22] ropinirole 1 mg tablet 1 mg PO QHS RLS 04/14/22 [History Last Taken 12/30/22] atorvastatin 80 mg tablet 80 mg PO QHS cholesterol 12/31/22 [History Last Taken 12/30/22] losartan 25 mg tablet 12.5 mg PO DAILY BP 12/31/22 [History Last Taken 12/31/22 11:00] metoprolol tartrate 25 mg tablet 25 mg PO BID BP 12/31/22 [History Last Taken 12/31/22 11:00] Allergy/AdvReac Type Severity Reaction Status Date / Time lisinopril AdvReac Intermediate cough Verified 12/31/22 19:57 Surgical History History of coronary artery stent placement (08/19/19) Social History household members: spouse Smoking Status: Current some day smoker tobacco type: smokeless tobacco substance use type: does not use Vital Signs Vital Signs Vital Signs: 12/31/22 16:14 12/31/22 16:53 12/31/22 17:49 Temperature 96.4 F L Temperature Source Temporal Pulse Rate 76 Pulse Strength Respiratory Rate 18 16 Respiratory Effort Normal Respiratory Pattern Normal Blood Pressure 142/92 H 138/88 H Blood Pressure Mean 108 104 Blood Pressure Source Blood Pressure Position Blood Pressure Location Pulse Ox 100 Oxygen Delivery Method Room Air 12/31/22 19:00 12/31/22 19:52 12/31/22 21:38 Temperature 96.4 F L 97.4 F L Temperature Source Temporal Oral Pulse Rate 76 56 L 60 Pulse Strength Respiratory Rate 16 20 H Respiratory Effort Respiratory Pattern Blood Pressure 138/88 H 144/80 H Blood Pressure Mean 104 101 Blood Pressure Source Monitor Blood Pressure Position Left Lateral Blood Pressure Location Right Arm Pulse Ox 100 100 Oxygen Delivery Method Room Air Room Air 12/31/22 22:00 01/01/23 06:00 Temperature 98.0 F Temperature Source Oral Pulse Rate 54 L Pulse Strength Normal (2+) Respiratory Rate 15 Respiratory Effort Respiratory Pattern Blood Pressure 157/93 H Blood Pressure Mean 114 Blood Pressure Source Monitor Blood Pressure Position Supine Blood Pressure Location Left Arm Pulse Ox 100 Oxygen Delivery Method Room Air Weight Weight: 99.535 kg Body Mass Index (BMI) 27.4 Physical Exam Const alert and oriented x3 General Appearance: cooperative HEENT normocephalic, head/scalp atraumatic, EAC's normal and TM's normal bilaterally Eyes PERRL and EOMs intact bilaterally Pupil: sluggish Neck no lymphadenopathy, supple and no JVD General: trachea midline Lymph Lymphatic: no lymphadenopathy noted, lymphedema and lymphadenopathy Resp normal respiratory effort, normal air movement and clear to auscultation bilaterally Cardio regular rate, regular rhythm and peripheral pulses 2+ throughout GI soft to palpation, non-tender and non-distended Extremity normal capillary refill and no clubbing, cyanosis or edema General Extremity: no tenderness to palpation of joints or extremities Skin no rashes or lesions noted General Skin Exam: turgor normal Lesions: no lesions Rashes: no rashes Neuro CN's II-XII intact bilaterally Speech: speech normal Motor Exam: strength 5/5 throughout; Negative for general weakness Psych thought process normal, cooperative and affect normal Appearance: appropriate Results Lab / Micro Data Result Diagrams: 01/01/23 06:15 01/01/23 06:15 Labs: Laboratory Results - last 24 hr 12/31/22 16:47: WBC 11.7 H, RBC 5.54, Hgb 15.9, Hct 44.0, MCV 79.4 L, MCH 28.7, MCHC 36.1 H, RDW Std Deviation 35.6, RDW Coeff of [place] 12.5, Plt Count 363, MPV 8.8, Immature Gran % (Auto) 0.300, Neut % (Auto) 87.1 H, Lymph % (Auto) 8.0 L, [place] % (Auto) 3.8, Eos % (Auto) 0.3, Baso % (Auto) 0.5, Absolute Neuts (auto) 10.2 H, Absolute Lymphs (auto) 0.94, Nucleated RBC % 0 12/31/22 16:47: Sodium 140, Potassium 3.9, Chloride 108 H, Carbon Dioxide 22.0, Anion Gap 10, BUN 17, Creatinine 0.99, Estim Creat Clear Calc 106.69, Est GFR (MDRD) Af Amer 103, Est GFR (MDRD) Non-Af 85, BUN/Creatinine Ratio 17.2, Glucose 152 H, Calcium 9.6 12/31/22 18:10: Urine Color Brown, Urine Clarity Turbid, Urine pH 6.5, Ur Specific [place] 1.025, Urine Protein 100 H, Urine Glucose (UA) Normal, Urine Ketones 15 H, Urine Occult Blood 250 H, Urine Nitrite Negative, Urine Bilirubin 1 H, Urine Urobilinogen 1 H, Ur Leukocyte Esterase 25 H, Urine RBC > 100 SEEN, Urine WBC 0-5 SEEN, Ur Squamous Epith Cells 0 SEEN, Urine Bacteria 0 SEEN, Urine Mucus 0 SEEN, Urine Yeast 1+ 01/01/23 06:15: WBC 9.4, RBC 4.79, Hgb 13.6, Hct 40.1, MCV 83.7 D, MCH 28.4, MCHC 33.9 D, RDW Std Deviation 38.6, RDW Coeff of [place] 12.7, Plt Count 281, MPV 9.2, Immature Gran % (Auto) 0.500, Neut % (Auto) 75.1 H, Lymph % (Auto) 14.4 L, [place] % (Auto) 9.4, Eos % (Auto) 0.2, Baso % (Auto) 0.4, Absolute Neuts (auto) 7.0, Absolute Lymphs (auto) 1.35, Nucleated RBC % 0 01/01/23 06:15: Sodium 142, Potassium 3.7, Chloride 111 H, Carbon Dioxide 25.0, Anion Gap 6, BUN 17, Creatinine 1.28, Estim Creat Clear Calc 82.52, Est GFR (MDRD) Af Amer 76, Est GFR (MDRD) Non-Af 63, BUN/Creatinine Ratio 13.3, Glucose 97, Calcium 8.7 Radiology Impression Abdomen/Pelvis CT 12/31/22 16:36 IMPRESSION: Obstruction of the left kidney and collecting system from a 7 mm proximal to mid left ureteral stone. Additional small nonobstructing stones of the left kidney. Cholelithiasis. Electronically Signed: Munir Lund MD at 17:53 EDT , Assessment & Plan Assessment/Plan (1) Hydronephrosis with urinary obstruction due to ureteral calculus: PLAN: Admitted for pain control plan for stent today discharge home today with antibiotics and pain medicine we will set him up for outpatient surgery.
--- NOTE | 2023-01-01 08:25 | OP.PCM_ITS ---
Report of Operation Date of Procedure: 01/01/23 Pre-Operative Diagnosis: Left obstructing ureteral calculi Post-Operative Diagnosis: Same with severe renal colic Surgery/Procedure Performed:: Cystoscopy and left stent placement Description of Surgical Findings:: Patient was taken back to the operating room after induction of general anesthesia, the patient was placed in dorsolithotomy position. The urethra and genitals were prepped and draped in usual sterile fashion. Using a 21 [place] rigid cystourethroscope the entire length of the urethra was normal then went into the bladder. Identified the trigone the left and right ureteral orifice. I then cannulated the Left ureteral orifice and advanced a wire up into the kidney. I then backloaded a 5 [place] open ended catheter over the wire and injected contrast to delineate the anatomy. After the retrograde was performed I then used fluoroscopic images and guidance to advanced a wire up into the kidney and over the 0.038 glidewire I advanced a 6 [place] by 26 cm double pigtail stent. I then pulled the 0.038 Glidewire off and the stent coiled in the kidney bladder good position. The bladder was then drained. We confirmed the position of the stent by fluoroscopy. Patient anesthetic was reversed and was taken back to the PACU in good condition. Surgeon: Shaquille Atkinson Type of Anesthesia: MAC Drains: stent left side. Admit VTE Documentation VTE Present on Admission: No VTE Mechan Device Prophylaxis: SCD's VTE Pharm Prophylaxis ordered?: No
--- NOTE | 2023-01-01 08:31 | DCINST_ITS ---
Discharge Instructions Diet Discharge Diet: No restrictions, Light diet - advance as tolerated and Soft diet Activity Discharge Activity: Return to Normal Activity Follow Up Care Please Follow Up With: Shaquille Atkinson MD When: call office for instructions. Test Results: Test results from this visit will be discussed in further detail at your follow- up appointment, if applicable. Discharge Plan Admission Admit Date/Time: 12/31/22 20:59 Primary Reason for Your Visit: left stent for stone Attending Provider: Shaquille Atkinson Primary Care Provider: Fely Bob NP Discharge Orders/Prescriptions Prescriptions: New hydrocodone-acetaminophen 5-325 mg tablet 1 tab PO Q6H PRN (Reason: pain) 7 Days Qty: 20 0RF ciprofloxacin HCl [Cipro] 500 mg tablet 500 mg PO BID Qty: 10 0RF Continued doxepin 10 mg capsule 10 mg PO QHS gabapentin 800 tablet 800 mg PO QHS ropinirole 1 mg tablet 1 mg PO QHS Label Comments: take 1 tablet by mouth at bedtime citalopram 10 mg tablet 10 mg PO DAILY Label Comments: take 1 tablet by mouth once daily mirtazapine 30 mg tablet 30 mg PO QHS Label Comments: take 1 tablet by mouth at bedtime atorvastatin 80 mg tablet 80 mg PO QHS losartan 25 mg tablet 12.5 mg PO DAILY metoprolol tartrate 25 mg tablet 25 mg PO BID aspirin 81 mg tablet,delayed release (DR/EC) 81 mg PO DAILY@0800 Qty: 30 12RF nitroglycerin 0.4 mg tablet, sublingual 0.4 mg sublingual Q5M PRN (Reason: Cardiac/Chest Pain) Qty: 25 3RF Referrals / Follow Up: Shaquille Atkinson MD [Med Staff - Active Staff] - Fely Bob NP, RADIATION TECHNICIAN-C [Primary Care Provider] - Disposition Discharge Orders: Discharge Patient (Routine); Ordered 01/01/23 Ordered By: Dr. Shaquille Atkinson
[2023-01-01] MEDS: HYDROcodone Bitartrate/Apap 5/325 Tablet PO (09:56)
== END 2023-01-01 11:39 | disposition home or self-care (01) ==
LOC: ED 16:45 → MS3 21:26
PROVIDERS: Physician Assistant; Admitting Provider Urology; Emergency Provider Emergency Medicine; PCP Nurse Practitioner Family; Visit Provider Urology
PROC: (CPT 52332; principal; 2023-01-01 08:00)
DX: N13.2 Hydronephrosis with renal and ureteral calculous obstruction (principal); I10 Essential (primary) hypertension; I25.10 Atherosclerotic heart disease of native coronary artery without angina pectoris; F17.220 Nicotine dependence, chewing tobacco, uncomplicated; Z95.5 Presence of coronary angioplasty implant and graft; E78.5 Hyperlipidemia, unspecified; Z79.82 Long term (current) use of aspirin; Z86.16 Personal history of COVID-19; Z79.899 Other long term (current) drug therapy; I25.2 Old myocardial infarction; G25.81 Restless legs syndrome; G47.30 Sleep apnea, unspecified
CPT/HCPCS: 52332; 36415; 74176; 76000; 80048; 81001; 85025; 93005; 96361; 96365; 96375; 96376; 99221; 99283; J7030; A4216; C1769; C2617; G0378; J2405

== ENCOUNTER → 2023-09-13 | Outpatient (CLI) | payer BC, SELFPAY ==
[2020-04-17 15:33] VITALS: BMI 29.8
--- OUTSIDE RECORDS SUMMARY | 2023-09-13 10:26 | XMS RPT_ITS | CCD ---
Author Name Unknown Address [address] [place] [address] Organization [facility] Care Team Providers Care Mushroom Cutter Name Role Phone Rafy Cheema Unavailable Unavailable Rafy Cheema Unavailable Unavailable Unavailable Unavailable Unavailable Lisbeth YARN EXAMINER SKEINS.KATERIN, Fely Primary Care Provider Lisbeth YARN EXAMINER SKEINS.KATERIN, Feyl Primary Care Provider Lisbeth YARN EXAMINER SKEINS.KATERIN, Fely Primary Care Provider Lisbeth YARN EXAMINER SKEINS.KEEPER HELPER, [facility] Primary Care Provider LISBETH, FELY Primary Care Unavailable LISBETH, FELY Attending Unavailable LISBETH, FELY Primary Care Unavailable LISBETH, FELY Referring Unavailable LISBETH, FELY Primary Care Unavailable LISBETH, FELY Primary Care Unavailable LISBETH, FELY Attending Unavailable Allergies Allergy Classification Reported Allergen(s) Allergy Type Date of Onset Reaction(s) Facility (1 source) Lisinopril; Translations: [LISINOPRIL] Drug Allergy 04-12-2021 [facility] Repository Medications Current Medications Medication Drug Class(es) Dates Sig (Normalized) Sig (Original) atorvastatin 80 mg oral tablet (8 sources) HMG-CoA Reductase Inhibitor Start: 08-21-2019 End: 07-18-2023 take 1 tablet by mouth once daily atorvastatin (LIPITOR) 80 mg tablet Indications: Well adult exam , Hx of myocardial infarction Take 1 tablet by mouth once daily. 30 tablet 2 04/19/2023 07/18/2023 Active Completed/Discontinued Medications Medication Drug Class(es) Dates Sig (Normalized) Sig (Original) aspirin 81 mg chewable tablet (7 sources) Platelet Aggregation Inhibitor, Nonsteroidal Anti-inflammatory Drug take 1 tablet by mouth once daily aspirin 81 mg chewable tablet Take 81 mg by mouth once daily. 0 Active Problems Active Problems Problem Classification Problem Date Documented Date Episodic/Chronic Acute myocardial infarction (7 sources) Myocardial infarction; Translations: [Acute myocardial infarction, unspecified] Onset: 02-25-2022 02-25-2022 Chronic Coronary atherosclerosis and other heart disease (2 sources) History of myocardial infarction; Translations: [Old myocardial infarction] Onset: 08-25-2023 04-19-2023 Chronic Disorders of lipid metabolism (10 sources) Mixed hyperlipidemia; Translations: [Mixed hyperlipidemia] Onset: 02-25-2022 Chronic Esophageal disorders (7 sources) Gastroesophageal reflux disease without esophagitis; Translations: [Gastro-esophageal reflux disease without esophagitis] Onset: 02-25-2022 02-25-2022 Chronic Essential hypertension (7 sources) Hypertensive disorder; Translations: [Essential (primary) hypertension] Onset: 02-25-2022 02-25-2022 Chronic Immunizations and screening for infectious disease (9 sources) Patient encounter status; Translations: [Encounter for screening for human immunodeficiency virus [HIV]] Episodic Miscellaneous mental health disorders (2 sources) Primary insomnia; Translations: [Primary insomnia] Onset: 02-25-2022 04-19-2023 Chronic Mood disorders (5 sources) Depressive disorder; Translations: [Depression, unspecified depression type] Chronic Mood disorders (1 source) Mood disorders; Translations: [Depression, unspecified depression type] Onset: 08-25-2023 Nutritional deficiencies (7 sources) Vitamin D deficiency; Translations: [Vitamin D deficiency, unspecified] Onset: 02-28-2022 02-28-2022 Chronic Other hereditary and degenerative nervous system conditions (8 sources) Restless legs; Translations: [Restless legs syndrome] Onset: 02-25-2022 02-25-2022 Chronic Other hereditary and degenerative nervous system conditions (1 source) Restless legs syndrome; Translations: [RLS (restless legs syndrome)] Onset: 02-25-2022 Chronic Other lower respiratory disease (1 source) Persistent cough; Translations: [Persistent cough] Onset: 08-25-2023 Episodic Other upper respiratory disease (1 source) Seasonal allergy; Translations: [Other seasonal allergic rhinitis] 04-19-2023 Chronic Other upper respiratory disease (1 source) Other seasonal allergic rhinitis; Translations: [Seasonal allergies] Onset: 08-25-2023 Chronic Residual codes; unclassified (7 sources) Sleep apnea; Translations: [Sleep apnea, unspecified] Onset: 02-25-2022 02-25-2022 Chronic Past or Other Problems Problem Classification Problem Date Documented Da te Episodic/Chronic Residual codes; unclassified (7 sources) Insomnia; Translations: [Insomnia, unspecified] Onset: 02-25-2022 02-25-2022 Episodic Results Test Name Value Interpretation Reference Range Facil ity Vital Signs Date Time Vital Sign Value Performing Clinician Faci lity 04-19-2023 10:38-0400 Body weight 108.14 kg Fely Lisbeth YARN EXAMINER SKEINS.KEEPER HELPER Work Phone: [facility] 04-19-2023 10:38-0400 Diastolic blood pressure 94 mm[Hg] Fely Lisbeth YARN EXAMINER SKEINS.KEEPER HELPER Work Phone: [facility] 04-19-2023 10:38-0400 Heart rate 61 /min Fely Lisbeth YARN EXAMINER SKEINS.KEEPER HELPER Work Phone: [facility] 04-19-2023 10:38-0400 Respiratory rate 16 /min Fely Lisbeth YARN EXAMINER SKEINS.KEEPER HELPER Work Phone: [facility] 04-19-2023 10:38-0400 SaO2% (BldA) [Mass fraction] 98 % Fely Lisbeth YARN EXAMINER SKEINS.KEEPER HELPER Work Phone: [facility] 04-19-2023 10:38-0400 Systolic blood pressure 136 mm[Hg] Fely Lisbeth YARN EXAMINER SKEINS.KEEPER HELPER Work Phone: [facility] 04-28-2022 13:15-0400 Body weight 108.5 kg Fely Lisbeth YARN EXAMINER SKEINS.KEEPER HELPER Work Phone: [facility] 04-28-2022 13:15-0400 Diastolic blood pressure 84 mm[Hg] Fely Lisbeth YARN EXAMINER SKEINS.KEEPER HELPER Work Phone: [facility] 04-28-2022 13:15-0400 Heart rate 78 /min Fely Lisbeth YARN EXAMINER SKEINS.KEEPER HELPER Work Phone: [facility] 04-28-2022 13:15-0400 SaO2% (BldA) [Mass fraction] 96 % Fely Lisbeth YARN EXAMINER SKEINS.KEEPER HELPER Work Phone: [facility] 04-28-2022 13:15-0400 Systolic blood pressure 120 mm[Hg] Fely Lisbeth YARN EXAMINER SKEINS.KEEPER HELPER Work Phone: [facility] 03-22-2022 13:06-0400 Body height 193 cm Jennifer Slayden PA-C Work Phone: [facility] 03-22-2022 13:06-0400 Body temperature 99 [degF] Jennifer Slayden PA-C Work Phone: [facility] 03-22-2022 13:06-0400 Body weight 108.41 kg Jennifer Slayden PA-C Work Phone: [facility] 03-22-2022 13:06-0400 Diastolic blood pressure 83 mm[Hg] Jennifer Cynthia PA-C Work Phone: [facility] 03-22-2022 13:06-0400 Heart rate 87 /min Jennifer Slayden PA-C Work Phone: [facility] 03-22-2022 13:06-0400 SaO2% (BldA) [Mass fraction] 97 % Jennifer Cynthia PA-C Work Phone: [facility] 03-22-2022 13:06-0400 Systolic blood pressure 130 mm[Hg] Jennifer Slayden PA-C Work Phone: [facility] 02-25-2022 12:16-0400 Body height 194 cm Fely Tinocoman YARN EXAMINER SKEINS.KEEPER HELPER Work Phone: [facility] 02-25-2022 12:16-0400 Body weight 107.14 kg Fely Tinocoman YARN EXAMINER SKEINS.KEEPER HELPER Work Phone: [facility] 02-25-2022 12:16-0400 Diastolic blood pressure 96 mm[Hg] Fely Lisbeth YARN EXAMINER SKEINS.KEEPER HELPER Work Phone: [facility] 02-25-2022 12:16-0400 Heart rate 95 /min Fely Lisbeth YARN EXAMINER SKEINS.KEEPER HELPER Work Phone: [facility] 02-25-2022 12:16-0400 Respiratory rate 16 /min Fely Lisbeth YARN EXAMINER SKEINS.KEEPER HELPER Work Phone: [facility] 02-25-2022 12:16-0400 SaO2% (BldA) [Mass fraction] 95 % Fely Lisbeth YARN EXAMINER SKEINS.KEEPER HELPER Work Phone: [facility] 02-25-2022 12:16-0400 Systolic blood pressure 130 mm[Hg] Fely Lisbeth YARN EXAMINER SKEINS.KEEPER HELPER Work Phone: [facility] Encounters Encounter Date Encounter Type Care Provider Facility Start: 08-25-2023 End: 08-26-2023 ambulatory [facility] Facility:[facility] Start: 08-24-2023 End: 08-24-2023 ambulatory [facility] Facility:[facility] Start: 04-19-2023 End: 04-20-2023 ambulatory [facility] Facility:[facility] Start: 04-19-2023 Encounter for genera l adult medical examination without abnormal findings FELYFLACO BOB [facility] Start: 04-19-2023 End: 04-19-2023 ambulatory [facility] Facility:[facility] Start: 04-19-2023 End: 04-19-2023 Patient encounter procedure Fely Lisbeth YARN EXAMINER SKEINS.KEEPER HELPER Work Phone: [facility] [place] Procedures Date Procedure Procedure Detail Performing Clinician Start: 03-21-2022 Adult depression screening assessment Jennifer Marie PA-C Work Phone: Plan of Treatment Date Care Activity Detail Author Start: 02-25-2027 LIPID SCREEN LIPID SCREEN [facility] Start: 02-25-2025 DIABETES SCREEN DIABETES SCREEN [facility] Start: 04-19-2024 ANNUAL PCP TEAM CLUTCH ASSEMBLER CORTEZ DISEASE VISIT ANNUAL PCP TEAM CHRONIC DISEASE VISIT [facility] Start: 04-28-2023 ANNUAL PCP TEAM CLUTCH ASSEMBLER CORTEZ DISEASE VISIT ANNUAL PCP TEAM CHRONIC DISEASE VISIT [facility] Start: 04-21-2023 Influenza vaccination INFLUENZA (#1) [facility] Start: 04-19-2023 End: 06-19-2023 Comprehensive metabolic 2000 panel - Serum or Plasma [facility] Work Phone: Immunizations Immunization Date Immunization Notes Care Provider Fa cility 07-12-2021 COVID-19 vaccine, fu ll dose (MODERNA) Fely Lisbeth YARN EXAMINER SKEINS.KEEPER HELPER Work Phone: [facility] Work Phone: 06-09-2021 COVID-19 vaccine, fu ll dose (MODERNA) Fely Lisbeth YARN EXAMINER SKEINS.KEEPER HELPER Work Phone: [facility] Work Phone: Payers Date Payer Category Payer Unknown [id number] 2020 Unknown MMO MMO [employer] [id number] 2020-Present [phone] [address] [place] [address] PPO [id number] 2020 Unknown [id number] Unknown [id number] Social History Date Type Detail Facility Tobacco smoking stat us HIIS Unknown if ever smoked [facility] Start: 1970 Sex Assigned At Not on file [facility] Start: 08-23-2019 End: 04-28-2022 Tobacco smoking status NHIS Ex-smoker [facility] Start: 08-23-2019 End: 04-28-2022 Tobacco use and exposure User of smokeless tobacco [facility] History of tobacco use Chews Tobacco [facility] Start: 02-25-2022 History SDOH Alcohol Comment very infrequently [facility] Start: 02-25-2022 End: 04-28-2022 Tobacco Comment quit smoking August 2017-has used chew since age 18 [facility] Start: 02-15-2022 End: 04-28-2022 Exposure to SARS-CoV-2 (event) Not sure [facility] Start: 03-21-2022 History SDOH Alcohol Frequency 2 [facility] Start: 03-21-2022 History SDOH Alcohol Std Drinks 98 [facility] Start: 03-21-2022 History SDOH Social Connections Phone 1 [facility] Start: 03-21-2022 History SDOH Social Connections Living 8 [facility] Start: 03-21-2022 History SDOH Physica l Activity MPS 0 [facility] Start: 03-21-2022 History SDOH Stress 5 [facility] History of tobacco use Current smoker [facility] Start: 03-21-2022 End: 04-19-2023 History of Social function [facility] Start: 03-21-2022 End: 04-19-2023 Social connection and isolation panel [facility] Do you belong to any clubs or organizations such as roman catholic groups, unions, fraternal or athletic groups, or school groups? No [facility] How often do you att end meetings of the clubs or organizations you belong to? Patient refused [facility] Are you now , , , , never or living with a partner? Living with partner [facility] How often to you hav e a drink containing alcohol? Monthly or less [facility] How often do you hav e 6 or more drinks on 1 occasion? Less than monthly [facility] How hard is it for y ou to pay for the very basics like food, housing, medical care, and heating Hard [facility] Do you feel stress - tense, restless, nervous, or anxious, or unable to sleep at night because your mind is troubled all the time - these days [OSQ] Very much [facility] (I/We) worried wheth er (my/our) food would run out before (I/we) got money to buy more. Sometimes true [facility] In the past 12 month s, was there a time when you were not able to pay the mortgage or rent on time? Yes [facility] Clinical Notes 02-25-2022 to 08-25-2023 Patient Fely Mitchell APRN.KEEPER HELPER - 04/19/2023 10:50 AM EDTTelephone Encounter - Elle Pritchett LPN - 08/18/2022 10:25 AM Matilde Bob APRN.KATERIN - 04/28/2022 1:51 PM EDT Note Date & Type Note Facility 08-25-2023 Note HNO ID: [id number] Author: FELY BOB APRN.KATERIN Service: ? Author Type: Nurse Practitioner Type: Progress Notes Filed: 08/25/2023 15:08 Note Text: Chief Complaint Patient presents with: Medication Follow-up: HPI Suha Zambrano is a 53 year old male who presents here today for Above Complaints.. Currently today: Celexa does not seem to be working for his depression-does not notice anything at all with this. Has gone 2-3 days in a row without taking it several times and doesn't notice any difference. Depression-sometimes just feels like he doesn't want to do anything, no motivation. Very irritable, easily aggravated. Denies SI/HI. Insomnia-was on gabapentin 800mg in the past for restless legs. Has been off of this for about a year, but in the last couple months has worsened again. Cough for about a month after URI, has drainage causing him to cough that is keeping him up at night. Past medical history, appointments, medications, allergies reviewed. Previous Medical History PAST MEDICAL HISTORY Diagnosis Date Gastroesophageal reflux disease without esophagitis Heart attack (HCC) Hypertension Insomnia Mixed hyperlipidemia RLS (restless legs syndrome) Sleep apnea Previous Surgical History PAST SURGICAL HISTORY Procedure Laterality Date HEART CATHETERIZATION 08/19/2019 HERNIA REPAIR HX groin area OPEN/PERQ PLACEMENT INTRAVASCULAR STENT EA ADDL 08/19/2019 2 stents placed Family History FAMILY HISTORY Problem Relation Age of Onset No Known Problems Mother estranged from family-unaware of family hx Hypertension Father Cancer Sister unknown-estranged Multiple Sclerosis Sister passed at age 37 No Known Problems Maternal Grandmother No Known Problems Maternal Grandfather No Known Problems Paternal Grandmother No Known Problems Paternal Grandfather Patient Allergies ALLERGIES Allergen Reactions Lisinopril Cough Current Medications Current Outpatient Medications on File Prior to Visit Medication Sig benzonatate (TESSALON PERLE) 100 mg capsule Take 1 capsule by mouth every 8 hours as needed for cough for up to 15 days. atorvastatin (LIPITOR) 80 mg tablet Take 1 tablet by mouth once daily. Cholecalciferol, Vitamin D3, 125 mcg (5,000 unit) cap Take 1 capsule by mouth once daily. losartan (COZAAR) 25 mg tablet Take 0.5 tablets by mouth once daily. metoprolol tartrate, short acting, (LOPRESSOR) 25 mg tablet Take 1 tablet by mouth twice daily. mirtazapine (REMERON) 15 mg tablet Take 3 tablets by mouth daily at bedtime. citalopram (CELEXA) 40 mg tablet Take 1 tablet by mouth once daily. montelukast (SINGULAIR) 10 mg tablet Take 1 tablet by mouth daily at bedtime. doxepin capsule 10 mg Take 1 capsule by mouth daily at bedtime. pramipexole (MIRAPEX) 0.5 mg tablet Take 0.5 mg by mouth once daily. aspirin 81 mg chewable tablet Take 81 mg by mouth once daily. nitroglycerin sublingual (NITROQUICK) 0.4 mg SL tablet Dissolve 1 tablet under the tongue as directed. No current facility-administered medications on file prior to visit. Social History Social History Tobacco Use Smoking status: Former Smokeless tobacco: Current Types: Chew Tobacco comments: quit smoking August 2017-has used chew since age 18 Vaping Use Vaping Use: Never used Substance Use Topics Drug use: Never Review of Symptoms REVIEW OF SYSTEMS See HPI, otherwise negative EXAM: BP 116/70 (BP Site: Left Arm, BP Position: Sitting, BP Cuff Size: Regular Adult) Pulse 75 Resp 16 Wt 112.1 kg (247 lb 3.2 oz) SpO2 97% BMI 30.09 kg/m? General Appearance: Well appearing, alert, in no acute distress, well-hydrated, well nourished.. Lungs: Lungs clear to auscultation. No wheezing, rhonchi, rales. Dry cough. Heart: RRR without murmur, gallop, or rubs. No ectopy. Psychiatric: pleasant, cooperative. Health Maintenance List Hepatitis B Vaccine(1 of 3 - 3-dose series) Never done BP Controlled (<130/80) Never done DTaP,Tdap,Td Vaccine(1 - Tdap) Never done Colorectal Cancer Screening Never done Shingrix Vaccine(1 of 2) Never done Influenza Vaccine(1) Never done Covid-19 Vaccine(3 - 2022- season) due on 04/21/2023 Depression Assessment Never done Annual PCP Team Chronic Disease Visit due on 04/19/2024 Diabetes Screening due on 04/19/2026 Lipid Screening due on 04/19/2028 Hepatitis C Screening Completed HIV Screening Completed Data reviewed Previous records, office notes, [place]AR[place] report PDMP website checked and validated. All prescriptions have been APPROPRIATELY filled. No suspicious activity was identified. 08/25/2023 by Fely Bob CNP. ASSESSMENT/PLAN: 1. Persistent cough - ICD9: 786.2, ICD10: R05.3 (primary diagnosis) - CODEINE 10 MG-GUAIFENESIN 100 MG/5 ML ORAL LIQUID 2. Seasonal allergies - ICD9: 477.9, ICD10: J30.2 - MONTELUKAST 10 MG TABLET 3. Depression, unspecified depression type - ICD9: 311, ICD10: F32.A Wean (more content not included)... [facility] 08-24-2023 Note HNO ID: [id number] Author: ZEYAD BUTT MD Service: ? Author Type: Physician Type: Progress Notes Filed: 08/24/2023 12:11 Note Text: Patient presents with: Cough: Chest congestion x1 week HPI: Feeling sick for 1 week. He was up with harsh coughing last night. Positive symptoms: Cough, Sore throat, Nasal Congestion, Rhinorrhea, Post nasal drainage, Chills, tussive Vomiting, Negative symptoms: Shortness of breath, Wheezing, Fever, Nausea, Diarrhea, OTC: Mucinex DM, Sudafed, lozenges No COVID test this illness Remote history of pneumonia. No history of COPD or asthma. PAST MEDICAL HISTORY Diagnosis Date Gastroesophageal reflux disease without esophagitis Heart attack (HCC) Hypertension Insomnia Mixed hyperlipidemia RLS (restless legs syndrome) Sleep apnea MEDICATIONS: Current Outpatient Medications Medication Sig Cholecalciferol, Vitamin D3, 125 mcg (5,000 unit) cap Take 1 capsule by mouth once daily. doxepin capsule 10 mg Take 1 capsule by mouth daily at bedtime. pramipexole (MIRAPEX) 0.5 mg tablet Take 0.5 mg by mouth once daily. aspirin 81 mg chewable tablet Take 81 mg by mouth once daily. atorvastatin (LIPITOR) 80 mg tablet Take 1 tablet by mouth once daily. losartan (COZAAR) 25 mg tablet Take 0.5 tablets by mouth once daily. metoprolol tartrate, short acting, (LOPRESSOR) 25 mg tablet Take 1 tablet by mouth twice daily. mirtazapine (REMERON) 15 mg tablet Take 3 tablets by mouth daily at bedtime. nitroglycerin sublingual (NITROQUICK) 0.4 mg SL tablet Dissolve 1 tablet under the tongue as directed. citalopram (CELEXA) 40 mg tablet Take 1 tablet by mouth once daily. montelukast (SINGULAIR) 10 mg tablet Take 1 tablet by mouth daily at bedtime. No current facility-administered medications for this visit. ALLERGIES: ALLERGIES Allergen Reactions Lisinopril Cough VITALS: BP 139/79 Pulse 80 Temp 36.4 ?C (97.6 ?F) Resp 20 Wt 114.2 kg (251 lb 12.8 oz) SpO2 98% BMI 30.65 kg/m? PHYSICAL EXAM: GEN: mildly ill appearing HEENT: PERRL, EOMI, conjunctiva clear Ears: canals clear. TMs without erythema, bulge, or effusion Sinuses: non-tender frontal sinus, non-tender maxillary sinuses Throat: moist mucous membranes, mild erythema, no exudate Neck: supple, no thyromegaly, no lymphadenopathy HEART: regular rate and rhythm, no murmurs LUNGS: clear to auscultation, no wheezes or crackles, no increased WOB ASSESSMENT/PLAN: 1. Acute cough - ICD9: 786.2, ICD10: R05.1 - suspect viral URI, differential includes COVID-19. - Discussed supportive care treatment with home isolation, rest, cold medicine, and analgesia. - Red flags to seek further treatment include chest pain, shortness of breath, late onset fever, and lethargy; in the ER if severe. - COVID AND INFLUENZA A/B AND RSV NAAT, ROUTINE -he is beyond the therapeutic window for antiviral medications. - BENZONATATE 100 MG CAPSULE Zeyad Butt MD [facility] 07-11-2023 Note HNO ID: [id number] Author: Erin Montoya Service: ? Author Type: ? Type: Progress Notes Filed: 07/11/2023 1:25 PM Note Text: 07-11 2'nd attempt to schedule colonoscopy. LVM to return call Erin Montoya [facility] 04-25-2023 Note HNO ID: [id number] Author: Rdui Lawrence Service: ? Author Type: ? Type: Progress Notes Filed: 04/25/2023 11:34 AM Note Text: 1st failed attempt to schedule colonoscopy, left VM JN 04/25 [facility] 04-19-2023 Note HNO ID: [id number] Author: Fely Bob APRN.KATERIN Service: ? Author Type: Nurse Practitioner Type: Progress Notes Filed: 04/19/2023 3:39 PM Note Text: Chief Complaint Patient presents with: Medication Follow-up HPI Suha Zambrano is a 53 year old male who presents here today for Above Complaints. Today: Depression-feels like his antidepressant isn't working. Sleeps all the time. Doesn't feel like Celexa is helping or ever has helped. No SI/HI. Allergies-has been using Sudafed, Flonase, Afrin, Zyrtec, Claritin. None of these have helped at all. Has runny nose and gets headaches. Would like to get caught up on some health maintenance. Past medical history, appointments, medications, allergies reviewed. Previous Medical History PAST MEDICAL HISTORY Diagnosis Date Gastroesophageal reflux disease without esophagitis Heart attack (HCC) Hypertension Insomnia Mixed hyperlipidemia RLS (restless legs syndrome) Sleep apnea Previous Surgical History PAST SURGICAL HISTORY Procedure Laterality Date HEART CATHETERIZATION 08/19/2019 HERNIA REPAIR HX groin area OPEN/PERQ PLACEMENT INTRAVASCULAR STENT EA ADDL 08/19/2019 2 stents placed Family History FAMILY HISTORY Problem Relation Age of Onset No Known Problems Mother estranged from family-unaware of family hx Hypertension Father Cancer Sister unknown-estranged Multiple Sclerosis Sister passed at age 37 No Known Problems Maternal Grandmother No Known Problems Maternal Grandfather No Known Problems Paternal Grandmother No Known Problems Paternal Grandfather Patient Allergies ALLERGIES No Known Allergies Current Medications Current Outpatient Medications on File Prior to Visit Medication Sig citalopram (CELEXA) 20 mg tablet take 1 tablet by mouth once daily Cholecalciferol, Vitamin D3, 125 mcg (5,000 unit) cap Take 1 capsule by mouth once daily. losartan (COZAAR) 25 mg tablet Take 0.5 tablets by mouth once daily. doxepin capsule 10 mg Take 1 capsule by mouth daily at bedtime. mirtazapine (REMERON) 15 mg tablet Take 3 tablets by mouth daily at bedtime. nitroglycerin sublingual (NITROQUICK) 0.4 mg SL tablet Dissolve 1 tablet under the tongue as directed. atorvastatin (LIPITOR) 80 mg tablet Take 1 tablet by mouth once daily. metoprolol tartrate, short acting, (LOPRESSOR) 25 mg tablet Take 1 tablet by mouth twice daily. pramipexole (MIRAPEX) 0.5 mg tablet Take 0.5 mg by mouth once daily. aspirin 81 mg chewable tablet Take 81 mg by mouth once daily. gabapentin (NEURONTIN) 800 mg tablet Take 1.5 tablets by mouth daily at bedtime. (Patient not taking: Reported on 04/19/2023) No current facility-administered medications on file prior to visit. Social History Social History Tobacco Use Smoking status: Former Smokeless tobacco: Current Types: Chew Tobacco comments: quit smoking August 2017-has used chew since age 18 Vaping Use Vaping Use: Never used Substance Use Topics Drug use: Never Review of Symptoms REVIEW OF SYSTEMS See HPI, otherwise negative EXAM: BP 136/94 (BP Site: Left Arm, BP Position: Sitting, BP Cuff Size: Regular Adult) Pulse 61 Resp 16 Wt 108.1 kg (238 lb 6.4 oz) SpO2 98% BMI 29.02 kg/m? General Appearance: Well appearing, alert, in no acute distress, well-hydrated, well nourished.. Lungs: Lungs clear to auscultation. No wheezing, rhonchi, rales.. Heart: RRR without murmur, gallop, or rubs. No ectopy. Psychiatric: pleasant, cooperative, no SI/HI. Health Maintenance List HEPATITIS B(1 of 3 - 3-dose series) Never done BP CONTROLLED (<130/80) Never done DTAP,TDAP,TD(1 - Tdap) Never done COLORECTAL CANCER SCREENING Never done COVID-19 VACCINE(3 - Moderna series) due on 09/06/2021 SHINGRIX VACCINE(1 of 2) Never done DEPRESSION ASSESSMENT Never done INFLUENZA(1) due on 04/21/2023 ANNUAL PCP TEAM CHRONIC DISEASE VISIT due on 04/28/2023 DIABETES SCREEN due on 02/25/2025 LIPID SCREEN due on 02/25/2027 HEPATITIS C SCREENING Completed HIV SCREENING Completed Data reviewed Previous records, office notes ASSESSMENT/PLAN: 1. Well adult exam - ICD9: V70.0, ICD10: Z00.00 (primary diagnosis) - Counseled on healthy diet and regular exercise - Follow up for annual exam in one year - ATORVASTATIN 80 MG TABLET - CHOLECALCIFEROL (VITAMIN D3) 125 MCG (5,000 UNIT) CAPSULE - LOSARTAN 25 MG TABLET - METOPROLOL TARTRATE 25 MG TABLET - MIRTAZAPINE 15 MG TABLET - NITROGLYCERIN 0.4 MG SUBLINGUAL TABLET - CITALOPRAM 40 MG TABLET - COLONOSCOPY SCREENING - CBC - COMP METABOLIC PANEL - LIPID PANEL BASIC 2. Depression, unspecified depression type - ICD9: 311, ICD10: F32.A Increase citalopram from 20mg to 40mg daily. Follow up in 2-3 months. - CITALOPRAM 40 MG TABLET 3. Seasonal allergies - ICD9: 477.9, ICD10: J30.2 Cetirizine daily, Singulair at bedtime daily. May consider steroid shot in the future if necessary. - CETIRIZINE (more content not included)... [facility] 04-19-2023 Instructions Fely Bob APRN.KATERIN - 04/19/2023 11:24 AM EDT Increase your Celexa from 20mg to 40mg daily. Start taking cetirizine in the am and Singulair at bedtime. Let me know if this doesn't help your allergies and we'll try a steroid shot. documented in this encounter [facility] 04-19-2023 History of Presen t illness Narrative Chief Complaint Patient presents with: Medication Follow-up HPI Suha Zambrano is a 53 year old male who presents here today for Above Complaints. Today: Depression-feels like his antidepressant isn't working. Sleeps all the time. Doesn't feel like Celexa is helping or ever has helped. No SI/HI. Allergies-has been using Sudafed, Flonase, Afrin, Zyrtec, Claritin. None of these have helped at all. Has runny nose and gets headaches. Would like to get caught up on some health maintenance. Past medical history, appointments, medications, allergies reviewed. Previous Medical History PAST MEDICAL HISTORY Diagnosis Date Gastroesophageal reflux disease without esophagitis Heart attack (HCC) Hypertension Insomnia Mixed hyperlipidemia RLS (restless legs syndrome) Sleep apnea Previous Surgical History PAST SURGICAL HISTORY Procedure Laterality Date HEART CATHETERIZATION 08/19/2019 HERNIA REPAIR HX groin area OPEN/PERQ PLACEMENT INTRAVASCULAR STENT EA ADDL 08/19/2019 2 stents placed Family History FAMILY HISTORY Problem Relation Age of Onset No Known Problems Mother estranged from family-unaware of family hx Hypertension Father Cancer Sister unknown-estranged Multiple Sclerosis Sister passed at age 37 No Known Problems Maternal Grandmother No Known Problems Maternal Grandfather No Known Problems Paternal Grandmother No Known Problems Paternal Grandfather Patient Allergies ALLERGIES No Known Allergies Current Medications Current Outpatient Medications on File Prior to Visit Medication Sig citalopram (CELEXA) 20 mg tablet take 1 tablet by mouth once daily Cholecalciferol, Vitamin D3, 125 mcg (5,000 unit) cap Take 1 capsule by mouth once daily. losartan (COZAAR) 25 mg tablet Take 0.5 tablets by mouth once daily. doxepin capsule 10 mg Take 1 capsule by mouth daily at bedtime. mirtazapine (REMERON) 15 mg tablet Take 3 tablets by mouth daily at bedtime. nitroglycerin sublingual (NITROQUICK) 0.4 mg SL tablet Dissolve 1 tablet under the tongue as directed. atorvastatin (LIPITOR) 80 mg tablet Take 1 tablet by mouth once daily. metoprolol tartrate, short acting, (LOPRESSOR) 25 mg tablet Take 1 tablet by mouth twice daily. pramipexole (MIRAPEX) 0.5 mg tablet Take 0.5 mg by mouth once daily. aspirin 81 mg chewable tablet Take 81 mg by mouth once daily. gabapentin (NEURONTIN) 800 mg tablet Take 1.5 tablets by mouth daily at bedtime. (Patient not taking: Reported on 04/19/2023) No current facility-administered medications on file prior to visit. Social History Social History Tobacco Use Smoking status: Former Smokeless tobacco: Current Types: Chew Tobacco comments: quit smoking August 2017-has used chew since age 18 Vaping Use Vaping Use: Never used Substance Use Topics Drug use: Never Review of Symptoms REVIEW OF SYSTEMS See HPI, otherwise negative EXAM: BP 136/94 (BP Site: Left Arm, BP Position: Sitting, BP Cuff Size: Regular Adult) Pulse 61 Resp 16 Wt 108.1 kg (238 lb 6.4 oz) SpO2 98% BMI 29.02 kg/m General Appearance: Well appearing, alert, in no acute distress, well-hydrated, well nourished.. Lungs: Lungs clear to auscultation. No wheezing, rhonchi, rales.. Heart: RRR without murmur, gallop, or rubs. No ectopy. Psychiatric: pleasant, cooperative, no SI/HI. Health Maintenance List HEPATITIS B(1 of 3 - 3-dose series) Never done BP CONTROLLED (<130/80) Never done DTAP,TDAP,TD(1 - Tdap) Never done COLORECTAL CANCER SCREENING Never done COVID-19 VACCINE(3 - Moderna series) due on 09/06/2021 SHINGRIX VACCINE(1 of 2) Never done DEPRESSION ASSESSMENT Never done INFLUENZA(1) due on 04/21/2023 ANNUAL PCP TEAM CHRONIC DISEASE VISIT due on 04/28/2023 DIABETES SCREEN due on 02/25/2025 LIPID SCREEN due on 02/25/2027 HEPATITIS C SCREENING Completed HIV SCREENING Completed Data reviewed Previous records, office notes ASSESSMENT/PLAN: 1. Well adult exam - ICD9: V70.0, ICD10: Z00.00 (primary diagnosis) - Counseled on healthy diet and regular exercise - Follow up for annual exam in one year - ATORVASTATIN 80 MG TABLET - CHOLECALCIFEROL (VITAMIN D3) 125 MCG (5,000 UNIT) CAPSULE - LOSARTAN 25 MG TABLET - METOPROLOL TARTRATE 25 MG TABLET - MIRTAZAPINE 15 MG TABLET - NITROGLYCERIN 0.4 MG SUBLINGUAL TABLET - CITALOPRAM 40 MG TABLET - COLONOSCOPY SCREENING - CBC - COMP METABOLIC PANEL - LIPID PANEL BASIC 2. Depression, unspecified depression type - ICD9: 311, ICD10: F32.A Increase citalopram from 20mg to 40mg daily. Follow up in 2-3 months. - CITALOPRAM 40 MG TABLET 3. Seasonal allergies - ICD9: 477.9, ICD10: J30.2 Cetirizine daily, Singulair at bedtime daily. May consider steroid shot in the future if necessary. - CETIRIZINE 10 MG TABLET - MONTELUKAST 10 MG TABLET 4. Hyperlipidemia, mixed - ICD9: 272.2, ICD10: E78.2 - Control undetermined, due for labs - Counseled on healthy diet and regular exercise - LIPID PANEL BASIC 5. Vitamin D deficiency - ICD9: 268.9, ICD10: E55.9 - CHOLECALCIFEROL (VITAMIN D3) 125 MCG (5,000 UNIT) CAPSULE 6. Hx of myocardial infarction - ICD9: 412, ICD10: I25.2 - ATORVASTATIN 80 MG TABLET - LOSARTAN 25 MG TABLET - METOPROLOL TARTRATE 25 MG TABLET - NITROGLYCERIN 0.4 MG SUBLINGUAL TABLET 7. RLS (restless legs syndrome) - ICD9: 333.94, ICD10: G25.81 - MIRTAZAPINE 15 MG TABLET 8. Primary insomnia - ICD9: 307.42, ICD10: F51.01 - MIRTAZAPINE 15 MG TABLET 9. Screening for colon cancer - ICD9: V76.51, ICD10: Z12.11 - COLONOSCOPY SCREENING Fely Bob APRN.KEEPER HELPER documented in this encounter [facility] 08-18-2022 Miscellaneous Notes Patient phones requesting refills as follows: Requested Prescriptions Pending Prescriptions Disp Refills citalopram (CELEXA) 20 mg tablet [Pharmacy Med Name: CITALOPRAM HBR 20 MG TABLET] 60 tablet Sig: take 1 tablet by mouth once daily MAYRA-04/28/22 Labs-02/25/22 NOV-none med filled-06/22/22 Please review and advise. Elle Pritchett LPN documented in this encounter [facility] 06-21-2022 Miscellaneous Notes Left a message for pt to call the office to schedule a follow up apt. Patient has been identified by name and date of : Yes Pharmacy phones for refill(s): Requested Prescriptions Pending Prescriptions Disp Refills citalopram (CELEXA) 20 mg tablet [Pharmacy Med Name: CITALOPRAM HBR 20 MG TABLET] 30 tablet 1 Sig: take 1 tablet by mouth once daily Date of last office visit in primary care: 04/28/22 Last 2 Encounter Wt Readings: Date: Wt: 04/28/2022 108.5 kg (239 lb 3.2 oz) 03/22/2022 108.4 kg (239 lb) Previous labs/tests for medication: Not applicable Thank you. Aubrie Beauchamp LPN documented in this encounter [facility] 05-23-2022 Miscellaneous Notes 3rd attempt to schedule colonoscopy. Left VM, sent Recommendot message, and letter. Cancelling order, please place new orders when patient is ready to schedule. Thanks! WIN 05/23 2nd attempt to reach patient to schedule. Gave date of 05/09 with Gina. LV to contact if wishes to proceed with that date or another Kacie Montenegro Patient was scheduled for colonoscopy on 04/[address] [facility]omo [facility]. Per patient cancelled due to having kidney stones. LV to call me back directly at [phone] if patient wishes to proceed with scheduling or if they wants to hold off. Kacie Montenegro 04/28/31 [facility] documented in this encounter [facility] 04-28-2022 History of Presen t illness Narrative Chief Complaint Patient presents with: Medication Follow-up HPI Oswaldo Zambrano is a 52 year old male who presents here today for Above Complaints. Today: Is tolerating the Celexa well, but not feeling any different. Continues with lack of motivation, apathetic feeling. No SI/HI. Past medical history, appointments, medications, allergies reviewed. Previous Medical History PAST MEDICAL HISTORY Diagnosis Date Gastroesophageal reflux disease without esophagitis Heart attack (HCC) Hypertension Insomnia Mixed hyperlipidemia RLS (restless legs syndrome) Sleep apnea Previous Surgical History PAST SURGICAL HISTORY Procedure Laterality Date HEART CATHETERIZATION 08/19/2019 HERNIA REPAIR HX groin area OPEN/PERQ PLACEMENT INTRAVASCULAR STENT EA ADDL 08/19/2019 2 stents placed Family History FAMILY HISTORY Problem Relation Age of Onset No Known Problems Mother estranged from family-unaware of family hx Hypertension Father Cancer Sister unknown-estranged Multiple Sclerosis Sister passed at age 37 No Known Problems Maternal Grandmother No Known Problems Maternal Grandfather No Known Problems Paternal Grandmother No Known Problems Paternal Grandfather Patient Allergies ALLERGIES No Known Allergies Current Medications Current Outpatient Medications on File Prior to Visit Medication Sig Cholecalciferol, Vitamin D3, 125 mcg (5,000 unit) cap Take 1 capsule by mouth once daily. losartan (COZAAR) 25 mg tablet Take 0.5 tablets by mouth once daily. doxepin capsule 10 mg Take 1 capsule by mouth daily at bedtime. mirtazapine (REMERON) 15 mg tablet Take 3 tablets by mouth daily at bedtime. nitroglycerin sublingual (NITROQUICK) 0.4 mg SL tablet Dissolve 1 tablet under the tongue as directed. citalopram hydrobromide (CELEXA) 10 mg tablet Take 1 tablet by mouth once daily. atorvastatin (LIPITOR) 80 mg tablet Take 1 tablet by mouth once daily. metoprolol tartrate, short acting, (LOPRESSOR) 25 mg tablet Take 1 tablet by mouth twice daily. gabapentin (NEURONTIN) 800 mg tablet Take 1.5 tablets by mouth daily at bedtime. pramipexole (MIRAPEX) 0.5 mg tablet Take 0.5 mg by mouth once daily. aspirin 81 mg chewable tablet Take 81 mg by mouth once daily. No current facility-administered medications on file prior to visit. Social History Social History Tobacco Use Smoking status: Former Smokeless tobacco: Current Types: Chew Tobacco comments: quit smoking August 2017-has used chew since age 18 Vaping Use Vaping Use: Never used Substance Use Topics Drug use: Never Review of Symptoms REVIEW OF SYSTEMS See HPI, otherwise negative EXAM: BP 120/84 (BP Site: Left Arm, BP Position: Sitting, BP Cuff Size: Regular Adult) Pulse 78 Wt 108.5 kg (239 lb 3.2 oz) SpO2 96% BMI 29.12 kg/m General Appearance: Well appearing, alert, in no acute distress, well-hydrated, well nourished.. Heart: RRR without murmur, gallop, or rubs. No ectopy. Psychiatric: pleasant, cooperative, no SI/HI. Health Maintenance List HEPATITIS B(1 of 3 - 3-dose series) Never done BP CONTROLLED (<130/80) Never done DTAP,TDAP,TD(1 - Tdap) Never done COLORECTAL CANCER SCREENING Never done COVID-19 VACCINE(3 - Booster for Moderna series) due on 12/10/2021 SHINGRIX VACCINE(1 of 2) Never done INFLUENZA(1) due on 04/21/2022 DEPRESSION SCREENING due on 03/21/2023 ANNUAL PCP TEAM CHRONIC DISEASE VISIT due on 04/28/2023 DIABETES SCREEN due on 02/25/2025 LIPID SCREEN due on 02/25/2027 HEPATITIS C SCREENING Completed HIV SCREENING Completed Data reviewed Previous records, office notes ASSESSMENT/PLAN: 1. Depression, unspecified depression type - ICD9: 311, ICD10: F32.A Increase citalopram from 10mg to 20mg daily. Follow up in 6-8 weeks, sooner if necessary. - CITALOPRAM 20 MG TABLET Fely Bob APRN.KEEPER HELPER documented in this encounter [facility] 03-22-2022 History of Presen t illness Narrative HISTORY AND PHYSICAL Oswaldo Schulz Juan Manuel 1970 REFERRING PHYSICIAN: Fely Bob APRN* CHIEF COMPLAINT: Consult (Colonoscopy) HPI: The patient is a 52 year old male referred for endoscopy. Oswaldo notes no colon complaints. Patient denies any change in bowel habits, weight changes, blood in stools, black tarry stools or abdominal pain. Denies family history of colon issues. The patient notes no upper GI complaints. Oswaldo has not undergone prior endoscopy. Patient's past medical history is significant for heart attack in 2018. He notes he had been on Brilinta following this up until his most recent cardiology visit with [facility] 4-5 months ago. Patient states was taken off brilinta, now maintained on daily aspirin and was instructed to follow up with cardiology in 1 year. Patient denies chest pain, shortness of breath or recent hospitalizations. Denies problems with sedation in the past. PAST MEDICAL HISTORY Diagnosis Date Gastroesophageal reflux disease without esophagitis Heart attack (HCC) Hypertension Insomnia Mixed hyperlipidemia RLS (restless legs syndrome) Sleep apnea PAST SURGICAL HISTORY Procedure Laterality Date HEART CATHETERIZATION 08/19/2019 HERNIA REPAIR HX groin area OPEN/PERQ PLACEMENT INTRAVASCULAR STENT EA ADDL 08/19/2019 2 stents placed Current Outpatient Medications Medication Sig Cholecalciferol, Vitamin D3, 125 mcg (5,000 unit) cap Take 1 capsule by mouth once daily. losartan (COZAAR) 25 mg tablet Take 0.5 tablets by mouth once daily. doxepin capsule 10 mg Take 1 capsule by mouth daily at bedtime. mirtazapine (REMERON) 15 mg tablet Take 3 tablets by mouth daily at bedtime. nitroglycerin sublingual (NITROQUICK) 0.4 mg SL tablet Dissolve 1 tablet under the tongue as directed. citalopram hydrobromide (CELEXA) 10 mg tablet Take 1 tablet by mouth once daily. atorvastatin (LIPITOR) 80 mg tablet Take 1 tablet by mouth once daily. metoprolol tartrate, short acting, (LOPRESSOR) 25 mg tablet Take 1 tablet by mouth twice daily. gabapentin (NEURONTIN) 800 mg tablet Take 1.5 tablets by mouth daily at bedtime. pramipexole (MIRAPEX) 0.5 mg tablet Take 0.5 mg by mouth once daily. aspirin 81 mg chewable tablet Take 81 mg by mouth once daily. No current facility-administered medications for this visit. ALLERGIES: Patient has no known allergies. PERSONAL HISTORY: Social History Tobacco Use Smoking status: Former Smoker Smokeless tobacco: Current User Types: Chew Tobacco comment: quit smoking August 2017-has used chew since age 18 Vaping Use Vaping Use: Never used Substance Use Topics Alcohol use: Not on file Comment: very infrequently Drug use: Never FAMILY HISTORY: FAMILY HISTORY Problem Relation Age of Onset No Known Problems Mother estranged from family-unaware of family hx Hypertension Father Cancer Sister unknown-estranged Multiple Sclerosis Sister passed at age 37 No Known Problems Maternal Grandmother No Known Problems Maternal Grandfather No Known Problems Paternal Grandmother No Known Problems Paternal Grandfather REVIEW OF SYMPTOMS: The review of systems data was entered by the nurse and reviewed by md Nursing Notes: Elizabeth Bautista 03/22/2022 1:10 PM Signed REVIEW OF SYSTEMS: General: The patient NOTES fatigue, denies weight loss, denies weight gain, denies feeling hot, and denies feelings of cold. Eyes: The patient denies glaucoma, denies eye injury/surgery, wears glasses or contacts. Ear/Nose/Throat: The patient denies allergies, denies hayfever, denies ear infections, and denies bloody noses. Cardiovascular: The patient denies chest pain, NOTES heart disease, denies high blood pressure,NOTES cardiac stent, NOTES prior heart attack, denies irregular heart beat, NOTES high cholesterol, denies poor circulation, denies heart failure, other cardiac issues, denies claudication, denies cold feet, denies peripheral arterial stent. Respiratory: The patient denies tuberculosis, denies pneumonia, denies frequent cough, denies pulmonary embolism, denies shortness of breath, and denies coughing up blood. Gastrointestinal: The patient denies difficulty swallowing, NOTES acid reflux, denies ulcers, denies vomiting, denies jaundice/hepatitis, denies gallbladder problems, denies black or tarry stools, denies hemorrhoids, denies bleeding from rectum, denies diverticulitis, denies constipation, denies diarrhea, denies loss of stool control, and denies hernias. Kidney/Bladder: The patient denies kidney stones, denies urine infections, and denies bloody urine. Skin: The patient denies a history of skin cancer, denies bleeding/changing moles, and denies a history of skin rash. Neurologic: The patient denies a history of epilepsy/convulsions, denies headaches, denies head/spinal injuries, and denies stroke/TIA. Psychiatric: The patient denies psychiatric medications, denies depression, and denies voices, denies substance abuse. Endocrine: The patient denies thyroid disorders, denies diabetes, and denies hormonal problems. Hematologic: The patient denies a history of bruising, denies bleeding, and denies anemia, denies blood clots. Infections: The patient denies a history of measles and mumps, denies rheumatic fever, and denies sexually transmitted diseases. Musculoskeletal: The patient denies back pain/injury, denies back problems, denies sciatica, denies knee/foot trouble, denies arthritis, or denies gout. When was patient's last Mammogram screening? N/A Last Colonoscopy: None Elizabeth Bautista I have confirmed and edited as necessary, the PFSH and ROS obtained by others. Jennifer Marie PA-C PHYSICAL EXAMINATION: General: The patient is 52 year old male, well nourished, well hydrated in no acute distress. The patient is oriented to time, place, and person. VITALS: Blood pressure 130/83, pulse 87, temperature 37.2 C (99 F), height 193 cm (6' 4 ), weight 108.4 kg (239 lb), SpO2 97 %. Body mass index is 29.09 kg/m . HEENT: Normal cephalic, ataumatic, pupils are equally round, sclera are anicteric, mucous membranes are moist, oropharynx is clear. Neck has no masses, asymmetry or lymphadenopathy. Respiratory: Clear to auscultation and percussion. Normal respiratory excursion and pattern. Cardiac: Examination is regular rate and rhythm. Normal S1/S2 Abdominal exam: Soft, nontender, with no palpable masses. No hepatosplenomegaly. No palpable hernias. Extremities: no clubbing, cyanosis or edema. No adenopathy. LABORATORY VALUES: As Noted RADIOLOGIC STUDIES: As Noted Assessment IMPRESSION: encounter for screening colonoscopy PLAN: I have reviewed my findings with the surgeon. Will plan for lower endoscopy. We discussed the risks and benefits of the planned endoscopy. I have informed the patient that complications can occur including failure to complete the endoscopy and perforation. The patient had the opportunity to ask questions concerning the planned endoscopy. My staff has also explained the procedure to the patient in understandable terms and has given the patient printed material concerning the procedure. The patient freely consents to surgery. The patient was offered a surgery/procedure at a [facility] facility. I have counseled the patient regarding the risk of exposure to and/or potential harm posed by the COVID-19 virus with having a surgery/procedure at this time versus the risk of delaying the surgery/procedure. It is not possible to know either the risk of delaying the surgery or procedure or chance of getting an infection with perfect accuracy, but a joint decision was made between the patient and myself to proceed at this time with endoscopy. I plan to use Golytely bowel preparation Patient to remain on his routine medications, including his aspirin, for the procedure Diagnoses: (Z12.11) Screening for colon cancer Consultation requested by Fely Bob CNP for an opinion regarding screening colonoscopy. My final recommendations will be communicated back to the requesting physician by way of shared Medical record or letter to requesting physician via US mail. Jennifer Marie PA-C documented in this encounter [facility] 03-22-2022 Nurse Note REVIEW OF SYSTEMS: General: The patient NOTES fatigue, denies weight loss, denies weight gain, denies feeling hot, and denies feelings of cold. Eyes: The patient denies glaucoma, denies eye injury/surgery, wears glasses or contacts. Ear/Nose/Throat: The patient denies allergies, denies hayfever, denies ear infections, and denies bloody noses. Cardiovascular: The patient denies chest pain, NOTES heart disease, denies high blood pressure,NOTES cardiac stent, NOTES prior heart attack, denies irregular heart beat, NOTES high cholesterol, denies poor circulation, denies heart failure, other cardiac issues, denies claudication, denies cold feet, denies peripheral arterial stent. Respiratory: The patient denies tuberculosis, denies pneumonia, denies frequent cough, denies pulmonary embolism, denies shortness of breath, and denies coughing up blood. Gastrointestinal: The patient denies difficulty swallowing, NOTES acid reflux, denies ulcers, denies vomiting, denies jaundice/hepatitis, denies gallbladder problems, denies black or tarry stools, denies hemorrhoids, denies bleeding from rectum, denies diverticulitis, denies constipation, denies diarrhea, denies loss of stool control, and denies hernias. Kidney/Bladder: The patient denies kidney stones, denies urine infections, and denies bloody urine. Skin: The patient denies a history of skin cancer, denies bleeding/changing moles, and denies a history of skin rash. Neurologic: The patient denies a history of epilepsy/convulsions, denies headaches, denies head/spinal injuries, and denies stroke/TIA. Psychiatric: The patient denies psychiatric medications, denies depression, and denies voices, denies substance abuse. Endocrine: The patient denies thyroid disorders, denies diabetes, and denies hormonal problems. Hematologic: The patient denies a history of bruising, denies bleeding, and denies anemia, denies blood clots. Infections: The patient denies a history of measles and mumps, denies rheumatic fever, and denies sexually transmitted diseases. Musculoskeletal: The patient denies back pain/injury, denies back problems, denies sciatica, denies knee/foot trouble, denies arthritis, or denies gout. When was patient's last Mammogram screening? N/A Last Colonoscopy: None Elizabeth Bautista documented in this encounter [facility] 02-25-2022 Instructions Fely Bob APRN.CNP - 02/25/2022 12:51 PM EDT Have your labs drawn, I typically have results in 1-2 days. documented in this encounter [facility] 02-25-2022 History of Presen t illness Narrative Chief Complaint Patient presents with: Establish Care HPI Oswaldo Zambrano is a 52 year old male who presents here today for Above Complaints. Today: Here to establish care. Very fatigued, feels blah but not necessarily depressed. 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 Uses CPAP but due for sleep study, per neurology. Sees cardiology group at [facility]. Past medical history, appointments, medications, allergies reviewed. Previous Medical History PAST MEDICAL HISTORY Diagnosis Date Gastroesophageal reflux disease without esophagitis Heart attack (HCC) Hypertension Insomnia Mixed hyperlipidemia RLS (restless legs syndrome) Sleep apnea Previous Surgical History PAST SURGICAL HISTORY Procedure Laterality Date HEART CATHETERIZATION 08/19/2019 HERNIA REPAIR HX groin area OPEN/PERQ PLACEMENT INTRAVASCULAR STENT EA ADDL 08/19/2019 2 stents placed Family History FAMILY HISTORY Problem Relation Age of Onset No Known Problems Mother estranged from family-unaware of family hx Hypertension Father Cancer Sister unknown-estranged Multiple Sclerosis Sister passed at age 37 No Known Problems Maternal Grandmother No Known Problems Maternal Grandfather No Known Problems Paternal Grandmother No Known Problems Paternal Grandfather Patient Allergies ALLERGIES No Known Allergies Current Medications Current Outpatient Medications on File Prior to Visit Medication Sig atorvastatin (LIPITOR) 80 mg tablet Take 1 tablet by mouth once daily. lisinopril 2.5 mg tablet Take 1 tablet by mouth once daily. metoprolol tartrate, short acting, (LOPRESSOR) 25 mg tablet Take 1 tablet by mouth twice daily. nitroglycerin sublingual (NITROQUICK) 0.4 mg SL tablet Dissolve 1 tablet under the tongue as directed. gabapentin (NEURONTIN) 800 mg tablet Take 1.5 tablets by mouth daily at bedtime. ramelteon (ROZEREM) 8 mg tablet Take 1 tablet by mouth once daily. pramipexole (MIRAPEX) 0.5 mg tablet Take 0.5 mg by mouth once daily. aspirin 81 mg chewable tablet Take 81 mg by mouth once daily. BRILINTA 90 mg tablet Take 1 tablet by mouth twice daily. (Patient not taking: Reported on 02/25/2022 ) benzonatate (TESSALON PERLES) 100 mg capsule Take 1-2 capsules by mouth three times daily as needed. (Patient not taking: Reported on 02/25/2022 ) No current facility-administered medications on file prior to visit. Social History Social History Tobacco Use Smoking status: Former Smoker Smokeless tobacco: Current User Vaping Use Vaping Use: Never used Substance Use Topics Alcohol use: Not on file Drug use: Not on file Review of Symptoms REVIEW OF SYSTEMS See HPI, otherwise negative EXAM: BP 130/96 (BP Site: Left Arm, BP Position: Sitting, BP Cuff Size: Regular Adult) Pulse 95 Resp 16 Ht 194 cm (6' 4.38 ) Wt 107.1 kg (236 lb 3.2 oz) SpO2 95% BMI 28.47 kg/m General Appearance: Well appearing, alert, in no acute distress, well-hydrated, well nourished.. Skin: Skin color, texture, turgor normal, no suspicious rashes or lesions. Head: Normocephalic, no masses, lesions, tenderness or abnormalities. Ears: External ears normal, canals clear. Nose/Sinuses: Nares normal, septum midline, mucosa normal, no drainage or sinus tenderness. Oropharynx: Lips, mucosa, and tongue normal, teeth and gums normal, oropharynx normal. Upper dentures. Neck: Supple, no adenopathy; thyroid symmetric, normal size, no bruits. Lungs: Lungs clear to auscultation. No wheezing, rhonchi, rales.. Heart: RRR without murmur, gallop, or rubs. No ectopy. Abdomen: Normal abdominal exam, Abdomen soft, non-tender. Bowel sounds normal. No masses, organomegaly. Extremities: No deformities, edema, skin discoloration, clubbing or cyanosis. Good capillary refill. . Peripheral Pulses: Normal. Neurologic: Gait normal. Reflexes normal and symmetric. Sensation grossly intact.. Lymph Nodes: No cervical lymphadenopathy and No supraclavicular lymphadenopathy. Psychiatric: pleasant, cooperative, no SI/HI. Health Maintenance List COVID-19 VACCINE(1) Never done DEPRESSION SCREENING Never done HEPATITIS C SCREENING Never done HIV SCREENING Never done DTAP,TDAP,TD(1 - Tdap) Never done LIPID SCREEN Never done DIABETES SCREEN Never done COLORECTAL CANCER SCREENING Never done SHINGRIX VACCINE(1 of 2) due on 02/20/2022 INFLUENZA(1) due on 04/21/2022 Data reviewed Previous records, office notes ASSESSMENT/PLAN: 1. Well adult exam - ICD9: V70.0, ICD10: Z00.00 (primary diagnosis) - Counseled on healthy diet and regular exercise - CBC - COMP METABOLIC PANEL - TSH BLD - HGB A1C - VITAMIN D 25 HYDROXY - LIPID PANEL BASIC - HIV 1 2 COMBO(AG/AB),WITH REFLEX TO DIFFERENTIATION - HEP C AB IA W/CONF SCRN 2. Hyperlipidemia, mixed - ICD9: 272.2, ICD10: E78.2 - LIPID PANEL BASIC 3. Screening for HIV (human immunodeficiency virus) - ICD9: V73.89, ICD10: Z11.4 - HIV 1 2 COMBO(AG/AB),WITH REFLEX TO DIFFERENTIATION 4. Special screening examination for viral disease - ICD9: V73.99, ICD10: Z11.59 - HEP C AB IA W/CONF SCRN 5. Screening for diabetes mellitus - ICD9: V77.1, ICD10: Z13.1 - CBC - COMP METABOLIC PANEL - HGB A1C 6. Screening for thyroid disorder - ICD9: V77.0, ICD10: Z13.29 - TSH BLD 7. Encounter for vitamin deficiency screening - ICD9: V77.99, ICD10: Z13.21 - VITAMIN D 25 HYDROXY 8. Screening for colon cancer - ICD9: V76.51, ICD10: Z12.11 - CONSULT TO GENERAL SURGERY 9. Depression, unspecified depression type - ICD9: 311, ICD10: F32.A - CITALOPRAM 10 MG TABLET Fely Bob APRN.CNP documented in this encounter [facility] documented [facility] encounter [facility]* Diagnosis Screening for colon cancer Special screening for malignant neoplasms, colon documented in this encounter [facility] note* Diagnosis Depression, unspecified depression type documented in this encounter [facility] note* Diagnosis Screening for colon cancer- Primary Special screening for malignant neoplasms, colon documented in this encounter [facility] note* Diagnosis Depression, unspecified depression type documented in this encounter [facility] note* Diagnosis Well adult exam- Primary Routine general medical examination at a health care facility Depression, unspecified depression type Seasonal allergies Allergic rhinitis, cause unspecified Hyperlipidemia, mixed Mixed hyperlipidemia Vitamin D deficiency Unspecified vitamin D deficiency Hx of myocardial infarction Old myocardial infarction RLS (restless legs syndrome) Restless legs syndrome (RLS) Primary insomnia Persistent disorder of initiating or maintaining sleep Screening for colon cancer Special screening for malignant neoplasms, colon [facility] Outpatient Procedure (Routine) - Authorized Specialty Diagnoses / Procedures Referred By Jose Eduardo t Referred To Contact [facility] Diagnoses Screening for colon cancer Procedures COLONOSCOPY SCREENING COLONOSCOPY FLX DX W/COLLJ SPEC WHEN PFRMD Jennifer Marie PA-C [address] [place] [address] [facility] [address] [place] [address] Referral ID Status Reason Start Date Expiration Date Visits Requested Visits Authorized [id number] Authorized Auto-Generat ed Referral 03/22/2022 03/22/2023 1 1 [facility] for referral (narrative)* Outpatient Procedure (Routine) - Pending Review Specialty Diagnoses / Procedures Referred By Contac t Referred To Contact [facility] Diagnoses Screening for colon cancer Well adult exam Procedures COLONOSCOPY SCREENING COLONOSCOPY FLX DX W/COLLJ SPEC WHEN PFRMD Fely Bob APRN.CNP [address] [place] [address] [facility] [address] [place] [address] Referral ID Status Reason Start Date Expiration Date Visits Requested Visits Authorized [id number] Pending Review Auto-Generat ed Referral 04/19/2023 04/19/2024 1 1 [facility] Summary Purpose Family History No Family History Records FoundNo Family History Records Found Advance Directives No Advanced Directives Records FoundNo Advanced Directives Records Found Reason for Referral Specialty Diagnoses / Procedures Referred By Contac t Referred To Contact General Surgery Diagnoses Screening for colon cancer Procedures CONSULT TO GENERAL SURGERY OFFICE/OUTPATIENT [facility] HIGH MDM 60-74 MINUTES Fely Bob APRN.KEEPER HELPER [address] [place] [address] Referral ID Status Reason Start Date Expiration Date Visits Requested Visits Authorized [id number] Authorized PCP Requested Referral 02/25/2022 02/25/2023 1 1 Additional Source Comments (unrecognized sect ion and content) No Status Records FoundNo Status Records Found INFORMATION SOURCE (unrecogn ized section and content) DATE CREATED AUTHOR AUTHOR'S ORGANIZ ATION 08/29/2023 [facility] Source Comments (unrecognize d section and content) In the event this informatio n is protected by the Federal Confidentiality of Alcohol and Drug Abuse Patient Records regulations: The Federal rules restrict any use of the information to criminally investigate or prosecute any alcohol or drug abuse patient.[facility] the event this information is protected by the Federal Confidentiality of Alcohol and Drug Abuse Patient Records regulations: The Federal rules restrict any use of the information to criminally investigate or prosecute any alcohol or drug abuse patient.[facility] the event this information is protected by the Federal Confidentiality of Alcohol and Drug Abuse Patient Records regulations: The Federal rules restrict any use of the information to criminally investigate or prosecute any alcohol or drug abuse patient.[facility] the event this information is protected by the Federal Confidentiality of Alcohol and Drug Abuse Patient Records regulations: The Federal rules restrict any use of the information to criminally investigate or prosecute any alcohol or drug abuse patient.[facility] the event this information is protected by the Federal Confidentiality of Alcohol and Drug Abuse Patient Records regulations: The Federal rules restrict any use of the information to criminally investigate or prosecute any alcohol or drug abuse patient.[facility] the event this information is protected by the Federal Confidentiality of Alcohol and Drug Abuse Patient Records regulations: The Federal rules restrict any use of the information to criminally investigate or prosecute any alcohol or drug abuse patient.[facility] the event this information is protected by the Federal Confidentiality of Alcohol and Drug Abuse Patient Records regulations: The Federal rules restrict any use of the information to criminally investigate or prosecute any alcohol or drug abuse patient.[facility] Reason for Visit (unrecogniz ed section and content) Reason Comments Consult Colonoscopy Specialty Diagnoses / Procedures Referred By Jose Eduardo sevilla Referred To Contact General Surgery Diagnoses Screening for colon cancer Procedures CONSULT TO GENERAL SURGERY OFFICE/OUTPATIENT NEW HIGH MDM 60-74 MINUTES Fely Bob APRN.KEEPER HELPER [address] [place] [address] Referral ID Status Reason Start Date Expiration Date V isits Requested Visits Authorized [id number] Closed PCP Requested Referral 02/25/2022 02/25/2023 1 1 Reason Comments Medication Follow-up Reason Comments 04/20 COLON [facility] Reason Comments Refill Request Reason Comments Medication Follow-up Care Teams (unrecognized sec tion and content) Mushroom Cutter Relationship Specialty Start Date End Date Fely Bob APRN.KEEPER HELPER [address] [place] [address] PCP - General Family Practice 02/24/22 Mushroom Cutter Relationship Specialty Start Date End Date Fely Bob, YARN EXAMINER SKEINS.KEEPER HELPER [address] [place], [place] [id number] PCP - General Family Practice 02/24/22 Mushroom Cutter Relationship Specialty Start Date End Date Fely Bob, YARN EXAMINER SKEINS.KEEPER HELPER [address] [place], [place] [address] PCP - General Family Medicine 02/24/22 Mushroom Cutter Relationship Specialty Start Date End Date Fely Bob, YARN EXAMINER SKEINS.KEEPER HELPER [address] [place], [place] [id number] PCP - General Family Medicine 02/24/22 Mushroom Cutter Relationship Specialty Start Date End Date Fely Bob, YARN EXAMINER SKEINS.KEEPER HELPER [address] [place], [place] [id number] PCP - General Family Medicine 02/24/22 FOR RECORDS PERTAINING TO PATIENTS WHO ARE OR HAVE BEEN ENROLLED IN A CHEMICAL DEPENDENCY/SUBSTANCEABUSE PROGRAM, SOME INFORMATION MAY BE OMITTED. This clinical summary was aggregated from multiple sources. Caution should be exercised in using it in the provision of clinical care. This summary normalizes information from multiple sources, and as a consequence, information in this document may materially change the coding, format and clinical context of patient data. In addition, data may be omitted in some cases. CLINICAL DECISIONS SHOULD BE BASED ON THE PRIMARY CLINICAL RECORDS. [employer] [facility]. provides no warranty or guarantee of the accuracy or completeness of information in this document.
[2023-09-13 12:51] LABS: AST(SGOT) 34 U/L (15-37); Alanine Aminotransfer ALT/SGPT 53 U/L (16-61); Albumin, Serum 3.9 g/dL (3.2-5.0); Alkaline Phosphatase 103 U/L (45-117); Bilirubin, Direct 0.21 mg/dL (0.00-0.30); Cholesterol 128 mg/dL (200); Globulin 3.5 g/dL (2.2-4.2); High Density Lipoprotein 43 mg/dL; Protein, Total 7.4 g/dL (6.4-8.2); Triglycerides 75 mg/dL; Very Low Density Lipoprotein 15 mg/dL (5-40)
== END | disposition home or self-care (01) ==
LOC: LAB 10:00
PROVIDERS: PCP Nurse Practitioner Family; Referring Provider Nurse Practitioner Gerontology; Visit Provider Nurse Practitioner Gerontology
DX: E78.5 Hyperlipidemia, unspecified (principal)
CPT/HCPCS: 36415; 80061; 80076